=== PATIENT | male | born 1985 | race Caucasian/White ===

== ENCOUNTER → 2019-09-11 16:46 | Outpatient (CLI) | payer MEDICAID, SELFPAY ==
[2019-09-14 11:02] LABS: Neisseria gonorrhoeae, NAA Negative (Negative)
== END ==
PROVIDERS: Visit Provider Physician Assistant
DX: R30.0 Dysuria (principal)
CPT/HCPCS: 87491; 87591

== ENCOUNTER → 2019-09-23 12:45 | Outpatient (CLI) | payer MEDICAID, SELFPAY ==
--- NOTE | 2019-09-23 12:47 | XR_ITS ---
PROCEDURE: XR CHEST 2V CLINICAL HISTORY: cough Productive cough, smoker, chest pain COMPARISON: CXR2 XR chest AP from 06/01/2018 FINDINGS: The cardiomediastinal silhouette and pulmonary vascularity are within normal limits. The lungs are clear without infiltrates, suspicious nodules, or pleural effusions. No acute bony abnormalities. IMPRESSION: No acute findings. Dictated by: Kong Gonzalez MD 09/23/2019 17:23 Electronically signed by Kong Gonzalez MD in [place] 09/23/2019 17:23
== END ==
PROVIDERS: PCP Emergency Medicine; Referring Provider Nurse Practitioner Family; Visit Provider Nurse Practitioner Family
DX: R05 Cough (principal); F17.200 Nicotine dependence, unspecified, uncomplicated
CPT/HCPCS: 71046

== ENCOUNTER 2021-01-12 20:07 | Emergency (ER) | payer MEDICAID, SELFPAY ==
[2021-01-12 20:05] VITALS: BP 162/77; PULSE 87; RESP 18; TEMP 36.6; O2SAT 96; BMI 32.1
--- NOTE | 2021-01-12 20:14 | XR_ITS ---
PROCEDURE: XR CHEST AP CLINICAL HISTORY: fall Posttraumatic pain COMPARISON: CR CXR2 XR chest AP from 06/01/2018 CR XR CHEST 2V from 09/23/2019 FINDINGS: The cardiomediastinal silhouette and pulmonary vascularity are within normal limits. The lungs are clear without infiltrates, suspicious nodules, or pleural effusions. No acute bony abnormalities. IMPRESSION: No acute findings. Dictated by: Kong Gonzalez MD 01/13/2021 06:42 Kong Gonzalez MD in [place] 01/13/2021 06:42
--- NOTE | 2021-01-12 20:14 | XR_ITS ---
PROCEDURE: XR KNEE LT 3V CLINICAL INDICATION: fall Posttraumatic pain COMPARISON: No exams were available for comparison FINDINGS: No acute fracture or dislocation. Overlying artifact present from the patient's garment and multiple small opacities which could be due to soft tissue calcifications or artifact from something upon the patient or within the patient's garment. Exostosis is present at posterior distal aspect of the femur which may be due to muscular attachment and may be confirmed with follow-up. Other findings:Minimal osteoarthritic changes IMPRESSION: As above, no acute finding Dictated by: Kong Gonzalez MD 01/13/2021 06:46 Kong Gonzalez MD in [facility] 01/13/2021 06:46
--- NOTE | 2021-01-12 20:14 | CT_ITS ---
PROCEDURE: CT HEAD/BRAIN WO CON CLINICAL INDICATION: fall Head injury with headache/pain, contusion, abrasion or hematoma COMPARISON: CT HEADWO CT head/brain wo con from 06/01/[address] CERVICAL SPINE WO CON from 01/12/2021 TECHNIQUE: Axial images obtained. All CT scans at the facility use one or more dose reduction, viz: automated exposure control, ma/kV adjustment per patient size (including targeted exams where dose is matched to indication, i.e. head), or iterative reconstruction technique. FINDINGS: No midline shift, mass effect, intracranial hemorrhage, hydrocephalus, or extra-axial fluid collection is evident. The calvarium has an unremarkable appearance. No mastoid effusion. There is mild mucosal thickening of the ethmoid sinuses. Air-fluid levels present in the sphenoid sinus on the left IMPRESSION: No acute intracranial finding Dictated by: Kong Gonzalez MD 01/13/2021 09:01 Kong Gonzalez MD in [facility] 01/13/2021 09:01
--- NOTE | 2021-01-12 20:14 | XR_ITS ---
PROCEDURE: XR PELVIS 1-2V CLINICAL INDICATION: fall Posttraumatic pain COMPARISON: CR PEL1V XR pelvis 1-2V from 06/01/2018 TECHNIQUE: XR Pelvis AP View FINDINGS: No fracture or dislocation is evident. No significant degenerative change. Overlying artifact noted the mid pelvic region and right hip area with linear areas of lucency IMPRESSION: No acute findings. Dictated by: Kong Gonzalez MD 01/13/2021 06:43 Kong Gonzalez MD in [facility] 01/13/2021 06:43
--- NOTE | 2021-01-12 20:14 | CT_ITS ---
PROCEDURE: CT CERVICAL SPINE WO CON CLINICAL INDICATION: fall Neck injury with pain, contusion/abrasion or hematoma, cervical sprain/strain the COMPARISON: CT SPCERVWO CT cervical spine wo con from 06/01/[address] HEAD/BRAIN WO CON from 01/12/2021 TECHNIQUE: Axial images obtained with sagittal and coronal reformats. All CT scans at the facility use one or more dose reduction, viz: automated exposure control, ma/kV adjustment per patient size (including targeted exams where dose is matched to indication, i.e. head), or iterative reconstruction technique. Axial spiral CT scanning performed of the cervical spine beginning at the base of the skull and continuing to the upper T-spine. 3-D multiplanar reconstruction with 3-D manipulation of volumetric data set in image rendering was completed by the radiologist and/or technologist with the supervision of the radiologist on independent workstation. FINDINGS: Normal alignment. No fracture or dislocation. Mild bulging disc is present at C4-C5 eccentric toward the left. This may be better evaluated with MRI if clinically warranted. Lung apices are clear. IMPRESSION: 1. No acute fracture. 2. Mild bulging disc C4-C5 Dictated by: Kong Gonzalez MD 01/13/2021 09:05 Kong Gonzalez MD in [facility] 01/13/2021 09:05
[2021-01-12 20:22] LABS: Basophils # 0.1 K/mm3 (0-0.2); Chloride 100 mmol/L (98-107); Eosinophils # 0.8 K/mm3 (0.0-0.4); Eosinophils % 5.5 % (0.1-12.0); Hematocrit 51.2 % (42.0-52.0); Lymphocytes # 4.1 K/mm3 (0.7-4.5); Lymphocytes % 29.1 % (10-50); Mean Corpuscular HGB Conc 33.1 g/dL (31.8-35.4); Mean Corpuscular Hemoglobin 32.2 pg (27.0-31.2); Mean Corpuscular Volume 97.2 fl (80-94); Mean Platelet Volume 7.7 fl (7.4-10.4); Monocytes # 0.6 K/mm3 (0.1-1.0); Monocytes % 4.3 % (1.7-9.3); Neutrophils # 8.4 K/mm3 (1.8-7.8); Neutrophils % 60.1 % (37.0-80.0); Platelet Count 259 K/mm3 (142-424); Red Blood Count 5.27 M/mm3 (4.60-6.20); Red Cell Distribution Width 13.6 % (11.5-17.5); Sodium 140 mmol/L (136-145)
[2021-01-12 20:25] LABS: Alanine Aminotransferase 82 U/L (12-78); Alkaline Phosphatase 95 U/L (38-126); Aspartate Amino Transferase 57 U/L (17-59); Bilirubin,Total 1.1 mg/dl (0.2-1.3); Blood Urea Nitrogen 9 mg/dl (9-20); Calcium 9.6 mg/dl (8.4-10.2); Carbon Dioxide 33 mmol/L (22.0-30.0); Creatine Kinase 128 U/L (55-170); Creatinine Clearance Estimated 192 mL/min (50-200); Estimated Glomerular Filt Rate 111 ml/min (>60); GFR (African American) 134 ML/MIN (>60); Glucose 99 mg/dl (74-100)
--- NOTE | 2021-01-12 20:25 | HMH.EDLOEX ---
ED Disposition Clinical Impression: Acute internal derangement of knee Qualifiers: Laterality: left Qualified Code(s): M23.92 - Unspecified internal derangement of left knee Fall Qualifiers: Encounter type: initial encounter Qualified Code(s): W19.XXXA - Unspecified fall, initial encounter Disposition: Home, Self-Care Condition on Discharge: Good Instructions: DI for Knee Pain Additional Instructions: call pcp and ortho for follow up Referrals: Cedrick Dill MD [Primary Care Provider] - Dariusz Heath MD [Staff Physician] - - Critical Care Critical Care Time: No Attestation: On 01/12/21, the high probability of a clinically significant, sudden or life threatening deterioration of the following system(s) required my full and direct attention, intervention and personal management. The time I documented below is in addition to time spent performing reported procedures but includes the following listed in this critical care notation. Medical Decision Making - Medical Records Medical records reviewed: Yes: I reviewed the patient's medical records. - Sukhdeep Inquiry Pt receiving controlled substance: No Vital Signs: 01/12/21 20:05 Temperature 97.8 F Temperature Source Oral Pulse Rate [Right] 87 Respiratory Rate 18 Blood Pressure [Right Arm] 162/77 H Blood Pressure Mean [Right Arm] 105 Blood Pressure Source [Right Arm] Automatic Cuff Blood Pressure Position [Right Arm] Supine 02 Sat by Pulse Oximetry 96 Oxygen Delivery Method Room Air - Lab Data Lab results reviewed: Yes: I reviewed the patient's lab results. Lab Results 01/12/21 20:04: WBC 14.0 H, RBC 5.27, Hgb 17.0, Hct 51.2, MCV 97.2 H, MCH 32.2 H, MCHC 33.1, RDW 13.6, Plt Count 259, MPV 7.7, Neut % (Auto) 60.1, Lymph % (Auto) 29.1, Rhea % (Auto) 4.3, Eos % (Auto) 5.5, Baso % (Auto) 1.0, Neut # (Auto) 8.4 H, Lymph # (Auto) 4.1, Rhea # (Auto) 0.6, Eos # (Auto) 0.8 H, Baso # (Auto) 0.1 01/12/21 20:04: Sodium 140, Potassium 4.0, Chloride 100, Carbon Dioxide 33 H, Anion Gap 11.0, BUN 9, Creatinine 0.80, Estimated Creat Clear 192, Estimated GFR 111, Est GFR ( Amer) 134, Glucose 99, Calcium 9.6, Total Bilirubin 1.1, AST 57, ALT 82 H, Alkaline Phosphatase 95, Total Creatine Kinase 128, C-Reactive Protein 5.5 H, Total Protein 8.3 H, Albumin 4.7, Globulin 3.6 H, Albumin/Globulin Ratio 1.3 01/12/21 20:04: ESR 2 Result diagrams: 01/12/21 20:04 01/12/21 20:04 Orders (Tests/Meds): ED MEDICATIONS Discontinued Medications Generic Name Dose Route Start Last Admin Trade Name Freq PRN Reason Stop Dose Admin Ketorolac Tromethamine 30 mg 01/12/21 20:25 01/12/21 20:27 Ketorolac 30mg/Ml Vial IV 01/12/21 20:26 30 mg ONCE ONE Administration Ondansetron HCl 4 mg 01/12/21 20:27 01/12/21 20:27 Ondansetron 4mg/2ml Vial IV 01/12/21 20:28 4 mg ONCE ONE Administration ORDERS Category Date Time Status CT cervical spine wo con Stat Cat Scan 01/12/21 20:[address] head/brain wo con Stat Cat Scan 01/12/21 20:14 Taken XR chest AP Stat Exams 01/12/21 20:14 Taken XR knee LT 3V Stat Exams 01/12/21 20:14 Taken XR pelvis 1-2V Stat Exams 01/12/21 20:14 Taken - Radiology Data #1 Image(s): Chest, Pelvis, Knee Image Reviewed: Yes I reviewed the patient's radiology image Preliminary Findings: No Fracture Seen - CT Data CT Scan: Head, C-Spine Time Received: 21:[address] Reviewed: Yes: I have viewed the radiologist's interpretation Preliminary Findings: No Fracture Seen Medical Decision Narrative: has possible ext tendon injury will place in splint and refer to ortho Lower Extremity Injury HPI - General Chief Complaint: Extremity Injury, Lower Stated Complaint: knee pain Time Seen by Provider: 01/12/21 20:15 Mode of Arrival: EMS Source of Information: Patient, EMS, Medical Record Limitations: No Limitations Description of Symptoms (Recalled from ER Triage Doc. by RN): Pt states he fell on the ice and in
[2021-01-12 20:26] LABS: Albumin Level 4.7 g/dl (3.5-5.0); Albumin/Globulin Ratio 1.3 (1.1-1.8); Globulin 3.6 g/dL (1.3-3.2); Total Protein,Serum 8.3 g/dl (6.3-8.2)
[2021-01-12 20:30] VITALS: BP 119/66; PULSE 77; RESP 17; O2SAT 99
[2021-01-12 20:31] LABS: C-Reactive Protein 5.5 mg/L (0-4)
[2021-01-12 20:46] LABS: Erythrocyte Sedimentation Rate 2 mm/hr (0-15)
[2021-01-12 21:03] VITALS: BP 127/69; PULSE 79; RESP 17; O2SAT 98
[2021-01-12 21:44] VITALS: BP 158/76; PULSE 82; RESP 18; TEMP 36.6; O2SAT 96
== END 2021-01-12 21:48 | disposition home or self-care (01) ==
PROVIDERS: Emergency Provider Emergency Medicine; PCP Emergency Medicine
DX: M23.92 Unspecified internal derangement of left knee (principal); W00.0XXA Fall on same level due to ice and snow, initial encounter; Y92.89 Other specified places as the place of occurrence of the external cause; K21.9 Gastro-esophageal reflux disease without esophagitis; F17.210 Nicotine dependence, cigarettes, uncomplicated
CPT/HCPCS: 29505; 70450; 71045; 72125; 72170; 73562; 80053; 82550; 85025; 85651; 86140; 96374; 96375; 99283; J2405

== ENCOUNTER 2021-03-16 12:05 | Inpatient (IN) | payer MEDICAID, SELFPAY ==
[2021-03-16] VITALS (16 sets, daily range): BP systolic 114–147; BP diastolic 55–92; PULSE 66–101; RESP 16–20; TEMP -7.7–38.3; O2SAT 94–98; BMI 30.7; BMI 31.2; BMI 30.1
--- NOTE | 2021-03-16 12:23 | HMH.EDUTC ---
[facility] [place] Clinical Impression: Strep throat Disposition: Still a Patient Condition on Discharge: Undetermined Referrals: Cedrick Dill MD [Primary Care Provider] - Time of Disposition: 12:41 Medical Decision Making - Sukhdeep Inquiry Pt receiving controlled substance: No Vital Signs: 03/16/21 12:06 Temperature 98.8 F Temperature Source Oral Pulse Rate [Radial] 101 H Respiratory Rate 20 Blood Pressure [Right Arm] 137/84 Blood Pressure Mean [Right Arm] 101 Blood Pressure Position [Right Arm] Sitting 02 Sat by Pulse Oximetry 98 Oxygen Delivery Method Room Air Medical Decision Narrative: Exam suspicious for left peritonsillar abscess - sent to ER for further evaluation/imaging [facility] [place] - General Stated complaint: sore throat swollen Time Seen by Provider: 03/16/21 12:37 Mode of Arrival: Ambulatory Source of Information: Patient Limitations: No Limitations Description of Symptoms (Recalled from Triage Doc. by RN): TO ED PER [facility] CAR WITH C/O SORE THROAT STATES DX WITH STREP WEDNESDAY AT AN URGENT CARE GIVEN ANTIBIOTICS AND STEROID INJECTION WITH NO RELIEF IN SYMPTOMS. - History of Present Illness Provider Complaint: Patient states that he was diagnosed with strep throat on 03/13/21. He was seen at a different [facility] and was given shots and an antibiotic that he takes three times a day, but he can't recall what it is called. He is still running fever, feels like he cannot swallow, complains of drooling and muffled voice. Onset (ago): day(s) (3) Location: mouth Relieving factors: none Exacerbating factors: none Associated symptoms: fever/chills, malaise Treatments prior to arrival: none - Related Data Home Medications Medication Instructions Recorded Confirmed Omeprazole [Omeprazole 40mg 40 mg PO DAILY 06/01/18 02/07/21 Capsule] Previous Rx's Medication Instructions Recorded meloxicam 15 mg tablet 15 mg PO DAILY #10 tab 01/14/21 fluoxetine 40 mg capsule 40 mg PO DAILY #30 cap 02/07/21 trazodone 50 mg tablet 50 mg PO HS #30 tab 02/07/21 Allergies Allergy/AdvReac Type Severity Reaction Status Date / Time erythromycin base Allergy Verified 03/16/21 12:32 Penicillins Allergy Verified 03/16/21 12:32 [facility] History - Hepatitis A Screen Attestation statement:: This patient has been screened for Hepatitis A risk factors. I have reviewed the patient's past medical history: Yes Medical History: Reports:: Anxiety, Depression, Gastroesophageal Reflux Disease(GERD) Denies:: Cancer, Chronic Obstructive Pulmonary Disease (COPD), Diabetes Mellitus Type 1, Diabetes Mellitus Type 2, MRSA, Seizures Other Surgeries: Yes: Cholecystectomy, Colonoscopy Amputation: No Fractures: No - Social History Smoking Status: Current every day smoker Tobacco Type: cigarettes # Packs/Day (cigarettes): 1 Alcohol Intake: never Substance Use Type: denies use Occupational Status: employed Housing: house - Psychiatric History Pschychiatric History:: Reports:: Anxiety, Depression Family Hx:: Diabetes, Hypertension, Coronary Artery Disease, Hyperlipidemia ROS Obtained: Yes All systems reviewed & no additional complaints - Constitutional Constitutional: Reports fever(s), Reports headache(s), Reports malaise - ENT Ears, Nose, Mouth, and Throat: Reports change in voice, Reports difficulty swallowing, Reports pain with swallowing, Reports sore throat, Reports throat swelling Physical Exam - General General appearance: alert, in no apparent distress - Head Head exam: normocephalic - Eye Eye exam: Present: PERRL - ENT ENT exam: Present: TM's normal bilaterally - Expanded ENT Exam Throat exam: Present: tonsillar erythema, tonsillar exudate, muffled voice, other (swelling of left peritonsillar area) - Respiratory Respiratory exam: Present: normal lung sounds bilaterally - Cardiovascular Cardiovascular exam: Present: regular rate, normal rhythm - Neurological Exam Neurological
--- NOTE | 2021-03-16 13:33 | PC.NURSE ---
Dr Stepan guerrier
--- NOTE | 2021-03-16 13:35 | PC.NURSE ---
Dr Castellanos speaking to dr senior he request pt to be admitted
--- NOTE | 2021-03-16 13:37 | HMH.EDGENADL ---
ED Disposition Clinical Impression: Peritonsillar abscess Disposition: Admitted as Observation Condition on Discharge: Fair Referrals: Cedrick Dill MD [Primary Care Provider] - - Critical Care Critical Care Time: No Attestation: On 03/16/21, the high probability of a clinically significant, sudden or life threatening deterioration of the following system(s) required my full and direct attention, intervention and personal management. The time I documented below is in addition to time spent performing reported procedures but includes the following listed in this critical care notation. Medical Decision Making - Sukhdeep Inquiry Pt receiving controlled substance: Yes Sukhdeep was queried for this patient: Yes Risks and benefits of using a controlled substance: were not discussed with pt by me Vital Signs: 03/16/21 12:06 03/16/21 12:29 03/16/21 12:48 Temperature 101.0 F H 101 F H 98.8 F Temperature Source Oral Oral Pulse Rate 101 H Pulse Rate [Radial] 101 H 101 H Respiratory Rate 20 20 20 Blood Pressure 137/84 Blood Pressure [Right Arm] 137/84 137/84 Blood Pressure Mean [Right Arm] 101 101 Blood Pressure Source [Right Arm] Automatic Cuff Blood Pressure Position [Right Arm] Sitting Sitting 02 Sat by Pulse Oximetry 98 98 Oxygen Delivery Method Room Air Room Air Orders (Tests/Meds): ED MEDICATIONS Generic Name Dose Route Start Last Admin Trade Name Freq PRN Reason Stop Dose Admin Clindamycin Phosphate 900 mg/ 106 mls @ 100 mls/hr 03/16/21 13:45 Sodium Chloride IV 03/30/21 13:44 Q8H TI Protocol Sodium Chloride 1,000 mls @ 150 mls/hr 03/16/21 13:45 Sod Chlor 0.9% 1000ml Bag IV 04/15/21 13:44 .[id number] TI Discontinued Medications Generic Name Dose Route Start Last Admin Trade Name Freq PRN Reason Stop Dose Admin Dexamethasone Sodium Phosphate 10 mg 03/16/21 13:37 Dexamethasone 4mg/Ml 1ml Vial IV 03/16/21 13:38 ONCE ONE Morphine Sulfate 4 mg 03/16/21 13:39 Morphine 4mg/Ml Syringe IV 03/16/21 13:40 ONCE ONE Ondansetron HCl 4 mg 03/16/21 13:39 Ondansetron 4mg/2ml Vial IV 03/16/21 13:40 ONCE ONE ORDERS Category Date Time Status Basic Metabolic Panel Stat Lab 03/16/21 13:36 Ordered Complete Blood Count Auto Diff Stat Lab 03/16/21 13:36 Ordered Lactic Acid Stat Lab 03/16/21 13:36 Ordered Blood Culture Stat Micro 03/16/21 13:36 Ordered - Physician Consults Physician Consulted: Stepan Time: 13:35 Reason -: ENT Eval/Care Comment/Response: Clindamycin, dose of steroids, IV fluids, he will see the patient tomorrow in consult Additional Consult: Daria Dill Time: 13:40 Reason -: Admission Comment/Response: Agrees to admit the patient to the hospital. We discussed the patient's clinical information, including history, exam, laboratory and radiology results and ED course. Per hospital procedure, I will write temporary bridge inpatient orders on the patient. Specific orders requested by the admitting physician: per ENT General Adult HPI - General Chief complaint: PAIN Stated complaint: sore throat swollen Time Seen by Provider: 03/16/21 12:37 Mode of Arrival: Ambulatory Limitations: No Limitations Description of Symptoms (Recalled from ER Triage Doc. by RN): TO ED PER PVT WITH C/O SORETHROAT PT DX WITH STREP WEDNESDAY GIVEN ANTIBIOTICS AND STEROID INJECTION WITH NO RELIEF OF SYMPTOMS. STATES GETTING WORSE. PT CONTROLLING SECREATIONS DENIES FEVER, CHILLS - History of Present Illness HPI narrative: Sore throat for several days, his throat hurts on the left side. He is unable to sleep at night. Trouble swallowing, intermittent trouble breathing when he lays down at night. Seen in an urgent treatment center couple of days ago diagnosed with strep and started on antibiotics and given a dose of steroids. He has not improved. Seen at the urgent treatment center and sent to the emergency room for peritonsillar
[2021-03-16 14:14] LABS: Anion Gap 11.5 mEq/L (5-15); Basophils # 0.1 K/mm3 (0-0.2); Basophils % 0.4 % (0.1-2.0); Blood Urea Nitrogen 9 mg/dl (9-20); Calcium 9.8 mg/dl (8.4-10.2); Carbon Dioxide 25 mmol/L (22.0-30.0); Chloride 102 mmol/L (98-107); Creatinine Clearance Estimated 214 mL/min (50-200); Eosinophils # 0.1 K/mm3 (0.0-0.4); Eosinophils % 0.4 % (0.1-12.0); Estimated Glomerular Filt Rate 129 ml/min (>60); GFR (African American) 156 ML/MIN (>60); Glucose 154 mg/dl (74-100); Hematocrit 46.9 % (42.0-52.0); Hemoglobin 16.1 g/dL (14.1-18.0); Lymphocytes # 1.8 K/mm3 (0.7-4.5); Lymphocytes % 7.2 % (10-50); Mean Corpuscular HGB Conc 34.3 g/dL (31.8-35.4); Mean Corpuscular Hemoglobin 31.8 pg (27.0-31.2); Mean Corpuscular Volume 92.7 fl (80-94); Mean Platelet Volume 8.4 fl (7.4-10.4); Monocytes # 1.2 K/mm3 (0.1-1.0); Neutrophils # 21.5 K/mm3 (1.8-7.8); Platelet Count 359 K/mm3 (142-424); Potassium 3.5 mmoL/L (3.5-5.1); Red Blood Count 5.06 M/mm3 (4.60-6.20); Red Cell Distribution Width 12.9 % (11.5-17.5); Sodium 135 mmol/L (136-145); White Blood Count 24.7 K/mm3 (4.8-10.8)
[2021-03-16 14:17] LABS: MANUAL DIFFERENTIAL MANUAL DIFFERENTIAL (MANUAL DIFF)
[2021-03-16 14:19] LABS: Adenovirus,PCR Not Detected (NotDetected); Bordetella Pertussis Not Detected (NotDetected); Chlamydophila Pneumoniae, PCR Not Detected (NotDetected); Coronavirus 19, PCR Not Detected (NotDetected); Coronavirus 229E Not Detected (NotDetected); Coronavirus NL63 Not Detected (NotDetected); Coronavirus OC43 Not Detected (NotDetected); Coronovirus HKU1,PCR Not Detected (NotDetected); Human Metapneumovirus Not Detected (NotDetected); Influenza A, PCR Not Detected (NotDetected); Influenza AH1, 2009 Not Detected (NotDetected); Influenza AH1, PCR Not Detected (NotDetected); Influenza AH3,PCR Not Detected (NotDetected); Influenza B, PCR Not Detected (NotDetected); Parainfluenza 1, PCR Not Detected (NotDetected); Parainfluenza 2, PCR Not Detected (NotDetected); Parainfluenza 3, PCR Not Detected (NotDetected); Parainfluenza 4, PCR Not Detected (NotDetected); Respiratory Syncytial Virus Not Detected (NotDetected); Rhinovirus/Enterovirus Not Detected (NotDetected)
[2021-03-16 14:20] LABS: Lactic Acid 0.7 mmol/L (0.7-2.1); Mycoplasma Pneumoniae, PCR Not Detected (NotDetected)
[2021-03-16 14:35] LABS: Eosinophils % 1 % (0-3); Lymphocytes % 8 % (10-50); Monocytes % 5 % (2-9); Neutrophils % 83 % (42-76); Platelet Estimate Normal; RBC Morphology Normal; Total Cells Counted 100
--- NOTE | 2021-03-16 17:24 | PC.NURSE ---
REPORT CALLED TO DESIRE LEDESMA
--- NOTE | 2021-03-16 17:29 | PC.NURSE ---
PER DR. MARTÍNEZ, DR. NUNEZ IS TO SEE PATIENT IN THE AM OF 03/17/2021, NO CONSULT PHONED FROM THIS RN.
--- NOTE | 2021-03-16 17:40 | PC.NURSE ---
PT AND FAMILY UPDATED ON PLAN OF CARE
[2021-03-17 04:00] VITALS: BP 151/86; PULSE 83; RESP 17; TEMP 36.5; O2SAT 100
[2021-03-17 05:00] VITALS: BMI 30.3
[2021-03-17 07:37] VITALS: PULSE 86; RESP 16; O2SAT 98
[2021-03-17 08:00] VITALS: BP 134/92; PULSE 86; RESP 16; TEMP 36.9; O2SAT 98
--- NOTE | 2021-03-17 09:07 | HMH.PHAVTE ---
[facility] Pharmacy VTE Monitoring - Patient Demographics Admission date: 03/16/21 Report Date: 03/17/21 Time: 09:07 Allergies/Adverse Reactions: Patient Allergies erythromycin base Allergy (Verified 03/16/21 12:32) Penicillins Allergy (Verified 03/16/21 12:32) Height: 1.8 m Weight: 98.203 kg Patient Problems: Current Active Problems Peritonsillar abscess (Acute) - VTE Risk Labs: VTE Related Lab Results Hgb 16.1 g/dL (14.1-18.0) 03/16/21 13:45 Hct 46.9 % (42.0-52.0) 03/16/21 13:45 Plt Count 359 K/mm3 (142-424) 03/16/21 13:45 BUN 9 mg/dl (9-20) 03/16/21 13:45 Creatinine 0.70 mg/dl (0.66-1.25) 03/16/21 13:45 Estimated Creat Clear 214 mL/min (50-200) 03/16/21 13:45 Was VTE Risk Assessment Performed: Yes VTE Score: 0 VTE Risk Level: Very Low Risk - Prophylaxis VTE Prophylaxis Ordered?: Yes Types of VTE Prophylaxis: TEDS Knee High Location of Applied Device: Bilateral Lower Extremeties
--- NOTE | 2021-03-17 09:13 | HMH.HP ---
*Admission Date: 03/16/21 *Chief complaint: sore throat *History of present illness: 35 yr old male presents to the ED with c/o Sore throat for several days, his throat hurts on the left side. Patient states that he was diagnosed with strep throat on 03/13/21. He was seen at a different [facility] and was given shots and an antibiotic that he takes three times a day, but does not know the name of med. Pt states he is still running fever, feels like he cannot swallow, complains of drooling and muffled voice.Patient states he is unable to sleep at night, having trouble swallowing, intermittent trouble breathing when he lays down at night. Seen at the urgent treatment center and sent to the emergency room for peritonsillar abscess. Patient admitted for ENT consult and IV antibiotics. [facility] History I have reviewed the patient's past medical history: Yes Medical History: Reports:: Anxiety, Depression, Gastroesophageal Reflux Disease(GERD) Denies:: Cancer, Chronic Obstructive Pulmonary Disease (COPD), Diabetes Mellitus Type 1, Diabetes Mellitus Type 2, MRSA, Seizures *Have you ever received a pneumonia vaccine?: No *Have you received a flu vaccine this season?: No Other Surgeries: Yes: Cholecystectomy, Colonoscopy, Other (jaw surgery) Amputation: No Fractures: No - *Social History Last grade of school completed: High school graduate Smoking Status: Current every day smoker Tobacco Type: cigarettes # Packs/Day (cigarettes): 1 Alcohol Intake: never Substance Use Type: denies use *Occupational Status:: unemployed Housing: house Household Members: family *Travel in the last 8 weeks: None - Psychiatric History Pschychiatric History:: Reports:: Anxiety, Depression Family Hx:: Asthma, Cancer, Diabetes, Heart Attack, Hyperlipidemia, Hypertension, Stroke, Thyroid Disorder Review of Systems - Review of Systems Review of systems:: pertinent systems reviewed and negative unless documented below - Constitutional Reports fever(s), Denies body ache(s), Denies lack of energy - Eyes Denies blurry vision - ENT Reports pain with swallowing, Reports sore throat, Reports throat swelling, Denies bleeding gums - *Cardiovascular Denies chest pain at rest - *Respiratory Denies chest congestion - *Gastrointestinal Denies nausea, Denies vomiting - *Genitourinary Denies urinary frequency - *Musculoskeletal Denies abnormal walking - Integumentary/Breasts Denies bleeding lesions, Denies rash - *Neurologic Reports headache(s), Denies dizziness - Psychiatric Denies lack of enjoyment - Endocrine Denies excessive sweating - Hematologic/Lymphatic Denies easy bruising - Allergic/Immunologic Reports throat swelling, Denies seasonal runny nose, Denies tongue swelling, Denies wheezing Meds Home Medications Medication Instructions Recorded Confirmed Type Fluoxetine HCl 40 mg PO DAILY 03/16/21 03/16/21 History Allergies Allergy/AdvReac Type Severity Reaction Status Date / Time erythromycin base Allergy Verified 03/16/21 12:32 Penicillins Allergy Verified 03/16/21 12:32 Exam Vital signs and Labs for Last 24 Hours: Temp Pulse Resp BP Pulse Ox 98.4 F 86 16 134/92 H 98 03/17/21 08:00 03/17/21 08:00 03/17/21 08:00 03/17/21 08:00 03/17/21 08:00 Laboratory Results - last 24 hr 03/16/21 13:45: WBC 24.7 H*, RBC 5.06, Hgb 16.1, Hct 46.9, MCV 92.7, MCH 31.8 H, MCHC 34.3, RDW 12.9, Plt Count 359, MPV 8.4, Neut % (Auto) 87.0 H, Lymph % (Auto) 7.2 L, [place] % (Auto) 5.0, Eos % (Auto) 0.4, Baso % (Auto) 0.4, Neut # (Auto) 21.5 H, Lymph # (Auto) 1.8, [place] # (Auto) 1.2 H, Eos # (Auto) 0.1, Baso # (Auto) 0.1, Total Counted 100, Neutrophils % (Manual) 83 H, Band Neutrophils % 2.0, Lymphocytes % (Manual) 8 L, Monocytes % (Manual) 5, Eosinophils % (Manual) 1, Metamyelocytes % 1.0, Platelet Estimate Normal, RBC Morphology Normal 03/16/21 13:45: Sodium 135 L, Potassium 3.5, Chloride 102, Carbon Dioxide 25, Anion Gap 11.5, BUN 9, Cr
--- NOTE | 2021-03-17 12:17 | CT_ITS ---
PROCEDURE: CT SOFT TISSUE NECK WO CON CLINICAL HISTORY: Possible arabella-tonsillar abscess COMPARISON: No exams were available for comparison TECHNIQUE: Oral Contrast: None IV Contrast: None Axial images obtained with sagittal and coronal reformats. All CT scans at the facility use one or more dose reduction, viz: automated exposure control, ma/kV adjustment per patient size (including targeted exams where dose is matched to indication, i.e. head), or iterative reconstruction technique. FINDINGS: Abscess evaluation in the neck is very limited without IV contrast. There is mild prominence of the adenoids. [place] tonsils are prominent left greater than right. There is minimal vague low-density change in the left palatine tonsil. However, a definite abscess is not identified. There is a mildly enlarged cervical lymph node in the left jugular chain at 2.6 by 1.8 cm. Other smaller nodes are present bilaterally. The epiglottis and glottic region have an unremarkable appearance. IMPRESSION: 1. Enlarged palatine tonsils left greater than right consistent with tonsillitis. No definite peritonsillar abscess. There is vague decreased attenuation in the left palatine tonsil. This could be due to mild phlegmonous change. Abscess evaluation is very limited without IV contrast. If symptoms persist, consider follow-up study with contrast enhancement. 2. Mild cervical adenopathy with the largest node in the left jugular chain at 2.6 cm. Dictated by: Kong Gonzalez MD 03/17/2021 15:57 Kong Gonzalez MD in [place] 03/17/2021 15:57
[2021-03-17 12:57] LABS: Basophils # 0.1 K/mm3 (0-0.2); Basophils % 0.6 % (0.1-2.0); Eosinophils # 0.1 K/mm3 (0.0-0.4); Eosinophils % 0.5 % (0.1-12.0); Hematocrit 45.6 % (42.0-52.0); Hemoglobin 15.8 g/dL (14.1-18.0); Lymphocytes % 17.1 % (10-50); Mean Corpuscular HGB Conc 34.7 g/dL (31.8-35.4); Mean Corpuscular Hemoglobin 31.8 pg (27.0-31.2); Mean Corpuscular Volume 91.8 fl (80-94); Mean Platelet Volume 8.2 fl (7.4-10.4); Monocytes # 0.7 K/mm3 (0.1-1.0); Neutrophils # 13.7 K/mm3 (1.8-7.8); Neutrophils % 77.8 % (37.0-80.0); Platelet Count 383 K/mm3 (142-424); Red Blood Count 4.97 M/mm3 (4.60-6.20); Red Cell Distribution Width 13.2 % (11.5-17.5); White Blood Count 17.6 K/mm3 (4.8-10.8)
[2021-03-17 12:58] LABS: Chloride 110 mmol/L (98-107); Potassium 3.5 mmoL/L (3.5-5.1); Sodium 140 mmol/L (136-145)
[2021-03-17 13:00] LABS: MANUAL DIFFERENTIAL MANUAL DIFFERENTIAL (MANUAL DIFF)
--- NOTE | 2021-03-17 13:00 | HMH.CONS ---
*Admission Date: 03/16/21 *Reason for consult:: possible left peritonsillar abscess *History of present illness: x1 week [facility] History I have reviewed the patient's past medical history: Yes Medical History: Reports:: Anxiety, Depression, Gastroesophageal Reflux Disease(GERD) Denies:: Cancer, Chronic Obstructive Pulmonary Disease (COPD), Diabetes Mellitus Type 1, Diabetes Mellitus Type 2, MRSA, Seizures *Have you ever received a pneumonia vaccine?: No *Have you received a flu vaccine this season?: No Other Surgeries: Yes: Cholecystectomy, Colonoscopy, Other (jaw surgery) Amputation: No Fractures: No - *Social History Last grade of school completed: High school graduate Smoking Status: Current every day smoker Tobacco Type: cigarettes # Packs/Day (cigarettes): 1 Alcohol Intake: never Substance Use Type: denies use *Occupational Status:: unemployed Housing: house Household Members: family *Travel in the last 8 weeks: None - Psychiatric History Pschychiatric History:: Reports:: Anxiety, Depression Family Hx:: Asthma, Cancer, Diabetes, Heart Attack, Hyperlipidemia, Hypertension, Stroke, Thyroid Disorder Review of Systems - ENT Comments: severe pain left side of throat - *Neurologic Reports headache(s), Denies abnormal walking, Denies dizziness Meds Home Medications Medication Instructions Recorded Confirmed Type Fluoxetine HCl 40 mg PO DAILY 03/16/21 03/16/21 History Allergies Allergy/AdvReac Type Severity Reaction Status Date / Time erythromycin base Allergy Verified 03/16/21 12:32 Penicillins Allergy Verified 03/16/21 12:32 Exam Vital signs and Labs for Last 24 Hours: Temp Pulse Resp BP Pulse Ox 98.4 F 86 16 134/92 H 98 03/17/21 08:00 03/17/21 08:00 03/17/21 08:00 03/17/21 08:00 03/17/21 08:00 Laboratory Results - last 24 hr 03/16/21 13:45: WBC 24.7 H*, RBC 5.06, Hgb 16.1, Hct 46.9, MCV 92.7, MCH 31.8 H, MCHC 34.3, RDW 12.9, Plt Count 359, MPV 8.4, Neut % (Auto) 87.0 H, Lymph % (Auto) 7.2 L, [place] % (Auto) 5.0, Eos % (Auto) 0.4, Baso % (Auto) 0.4, Neut # (Auto) 21.5 H, Lymph # (Auto) 1.8, [place] # (Auto) 1.2 H, Eos # (Auto) 0.1, Baso # (Auto) 0.1, Total Counted 100, Neutrophils % (Manual) 83 H, Band Neutrophils % 2.0, Lymphocytes % (Manual) 8 L, Monocytes % (Manual) 5, Eosinophils % (Manual) 1, Metamyelocytes % 1.0, Platelet Estimate Normal, RBC Morphology Normal 03/16/21 13:45: Sodium 135 L, Potassium 3.5, Chloride 102, Carbon Dioxide 25, Anion Gap 11.5, BUN 9, Creatinine 0.70, Estimated Creat Clear 214, Estimated GFR 129, Est GFR ( Amer) 156, Glucose 154 H, Calcium 9.8 03/16/21 13:45: Lactate 0.7 03/16/21 13:45: Chlamy pneumoniae PCR Not detected, Adenovirus (PCR) Not detected, B. pertussis DNA (PCR) Not detected, Coronavirus OC43 (PCR) Not detected, Coronavirus HKU1 (PCR) Not detected, Coronavirus 229E (PCR) Not detected, SARS-CoV-2 (PCR) Not detected, Coronavirus NL63 (PCR) Not detected, Human Metapneumovir PCR Not detected, Influenza A (H1) PCR Not detected, Influ A (H1N1/09) PCR Not detected, Influenza A (H3) PCR Not detected, Influenza Type A (PCR) Not detected, Influenza Type B (PCR) Not detected, M. pneumoniae (PCR) Not detected, Parainfluenza 1 (PCR) Not detected, Parainfluenza 2 (PCR) Not detected, Parainfluenza 3 (PCR) Not detected, Parainfluenza 4 (PCR) Not detected, RSV (PCR) Not detected, Entero/Rhino (PCR) Not detected 03/17/21 12:38: WBC 17.6 H D, RBC 4.97, Hgb 15.8, Hct 45.6, MCV 91.8, MCH 31.8 H, MCHC 34.7, RDW 13.2, Plt Count 383, MPV 8.2, Neut % (Auto) 77.8, Lymph % (Auto) 17.1, [place] % (Auto) 4.0, Eos % (Auto) 0.5, Baso % (Auto) 0.6, Neut # (Auto) 13.7 H, Lymph # (Auto) 3.0, [place] # (Auto) 0.7, Eos # (Auto) 0.1, Baso # (Auto) 0.1 03/17/21 12:38: Sodium 140, Potassium 3.5, Chloride 110 H I & O for Last 24 hours: Intake & Output 03/14/21 03/15/21 03/16/21 03/17/21 23:59 23:59 23:59 23:59 Intake Total 240 / 240 Output Total 0 / 0 400 / 400 Balance / 24
[2021-03-17 13:01] LABS: Alanine Aminotransferase 41 U/L (12-78); Albumin Level 3.9 g/dl (3.5-5.0); Alkaline Phosphatase 106 U/L (38-126); Anion Gap 11.5 mEq/L (5-15); Aspartate Amino Transferase 31 U/L (17-59); Bilirubin,Total 0.9 mg/dl (0.2-1.3); Blood Urea Nitrogen 13 mg/dl (9-20); Calcium 9.4 mg/dl (8.4-10.2); Carbon Dioxide 22 mmol/L (22.0-30.0); Creatinine Clearance Estimated 207 mL/min (50-200); Estimated Glomerular Filt Rate 129 ml/min (>60); GFR (African American) 156 ML/MIN (>60); Globulin 3.9 g/dL (1.3-3.2); Glucose 127 mg/dl (74-100); Total Protein,Serum 7.8 g/dl (6.3-8.2)
[2021-03-17 13:10] LABS: Monoscreen (Rapid) Negative (Negative)
[2021-03-17 13:23] LABS: Lymphocytes % 19 % (10-50); Monocytes % 5 % (2-9); Neutrophils % 76 % (42-76); Total Cells Counted 100
[2021-03-17 13:24] LABS: Platelet Estimate Normal; RBC Morphology Normal
[2021-03-17 13:40] LABS: Erythrocyte Sedimentation Rate 41 mm/hr (0-15)
--- NOTE | 2021-03-17 15:27 | PC.NURSE ---
Pt has been pleasant and cooperative this shift. A&O X4. Pt has complained of pain X 2 thus far and receives Morphine per MAR with favorable results. Lungs CTA. No edema noted. Skin is C/D/I. Pt ambulates independently to/from the bathroom and throughout the room. Pt uses the urinal to void clear, yellow urine without issue. No BM this shift. Appetite is good and pt eats the majority of all meals. 18 G peripheral IV in the RT AC is patent and infusing NS @ 150 ML/HR. VSS. Call light within reach. Will continue to monitor.
[2021-03-17 20:00] VITALS: BP 143/81; PULSE 78; RESP 28; TEMP 37.1; O2SAT 97
--- NOTE | 2021-03-18 02:38 | PC.NURSE ---
Pt A&O x4 and has slept on and off through the night. Pt has c/o 08/31 pain x2, morphine given per mar with desired effects. Lungs CTA, on room air. Bowel sounds x4, abd soft and nontender. IV patent, NS @150. Pt able to ambulate independently to BR. VSS, call light in reach, no concerns at this time.
[2021-03-18 04:00] VITALS: BP 173/82; PULSE 74; RESP 24; TEMP 36.7; O2SAT 98
[2021-03-18 05:00] VITALS: BMI 30.2
[2021-03-18 07:26] VITALS: BP 172/95; PULSE 81; RESP 19; TEMP 36.6; O2SAT 95
[2021-03-18 07:40] VITALS: PULSE 81; RESP 19; O2SAT 95
[2021-03-18 07:41] LABS: Basophils # 0.1 K/mm3 (0-0.2); Basophils % 0.7 % (0.1-2.0); Eosinophils # 0.2 K/mm3 (0.0-0.4); Eosinophils % 1.7 % (0.1-12.0); Hematocrit 44.2 % (42.0-52.0); Lymphocytes # 3.3 K/mm3 (0.7-4.5); Lymphocytes % 27.5 % (10-50); Mean Corpuscular Hemoglobin 32.1 pg (27.0-31.2); Mean Corpuscular Volume 94.5 fl (80-94); Mean Platelet Volume 8.3 fl (7.4-10.4); Monocytes # 0.5 K/mm3 (0.1-1.0); Monocytes % 4.5 % (1.7-9.3); Neutrophils % 65.6 % (37.0-80.0); Platelet Count 348 K/mm3 (142-424); Red Blood Count 4.68 M/mm3 (4.60-6.20); White Blood Count 12.1 K/mm3 (4.8-10.8)
[2021-03-18 07:49] LABS: Chloride 109 mmol/L (98-107); Sodium 139 mmol/L (136-145)
[2021-03-18 07:50] LABS: Potassium 3.8 mmoL/L (3.5-5.1)
[2021-03-18 07:52] LABS: Blood Urea Nitrogen 13 mg/dl (9-20); Creatinine Clearance Estimated 206 mL/min (50-200); Estimated Glomerular Filt Rate 129 ml/min (>60); GFR (African American) 156 ML/MIN (>60)
[2021-03-18 07:53] LABS: Anion Gap 11.8 mEq/L (5-15); Calcium 8.9 mg/dl (8.4-10.2); Carbon Dioxide 22 mmol/L (22.0-30.0); Glucose 97 mg/dl (74-100)
--- NOTE | 2021-03-18 08:28 | HMH.CONS ---
*Admission Date: 03/16/21 *Reason for consult:: possible left resolving peritonsillar abscess *History of present illness: x1 week [facility] History I have reviewed the patient's past medical history: Yes Medical History: Reports:: Anxiety, Depression, Gastroesophageal Reflux Disease(GERD) Denies:: Cancer, Chronic Obstructive Pulmonary Disease (COPD), Diabetes Mellitus Type 1, Diabetes Mellitus Type 2, MRSA, Seizures *Have you ever received a pneumonia vaccine?: No *Have you received a flu vaccine this season?: No Other Surgeries: Yes: Cholecystectomy, Colonoscopy, Other (jaw surgery) Amputation: No Fractures: No - *Social History Last grade of school completed: High school graduate Smoking Status: Current every day smoker Tobacco Type: cigarettes # Packs/Day (cigarettes): 1 Alcohol Intake: never Substance Use Type: denies use *Occupational Status:: unemployed Housing: house Household Members: family *Travel in the last 8 weeks: None - Psychiatric History Pschychiatric History:: Reports:: Anxiety, Depression Family Hx:: Asthma, Cancer, Diabetes, Heart Attack, Hyperlipidemia, Hypertension, Stroke, Thyroid Disorder Review of Systems - ENT Comments: enlarged left tonsil; reports pain - *Neurologic Reports headache(s), Denies abnormal walking, Denies dizziness Meds Home Medications Medication Instructions Recorded Confirmed Type Fluoxetine HCl 40 mg PO DAILY 03/16/21 03/16/21 History Trazodone HCl [Desyrel 50mg tablet] 50 mg PO HS 03/17/21 03/17/21 History Allergies Allergy/AdvReac Type Severity Reaction Status Date / Time erythromycin base Allergy Verified 03/16/21 12:32 Penicillins Allergy Verified 03/16/21 12:32 Exam Vital signs and Labs for Last 24 Hours: Temp Pulse Resp BP Pulse Ox 98 F 81 19 172/95 H 95 03/18/21 07:26 03/18/21 07:40 03/18/21 07:40 03/18/21 07:26 03/18/21 07:40 Laboratory Results - last 24 hr 03/17/21 12:38: Monoscreen Negative 03/17/21 12:38: WBC 17.6 H D, RBC 4.97, Hgb 15.8, Hct 45.6, MCV 91.8, MCH 31.8 H, MCHC 34.7, RDW 13.2, Plt Count 383, MPV 8.2, Neut % (Auto) 77.8, Lymph % (Auto) 17.1, [place] % (Auto) 4.0, Eos % (Auto) 0.5, Baso % (Auto) 0.6, Neut # (Auto) 13.7 H, Lymph # (Auto) 3.0, [place] # (Auto) 0.7, Eos # (Auto) 0.1, Baso # (Auto) 0.1, Total Counted 100, Neutrophils % (Manual) 76, Lymphocytes % (Manual) 19, Monocytes % (Manual) 5, Platelet Estimate Normal, RBC Morphology Normal, ESR 41 H 03/17/21 12:38: Sodium 140, Potassium 3.5, Chloride 110 H, Carbon Dioxide 22, Anion Gap 11.5, BUN 13 D, Creatinine 0.70, Estimated Creat Clear 207, Estimated GFR 129, Est GFR ( Amer) 156, Glucose 127 H, Calcium 9.4, Total Bilirubin 0.9, AST 31, ALT 41, Alkaline Phosphatase 106, Total Protein 7.8, Albumin 3.9, Globulin 3.9 H, Albumin/Globulin Ratio 1.0 L 03/18/21 07:27: WBC 12.1 H D, RBC 4.68, Hgb 15.0, Hct 44.2, MCV 94.5 H, MCH 32.1 H, MCHC 34.0, RDW 13.0, Plt Count 348, MPV 8.3, Neut % (Auto) 65.6, Lymph % (Auto) 27.5, [place] % (Auto) 4.5, Eos % (Auto) 1.7, Baso % (Auto) 0.7, Neut # (Auto) 8.0 H, Lymph # (Auto) 3.3, [place] # (Auto) 0.5, Eos # (Auto) 0.2, Baso # (Auto) 0.1 03/18/21 07:27: Sodium 139, Potassium 3.8, Chloride 109 H, Carbon Dioxide 22, Anion Gap 11.8, BUN 13, Creatinine 0.70, Estimated Creat Clear 206, Estimated GFR 129, Est GFR ( Amer) 156, Glucose 97 D, Calcium 8.9 I & O for Last 24 hours: Intake & Output 04/24/21 04/25/21 04/26/21 04/27/21 23:59 23:59 23:59 23:59 Intake Total 240 / 240 1611 / 1611 Output Total 0 / 0 400 / 400 375 / 375 Balance 240 / 240 1211 / 1211 -375 / -375 Weight 216 lb 2 oz 216 lb 8 oz 216 lb 5 oz - *Routine HEENT Exam Comments: This patient was feeling better when examined at 8 AM on March 18, 2021. He continues to have enlarged inflamed tonsils particularly on the left side but the peritonsillar swelling has regressed there was left cervical lymphadenitis, and we did review his CT scan which confirmed the pres
--- NOTE | 2021-03-18 08:59 | HMH.DCSUM ---
General - General Admission date:: 03/16/21 Discharge date: 03/18/21 HPI HPI: 35 yr old male presents to the ED with c/o Sore throat for several days, his throat hurts on the left side. Patient states that he was diagnosed with strep throat on 03/13/21. He was seen at a different [facility] and was given shots and an antibiotic that he takes three times a day, but does not know the name of med. Pt states he is still running fever, feels like he cannot swallow, complains of drooling and muffled voice.Patient states he is unable to sleep at night, having trouble swallowing, intermittent trouble breathing when he lays down at night. Seen at the urgent treatment center and sent to the emergency room for peritonsillar abscess. Patient admitted for ENT consult and IV antibiotics. Hospital Course Hospital Course: 35 yr old male presents to the ED with c/o Sore throat for several days, his throat hurts on the left side. Patient states that he was diagnosed with strep throat on 03/13/21. He was seen at a different [facility] and was given shots and an antibiotic that he takes three times a day, but does not know the name of med. Pt states he is still running fever, feels like he cannot swallow, complains of drooling and muffled voice.Patient states he is unable to sleep at night, having trouble swallowing, intermittent trouble breathing when he lays down at night. Seen at the urgent treatment center and sent to the emergency room for peritonsillar abscess. Patient admitted for ENT consult and IV antibiotics (Per Aniket Reeves APRN). On admission white blood cell count 24.7 decreased to 12.1, Chemistries unremarkable SARS-COV-2 negative ENT is seen and recommends: This patient was feeling better when examined at 8 AM on March 18, 2021. He continues to have enlarged inflamed tonsils particularly on the left side but the peritonsillar swelling has regressed there was left cervical lymphadenitis, and we did review his CT scan which confirmed the presence of a left jugular chain node measuring 2.6 cm. And also the enlarged palatine tonsils with the left tonsil showing some decreased attenuation suggesting that there may be a cavity within the left tonsil however the good news is that the peritonsillar swelling has regressed. The patient was feeling better and is able to go home he needs to continue on clindamycin orally for at least 1 week and we will follow up with him in 1 week's time. Given the problems that he has had it would be best to proceed with a tonsillectomy once he is stable. I should note that his white blood count has also come down significantly it was 24,000 and on March 18 it was 12,000. As well the Monospot test was negative. And the ESR was 41. In summary his condition is stabilized and I will follow up with him in 1 week's time. This was also discussed with Dr Dill. Dr. Naseem Ying Patient sitting up in bed respirations easy even he reports left neck pain has decreased and he is feeling better. Reports tolerating breakfast without any difficulties, denies nausea/vomiting. Discussed discharged home with him, he is agreeable to this PLAN: 1. We will discharge home today 2. Clindamycin 300 mg 3 times daily x7 days 3. Ketorolac 10 mg p.o. every 6 as needed #10 4. Follow-up with Dr. Ying in 1 week, appointment made 5. Follow-up with PCP in 1 week Objective Vital signs: Temp Pulse Resp BP Pulse Ox 98 F 81 19 172/95 H 95 03/18/21 07:26 03/18/21 07:40 03/18/21 07:40 03/18/21 07:26 03/18/21 07:40 no acute distress - *Routine HEENT Exam Head: Present: normocephalic Eye: Present: EOMI ENT: Present: mucous membranes moist - *Routine Neck Exam Present: tenderness, swelling, trachea midline. Absent: tracheal deviation - *Routine Respiratory Exam Present: CTA bilaterally. Absent: accessory muscle use - *Routine Cardiovascular Exam Present: RRR - *Routine Abdominal Exam Present:
== END 2021-03-18 09:48 | disposition home or self-care (01) | DRG 153 ==
LOC: UTC 12:41 → ER 12:42 → 2ND 03-17 07:17
PROVIDERS: Nurse Practitioner Family; Otolaryngology; Admitting Provider Internal Medicine Adolescent Medicine; Emergency Provider Emergency Medicine; PCP Emergency Medicine; Visit Provider Emergency Medicine
DX: J36 Peritonsillar abscess (principal); Z88.1 Allergy status to other antibiotic agents; Z88.0 Allergy status to penicillin; F17.210 Nicotine dependence, cigarettes, uncomplicated
CPT/HCPCS: 36415; 70490; 80048; 80053; 83605; 85007; 85025; 85651; 86318; 87040; 87581; 87633; 87798; 96365; 96375; 99281; J2405

== ENCOUNTER 2021-05-18 16:48 | Emergency (ER) | payer MEDICAID, SELFPAY ==
[2021-05-18 17:01] VITALS: BP 135/78; PULSE 131; RESP 18; TEMP 37.7; O2SAT 97; BMI 29.7
--- NOTE | 2021-05-18 17:16 | HMH.EDGENADL ---
ED Disposition Clinical Impression: Tonsillitis Disposition: Home, Self-Care Condition on Discharge: Fair Instructions: DI for Pharyngitis/Tonsillopharyngitis -- Adult Additional Instructions: Tylenol or ibuprofen for pain and fever. Rest and drink plenty of fluids. Take clindamycin as prescribed. See Dr. Guillen in his office for follow-up, call tomorrow. Additional instructions for UPPER RESPIRATORY INFECTION: Return immediately if you have an uncontrollable fever greater than 104 degrees, difficulty breathing or shortness of breath, persistent vomiting, or inability to swallow. Prescriptions: clindamycin HCL [Clindamycin HCl] 300 mg PO QID #40 cap Transmission Status: Pending to [facility] Referrals: Julian Guillen MD [Primary Care Provider] - - Critical Care Critical Care Time: No Attestation: On 05/18/21, the high probability of a clinically significant, sudden or life threatening deterioration of the following system(s) required my full and direct attention, intervention and personal management. The time I documented below is in addition to time spent performing reported procedures but includes the following listed in this critical care notation. Medical Decision Making - Sukhdeep Inquiry Pt receiving controlled substance: Yes Sukhdeep was queried for this patient: Yes Risks and benefits of using a controlled substance: were discussed with pt by me Vital Signs: 05/18/21 17:01 05/18/21 17:06 05/18/21 17:49 Temperature 100 F H Temperature Source Oral Oral Pulse Rate 124 H Pulse Rate [Right] 131 H Respiratory Rate 18 20 Blood Pressure 126/75 Blood Pressure [Right Arm] 135/78 Blood Pressure Mean Blood Pressure Mean [Right Arm] 97 Blood Pressure Source Automatic Cuff Blood Pressure Source [Right Arm] Automatic Cuff Blood Pressure Position Sitting Blood Pressure Position [Right Arm] Sitting 02 Sat by Pulse Oximetry 97 94 L Oxygen Delivery Method Room Air Room Air 05/18/21 17:50 05/18/21 18:00 Temperature Temperature Source Pulse Rate 117 H 111 H Pulse Rate [Right] Respiratory Rate 20 27 H Blood Pressure 139/81 Blood Pressure [Right Arm] Blood Pressure Mean 89 Blood Pressure Mean [Right Arm] Blood Pressure Source Blood Pressure Source [Right Arm] Blood Pressure Position Blood Pressure Position [Right Arm] 02 Sat by Pulse Oximetry 93 L 93 L Oxygen Delivery Method - Lab Data Lab Results 05/18/21 17:30: WBC 22.0 H*, RBC 5.23, Hgb 17.0, Hct 47.9, MCV 91.6, MCH 32.4 H, MCHC 35.4, RDW 13.6, Plt Count 244, MPV 7.8, Neut % (Auto) 88.6 H, Lymph % (Auto) 5.7 L, [place] % (Auto) 4.0, Eos % (Auto) 1.3, Baso % (Auto) 0.3, Neut # (Auto) 19.5 H, Lymph # (Auto) 1.3, [place] # (Auto) 0.9, Eos # (Auto) 0.3, Baso # (Auto) 0.1, Total Counted 100, Neutrophils % (Manual) 80 H, Lymphocytes % (Manual) 13, Monocytes % (Manual) 7, Platelet Estimate Normal, RBC Morphology Normal, ESR 7 05/18/21 17:30: Group A Strep Rapid Negative 05/18/21 17:30: SARS-CoV-2 (PCR) Not detected, Influenza A Untype (PCR) Not detected, Influenza Type B (PCR) Not detected 05/18/21 17:30: Sodium 140, Potassium 3.7, Chloride 106, Carbon Dioxide 25, BUN 7 L, Creatinine 0.80, Estimated Creat Clear 178, Estimated GFR 111, Est GFR ( Amer) 134, Glucose 147 H, Calcium 9.3 05/18/21 17:45: Lactate 1.9 Result diagrams: 05/18/21 17:30 05/18/21 17:30 Orders (Tests/Meds): ED MEDICATIONS Discontinued Medications Generic Name Dose Route Start Last Admin Trade Name Ravi PRN Reason Stop Dose Admin Acetaminophen 1,000 mg 05/18/21 17:25 05/18/21 17:58 Acetaminophen 500mg Tab PO 05/18/21 17:26 1,000 mg ONCE ONE Administration Hydromorphone HCl 0.5 mg 05/18/21 17:25 05/18/21 17:58 Hydromorphone 2mg/Ml Syringe IV 05/18/21 17:26 0.5 mg ONCE ONE Administration Clindamycin Phosphate 600 mg/ 104 mls @ 100 mls/hr 05/18/21 17:24 05/18/21 17:45 Sodium Chloride IV 05/18/21
--- NOTE | 2021-05-18 17:39 | XR_ITS ---
PROCEDURE INFORMATION: Exam: XR Chest Exam date and time: 05/18/2021 5:39 PM Age: 35 years old Clinical indication: Patient HX: Cough and fever for 3 days. Smoker, no chest surgeries per patient. ; Additional info: Cough, fever TECHNIQUE: Imaging protocol: XR of the chest. Views: 2 views. COMPARISON: CR XR CHEST AP 01/12/2021 8:48 PM FINDINGS: Lungs: Unremarkable. No consolidation. Pleural spaces: Unremarkable. No pleural effusion. No pneumothorax. Heart/Mediastinum: Unremarkable. No cardiomegaly. Bones/joints: Unremarkable. IMPRESSION: No acute cardiopulmonary disease.
[2021-05-18 17:46] LABS: Coronavirus 19, PCR Not Detected (NotDetected); Influenza A, PCR Not Detected (NotDetected)
[2021-05-18 17:47] LABS: Influenza B, PCR Not Detected (NotDetected)
[2021-05-18 17:48] LABS: Basophils # 0.1 K/mm3 (0-0.2); Basophils % 0.3 % (0.1-2.0); Eosinophils # 0.3 K/mm3 (0.0-0.4); Eosinophils % 1.3 % (0.1-12.0); Hematocrit 47.9 % (42.0-52.0); Lymphocytes # 1.3 K/mm3 (0.7-4.5); Lymphocytes % 5.7 % (10-50); Mean Corpuscular HGB Conc 35.4 g/dL (31.8-35.4); Mean Corpuscular Hemoglobin 32.4 pg (27.0-31.2); Mean Corpuscular Volume 91.6 fl (80-94); Mean Platelet Volume 7.8 fl (7.4-10.4); Monocytes # 0.9 K/mm3 (0.1-1.0); Neutrophils # 19.5 K/mm3 (1.8-7.8); Neutrophils % 88.6 % (37.0-80.0); Platelet Count 244 K/mm3 (142-424); Red Blood Count 5.23 M/mm3 (4.60-6.20); Red Cell Distribution Width 13.6 % (11.5-17.5)
[2021-05-18 17:49] VITALS: BP 126/75; PULSE 124; RESP 20; O2SAT 94
[2021-05-18 17:50] VITALS: PULSE 117; RESP 20; O2SAT 93
[2021-05-18 17:51] LABS: MANUAL DIFFERENTIAL MANUAL DIFFERENTIAL (MANUAL DIFF)
[2021-05-18 17:53] LABS: Potassium 3.7 mmoL/L (3.5-5.1); Sodium 140 mmol/L (136-145)
[2021-05-18 17:56] LABS: Blood Urea Nitrogen 7 mg/dl (9-20); Calcium 9.3 mg/dl (8.4-10.2); Carbon Dioxide 25 mmol/L (22.0-30.0); Creatinine Clearance Estimated 178 mL/min (50-200); Estimated Glomerular Filt Rate 111 ml/min (>60); GFR (African American) 134 ML/MIN (>60); Glucose 147 mg/dl (74-100); Strep Scrn Group A (Rapid) Negative (Negative)
--- NOTE | 2021-05-18 17:56 | PC.NURSE ---
pt to rad
[2021-05-18 17:58] LABS: Lymphocytes % 13 % (10-50); Monocytes % 7 % (2-9); Neutrophils % 80 % (42-76); Platelet Estimate Normal; RBC Morphology Normal; Total Cells Counted 100
[2021-05-18 18:00] VITALS: BP 139/81; PULSE 111; RESP 27; O2SAT 93
[2021-05-18 18:09] LABS: Lactic Acid 1.9 mmol/L (0.7-2.1)
[2021-05-18 18:11] LABS: Erythrocyte Sedimentation Rate 7 mm/hr (0-15)
[2021-05-18 19:05] VITALS: BP 127/67; PULSE 100; RESP 20; TEMP 38.3; O2SAT 97
[2021-05-18 19:19] LABS: Anion Gap 12.7 mEq/L (5-15); Chloride 106 mmol/L (98-107)
== END 2021-05-18 19:07 | disposition home or self-care (01) ==
PROVIDERS: Emergency Provider Emergency Medicine; PCP Family Medicine
DX: J03.90 Acute tonsillitis, unspecified (principal); F41.8 Other specified anxiety disorders; K21.9 Gastro-esophageal reflux disease without esophagitis
CPT/HCPCS: 71046; 80048; 83605; 85007; 85025; 85651; 87040; 87430; 99282; J2405; U0003

== ENCOUNTER → 2021-05-19 17:15 | Outpatient (CLI) | payer MEDICAID, SELFPAY ==
[2021-05-19 19:12] LABS: Amphetamine/Metha Screen,Urine Negative ng/ml (<1000); Barbiturates Screen,Urine Negative ng/ml (<200)
[2021-05-19 19:13] LABS: Benzodiazepines Screen,Urine Negative ng/ml (<200)
[2021-05-19 19:14] LABS: Cannabinoid Screen,Urine Negative ng/ml (<50); Cocaine Screen,Urine Negative ng/ml (<300)
[2021-05-19 19:15] LABS: Methadone Screen,Urine Negative ng/ml (<300); Opiate Screen,Urine Negative ng/ml (<300)
[2021-05-19 19:16] LABS: Phencyclidine Screen,Urine Negative ng/ml (<25)
== END ==
PROVIDERS: Visit Provider Family Medicine
DX: Z79.899 Other long term (current) drug therapy (principal)
CPT/HCPCS: 80305

== ENCOUNTER 2021-06-04 12:19 | Emergency (ER) | payer MEDICAID, SELFPAY ==
[2021-06-04 12:25] VITALS: BP 156/95; PULSE 104; RESP 18; TEMP 37.2; O2SAT 96; BMI 28.8
[2021-06-04 12:30] VITALS: BP 149/87; PULSE 99; O2SAT 96
[2021-06-04 14:02] LABS: Strep Scrn Group A (Rapid) Positive (Negative)
[2021-06-04 15:13] VITALS: BP 123/74; PULSE 78; RESP 16; TEMP 36.6; O2SAT 98
--- NOTE | 2021-06-04 19:15 | HMH.EDGENADL ---
ED Disposition Clinical Impression: Strep pharyngitis Disposition: Home, Self-Care Condition on Discharge: Good Instructions: Strep Throat Additional Instructions: Your strep swab was positive. Take the cephalexin for this. Take the flonase and claritin to help your ears. Follow up with Ear, Nose [facility] Throat (ENT) as needed. Prescriptions: cephALEXin [Cephalexin 500mg Tab] 500 mg PO BID #20 tab Transmission Status: Received by [facility] Loratadine [Claritin] 10 mg PO DAILY 30 Days #30 tab Transmission Status: Received by [facility] Fluticasone Propionate [Flonase 50mcg nasal spray 16gm] 2 spr NS DAILY 14 Days #1 bottle Transmission Status: Received by [facility] Referrals: Milagro Cohen MD [Consulting Physician] - Julian Guillen MD [Primary Care Provider] - Naseem Ying MD [Staff Physician] - - Critical Care Critical Care Time: No Attestation: On 06/04/21, the high probability of a clinically significant, sudden or life threatening deterioration of the following system(s) required my full and direct attention, intervention and personal management. The time I documented below is in addition to time spent performing reported procedures but includes the following listed in this critical care notation. Medical Decision Making - Medical Records Medical records reviewed: Yes: I reviewed the patient's medical records. - Sukhdeep Inquiry Pt receiving controlled substance: No Vital Signs: 06/04/21 12:25 06/04/21 12:30 06/04/21 15:13 Temperature 98.9 F 98 F Temperature Source Oral Oral Pulse Rate 99 H 78 Pulse Rate [Left Radial] 104 H Respiratory Rate 18 16 Blood Pressure 149/87 H 123/74 Blood Pressure [Right Arm] 156/95 H Blood Pressure Mean 114 Blood Pressure Mean [Right Arm] 115 Blood Pressure Source [Right Arm] Automatic Cuff Blood Pressure Position Sitting Blood Pressure Position [Right Arm] Sitting 02 Sat by Pulse Oximetry 96 96 Oxygen Delivery Method Room Air Room Air - Lab Data Lab Results 06/04/21 13:30: Group A Strep Rapid Positive A Orders (Tests/Meds): ED MEDICATIONS Discontinued Medications Generic Name Dose Route Start Last Admin Trade Name Freq PRN Reason Stop Dose Admin Ibuprofen 600 mg 06/04/21 12:42 06/04/21 12:47 Ibuprofen 600 Mg Tablet PO 06/04/21 12:43 600 mg ONCE ONE Administration ORDERS Category Date Time Status Covid-19 Nasal PCR ([facility]) Routine Lab 06/04/21 13:40 Received Medical Decision Narrative: The patient is a 35 year old male who presents to the ED with throat pain, body aches, and decreased hearing. The patient is awake, alert, hemodynamically stable. His oropharynx is erythematous. He has decreased but intact hearing bilaterally, TMs with serous effusions bilaterally. Decreased hearing is likely due to this. He is strep +. Will treat strep throat (with keflex - penicillin allergic). Will prescribe flonase and claritin for his hearing loss and give ENT follow up. Patient in agreement with plan. General Adult HPI - General Chief complaint: Ear Stated complaint: Cant hear, both ears Time Seen by Provider: 06/04/21 12:40 Mode of Arrival: Ambulatory Limitations: No Limitations Description of Symptoms (Recalled from ER Triage Doc. by RN): c/o loss of hearing after awaking this am. Denies any drainage or being exposed to loud excessive loud noises. - History of Present Illness HPI narrative: The patient is a 35 year old male who presents to the ED with decreased hearing, sore throat, and myalgias. The patient states for the past few days he has had body aches and sore throat. Denies fevers. Today he woke up and he had bilateral decreased hearing. No ear pain. No headache, vision changes. No chest pain, shortness of breath. No sick contacts. - Related Data Previous Rx's Medication Instructions Recorded cariprazine 3 mg capsule 3 mg PO DAILY #30 cap 05/05/21 benzonatate 100 mg
== END 2021-06-04 15:14 | disposition home or self-care (01) ==
PROVIDERS: Emergency Provider Emergency Medicine; PCP Family Medicine
DX: J02.0 Streptococcal pharyngitis (principal); F41.8 Other specified anxiety disorders; K21.9 Gastro-esophageal reflux disease without esophagitis; F17.210 Nicotine dependence, cigarettes, uncomplicated
CPT/HCPCS: 87430; 99282; U0003

== ENCOUNTER 2021-06-26 00:55 | Emergency (ER) | payer MEDICAID, SELFPAY ==
[2021-06-26 00:43] VITALS: BP 138/91; PULSE 74; RESP 15; TEMP 36.8; O2SAT 96; BMI 30.7
--- NOTE | 2021-06-26 00:47 | ECG_ITS ---
APPROVED REPORT Exam: Resting ECG HR:102 bpm ECG Measurements Heart Rate 102 AXES WA 146 P 65 QRSd 92 QRS 68 QT 350 T 76 QTc 456 Conclusion Sinus tachycardia Otherwise normal ECG Electronically signed by : Shukri Huff MD 06/27/2021 11:39:05
--- NOTE | 2021-06-26 01:03 | PC.NURSE ---
During assessment, pt was difficult to keep awake. Gave 2mg IVP
--- NOTE | 2021-06-26 01:18 | HMH.EDOD ---
ED Disposition Clinical Impression: Poisoning by opiate or related narcotic Overdose Qualifiers: Encounter type: initial encounter Injury intent: accidental or unintentional Qualified Code(s): T50.901A - Poisoning by unspecified drugs, medicaments and biological substances, accidental (unintentional), initial encounter Disposition: Left Against Medical Advice Condition on Discharge: Fair Instructions: DI for Drug Overdose in Adults Additional Instructions: see pcp for fabian patino Referrals: Julian Guillen MD [Primary Care Provider] - - Critical Care Critical Care Time: No Attestation: On 06/26/21, the high probability of a clinically significant, sudden or life threatening deterioration of the following system(s) required my full and direct attention, intervention and personal management. The time I documented below is in addition to time spent performing reported procedures but includes the following listed in this critical care notation. Medical Decision Making - Medical Records Medical records reviewed: Yes: I reviewed the patient's medical records. - Sukhdeep Inquiry Pt receiving controlled substance: No Vital Signs: 06/26/21 00:43 06/26/21 01:21 Temperature 98.2 F 98.2 F Temperature Source Oral Oral Pulse Rate 80 Pulse Rate [Right] 74 Respiratory Rate 15 18 Blood Pressure 145/79 H Blood Pressure [Right Arm] 138/91 H Blood Pressure Mean [Right Arm] 106 Blood Pressure Source Automatic Cuff Blood Pressure Source [Right Arm] Automatic Cuff Blood Pressure Position Sitting 02 Sat by Pulse Oximetry 96 Oxygen Delivery Method Room Air Room Air - Lab Data Lab results reviewed: Yes: I reviewed the patient's lab results. Orders (Tests/Meds): ED MEDICATIONS Discontinued Medications Generic Name Dose Route Start Last Admin Trade Name Ravi PRN Reason Stop Dose Admin Naloxone HCl 2 mg 06/26/21 01:02 06/26/21 00:55 Naloxone 2mg/2ml Syringe IV 06/26/21 01:03 2 mg ONCE ONE Administration - ECG Data Tracing #1 Normal Sinus Rhythm: Yes Ischemic changes: non-specific ST-T wave changes Overdose HPI - General Chief Complaint: Overdose Stated Complaint: od on heroin Time Seen by Provider: 06/26/21 01:00 Mode of Arrival: EMS Source of Information: Patient, EMS, Medical Record Limitations: No Limitations Description of Symptoms (Recalled from ER Triage Doc. by RN): Pt reports to snorting fentanyl this evening and then blacked out I guess . Per EMS, pt's mother found him unresponsive and gave 4mg intranasal, PD arrived and gave an addional 4 mg intrasnasal. EMS arrived and gave 1mg IVP, pt began to wake up. On arrival, pt ia oriented x3 and drowsy. He denies any pain or difficulty breathing. He denies SI. - History of Present Illness HPI Narrative: pt with opiate use and had narcan per police and ems MD complaint: accidental overdose Onset (ago): hour(s) Timing confirmed by: family member Context: Accidental Overdose: wanted to get high Treatments Prior to Arrival: narcan - Related Data Previous Rx's Medication Instructions Recorded cariprazine 3 mg capsule 3 mg PO DAILY #30 cap 05/05/21 benzonatate 100 mg capsule 100 mg PO BID PRN #60 cap 05/30/21 gabapentin 300 mg capsule 300 mg PO BID PRN #60 cap 05/30/21 quetiapine 100 mg tablet 100 mg PO DAILY #30 tab 05/30/21 Fluticasone Propionate [Flonase 2 spr NS DAILY 14 Days #1 bottle 06/04/21 50mcg nasal spray 16gm] Loratadine [Claritin] 10 mg PO DAILY 30 Days #30 tab 06/04/21 cephALEXin [Cephalexin 500mg Tab] 500 mg PO BID #20 tab 06/04/21 Allergies Allergy/AdvReac Type Severity Reaction Status Date / Time erythromycin base Allergy Verified 05/30/21 09:50 Penicillins Allergy Verified 05/30/21 09:50 [facility] History - Hepatitis A Screen Drug use history?: Yes High risk sexual behaviors?: No History of sexually transmitted infection?: No Currently employed?: No Childcare worker?: No Do you have indoo
[2021-06-26 01:21] VITALS: BP 145/79; PULSE 80; RESP 18; TEMP 36.8; O2SAT 98
== END 2021-06-26 01:27 | disposition left against medical advice (07) ==
LOC: ER 00:59
PROVIDERS: Emergency Provider Emergency Medicine; PCP Family Medicine
DX: T40.1X1A Poisoning by heroin, accidental (unintentional), initial encounter (principal); R55 Syncope and collapse; Y92.019 Unspecified place in single-family (private) house as the place of occurrence of the external cause; F41.8 Other specified anxiety disorders; K21.9 Gastro-esophageal reflux disease without esophagitis; F17.210 Nicotine dependence, cigarettes, uncomplicated; Z88.0 Allergy status to penicillin
CPT/HCPCS: 93005; 96374; 99281; J2310

== ENCOUNTER → 2021-08-07 17:10 | Outpatient (CLI) | payer MEDICAID, SELFPAY | PROVIDERS: Visit Provider Physician Assistant | DX: Z20.822 Contact with and (suspected) exposure to COVID-19 (principal); R05 Cough | CPT/HCPCS: C9803; U0003; U0005 ==

== ENCOUNTER → 2021-08-20 19:41 | Outpatient (CLI) | payer MEDICAID, SELFPAY | PROVIDERS: Visit Provider Nurse Practitioner Family | DX: Z20.822 Contact with and (suspected) exposure to COVID-19 (principal) | CPT/HCPCS: C9803; U0003; U0005 ==

== ENCOUNTER 2021-10-31 11:21 | Emergency (ER) | payer MEDICAID, SELFPAY ==
[2021-10-31 11:30] VITALS: BP 149/85; PULSE 96; RESP 18; TEMP 37.1; O2SAT 97; BMI 34.2
--- NOTE | 2021-10-31 12:50 | HMH.EDUTC ---
[facility] [place] Clinical Impression: Colitis Disposition: Home, Self-Care Condition on Discharge: Good Instructions: DI for Colitis Additional Instructions: Drink plenty of fluids. Take tylenol or ibuprofen for pain or fever. Take the medications as directed. Follow up with your regular doctor. GO TO THE ER FOR ANY WORSENING SYMPTOMS Prescriptions: Ondansetron [Zofran 4mg ODT] 4 mg PO Q8HP PRN #20 tab PRN Reason: Nausea Transmission Status: Received by [facility] Ciprofloxacin HCl [Cipro 500mg Tab] 500 mg PO BID 10 Days #20 tab Transmission Status: Received by [facility] methylPREDNISolone [Medrol] 4 mg PO DIRECTED 6 Days #21 packet Transmission Status: Received by [facility] Pramoxine HCl [Proctofoam] 1 applicatio TP TID 10 Days #15 gm Transmission Status: Received by [facility] Referrals: Julian Guillen MD [Primary Care Provider] - Forms: Work/School Release Time of Disposition: 14:16 Medical Decision Making - Medical Records Medical records reviewed: No: I reviewed the patient's medical records. - Sukhdeep Inquiry Pt receiving controlled substance: No Vital Signs: 10/31/21 11:30 10/31/21 14:23 Temperature 98.8 F 98.8 F Temperature Source Oral Pulse Rate 96 H Pulse Rate [Right Brachial] 96 H Respiratory Rate 18 18 Blood Pressure 149/85 H Blood Pressure [Right Arm] 149/85 H Blood Pressure Mean [Right Arm] 106 Blood Pressure Source [Right Arm] Automatic Cuff Blood Pressure Position [Right Arm] Sitting 02 Sat by Pulse Oximetry 97 Oxygen Delivery Method Room Air - Lab Data Lab Results 10/31/21 13:00: Stool Occult Blood Positive A 10/31/21 13:05: WBC 15.0 H, RBC 5.14, Hgb 17.0, Hct 48.4, MCV 94.0, MCH 33.0 H, MCHC 35.2, RDW 12.8, Plt Count 242, MPV 7.8, Neut % (Auto) 60.8, Lymph % (Auto) 24.6, [place] % (Auto) 5.2, Eos % (Auto) 8.5, Baso % (Auto) 0.9, Neut # (Auto) 9.1 H, Lymph # (Auto) 3.7, [place] # (Auto) 0.8, Eos # (Auto) 1.3 H, Baso # (Auto) 0.1, Total Counted 100, Neutrophils % (Manual) 59, Lymphocytes % (Manual) 24, Monocytes % (Manual) 5, Eosinophils % (Manual) 12 H, Platelet Estimate Normal, RBC Morphology Normal 10/31/21 13:05: PT 10.0 L, INR 0.88 L, APTT 26.8 10/31/21 13:05: Sodium 138, Potassium 4.1, Chloride 100, Carbon Dioxide 31 H, Anion Gap 11.1, BUN 5 L, Creatinine 0.80, Estimated Creat Clear 203, Estimated GFR 110, Est GFR ( Amer) 133, Glucose 105 H, Calcium 9.0, Total Bilirubin 0.8, AST 52, ALT 65, Alkaline Phosphatase 77, Total Protein 7.5, Albumin 4.3, Globulin 3.2, Albumin/Globulin Ratio 1.3 Result diagrams: 10/31/21 13:05 10/31/21 13:05 [facility] [place] - General Stated complaint: bleeding in back of groin area since 1205 Time Seen by Provider: 10/31/21 12:00 Mode of Arrival: Ambulatory Source of Information: Patient Limitations: No Limitations Description of Symptoms (Recalled from Triage Doc. by RN): PATIENT C/O BLEEDING FROM RECTUM X 5 DAYS. REPORTS BLEEDING IS MAINLY WITH BOWEL MOVEMENT AND BLOOD IS BOTH BRIGHT AND DARK RED. REPORTS HE DID PASS A CLOT A FEW DAYS AGO. HEENT Symptoms (Recalled from RN notes): No Resp Symptoms (Recalled from RN notes): No Skin Symptoms (Recalled from RN notes): No MS Symptoms (Recalled from RN notes): No Functional Status (Recalled from RN notes): WNL - History of Present Illness Provider Complaint: He state that he has been having bright red bleeding from his rectum off and on for the past 1 week approx. He has a history of hemorrhoids and he thinks that is what is causing it. He denies abdominal pain. He denies any history of ulcerative colitis or Crohn's disease. - Related Data Previous Rx's Medication Instructions Recorded cariprazine 3 mg capsule 3 mg PO DAILY #30 cap 05/05/21 Fluticasone Propionate [Flonase 2 spr NS DAILY 14 Days #1 bottle 06/04/21 50mcg nasal spray 16gm] promethazine 12.5 mg tablet 12.5 mg PO Q6H PRN 3 Days #12 tab 08/20/21 buspirone 15 mg
[2021-10-31 13:30] LABS: Activated Partial Thrombo Time 26.8 seconds (22.8-30.6); INR 0.88 (0.9-1.1)
[2021-10-31 13:31] LABS: Chloride 100 mmol/L (98-107); Sodium 138 mmol/L (136-145)
[2021-10-31 13:32] LABS: Potassium 4.1 mmoL/L (3.5-5.1)
[2021-10-31 13:34] LABS: Alanine Aminotransferase 65 U/L (12-78); Albumin Level 4.3 g/dl (3.5-5.0); Albumin/Globulin Ratio 1.3 (1.1-1.8); Alkaline Phosphatase 77 U/L (38-126); Anion Gap 11.1 mEq/L (5-15); Aspartate Amino Transferase 52 U/L (17-59); Bilirubin,Total 0.8 mg/dl (0.2-1.3); Blood Urea Nitrogen 5 mg/dl (9-20); Carbon Dioxide 31 mmol/L (22.0-30.0); Creatinine Clearance Estimated 203 mL/min (50-200); Estimated Glomerular Filt Rate 110 ml/min (>60); GFR (African American) 133 ML/MIN (>60); Globulin 3.2 g/dL (1.3-3.2); Glucose 105 mg/dl (74-100); Total Protein,Serum 7.5 g/dl (6.3-8.2)
[2021-10-31 13:38] LABS: Basophils # 0.1 K/mm3 (0-0.2); Basophils % 0.9 % (0.1-2.0); Eosinophils # 1.3 K/mm3 (0.0-0.4); Eosinophils % 8.5 % (0.1-12.0); Hematocrit 48.4 % (42.0-52.0); Lymphocytes # 3.7 K/mm3 (0.7-4.5); Lymphocytes % 24.6 % (10-50); Mean Corpuscular HGB Conc 35.2 g/dL (31.8-35.4); Mean Platelet Volume 7.8 fl (7.4-10.4); Monocytes # 0.8 K/mm3 (0.1-1.0); Monocytes % 5.2 % (1.7-9.3); Neutrophils # 9.1 K/mm3 (1.8-7.8); Neutrophils % 60.8 % (37.0-80.0); Platelet Count 242 K/mm3 (142-424); Red Blood Count 5.14 M/mm3 (4.60-6.20); Red Cell Distribution Width 12.8 % (11.5-17.5)
[2021-10-31 13:39] LABS: MANUAL DIFFERENTIAL MANUAL DIFFERENTIAL (MANUAL DIFF)
[2021-10-31 14:03] LABS: Eosinophils % 12 % (0-3); Lymphocytes % 24 % (10-50); Monocytes % 5 % (2-9); Neutrophils % 59 % (42-76); Total Cells Counted 100
[2021-10-31 14:04] LABS: Platelet Estimate Normal; RBC Morphology Normal
[2021-10-31 14:23] VITALS: BP 149/85; PULSE 96; RESP 18; TEMP 37.1; O2SAT 97
[2021-10-31 14:43] LABS: Occult Blood,Stool Positive (Negative)
== END 2021-10-31 14:26 | disposition home or self-care (01) ==
PROVIDERS: Emergency Provider Nurse Practitioner Family; PCP Family Medicine
DX: K52.9 Noninfective gastroenteritis and colitis, unspecified (principal); F41.8 Other specified anxiety disorders; K21.9 Gastro-esophageal reflux disease without esophagitis; Z79.899 Other long term (current) drug therapy
CPT/HCPCS: 36415; 80053; 82272; 85007; 85025; 85610; 85730; 99203; G0328; G0463

== ENCOUNTER → 2021-11-04 14:35 | Outpatient (CLI) | payer MEDICAID, SELFPAY ==
--- NOTE | 2021-11-04 14:35 | MR_ITS ---
PROCEDURE: MR LUMBAR SPINE WO CON CLINICAL INDICATION: cauda equina syndrome COMPARISON: No exams were available for comparison TECHNIQUE: Standard multiplanar multiecho sequences are performed without contrast. 3-D MIP and myelographic images are also rendered and reviewed FINDINGS: There is normal alignment. The spinal cord ends at the L1 level. The spinal cord and cauda equina have an unremarkable appearance. No obvious intra or extradural mass. L1-L2: Mild facet and ligamentum hypertrophy. L2-L3: Mild facet and ligamentum hypertrophic change L3-L4: Mild facet and ligamentum hypertrophy with mild bilateral foraminal narrowing. L4-5: Mild facet and ligamentum hypertrophy with mild bilateral foraminal narrowing. L5-S1: Unremarkable. No extruded herniated disc or bony canal stenosis. No fracture or dislocation. IMPRESSION: Mild multilevel facet ligamentum hypertrophy. Please see above for detailed description. The lower spinal cord and cauda equina have an unremarkable appearance. Dictated by: Kong Gonzalez MD 11/05/2021 11:48 Kong Gonzalez MD in [place] 11/05/2021 11:48
== END ==
PROVIDERS: PCP Family Medicine; Visit Provider Family Medicine
DX: G83.4 Cauda equina syndrome (principal)
CPT/HCPCS: 72148; 76376

== ENCOUNTER → 2021-11-12 11:00 | Outpatient (CLI) | payer MEDICAID, SELFPAY ==
--- NOTE | 2021-11-12 11:02 | CT_ITS ---
PROCEDURE: CT ABDOMEN PELVIS WO CON CLINICAL INDICATION: RLQ pain COMPARISON: CR XR PELVIS 1-2V from 01/12/2021 TECHNIQUE: Axial images obtained with sagittal and coronal reformats. All CT scans at the facility use one or more dose reduction, viz: automated exposure control, ma/kV adjustment per patient size (including targeted exams where dose is matched to indication, i.e. head), or iterative reconstruction technique. FINDINGS: LOWER THORAX: Minimal atelectatic change or scarring within the lingula anteriorly. ABDOMEN & PELVIS: Fatty liver. Hepatosplenomegaly. The spleen measures 15 cm in AP dimension and the liver measures 30 cm in maximum transverse dimension. There has been a prior cholecystectomy. A well-circumscribed rounded calcific density is present in the subhepatic region medially measuring 11 mm. This is adjacent to the hepatic flexure of the colon and could represent either and escaped gallstone from the cholecystectomy or contrast within a diverticulum. The pancreas, adrenal glands, and kidneys have an unremarkable appearance. No renal or ureteral calculi. No intestinal obstruction or free air. No evidence of appendicitis. No evidence of diverticulitis. No pelvic mass or abnormal fluid collection. No acute bony findings. IMPRESSION: Hepatosplenomegaly with hepatic steatosis. No no evidence of appendicitis or obstructing ureteral calculus.. A well-circumscribed rounded calcific density is present in the subhepatic region medially measuring 11 mm. This is adjacent to the hepatic flexure of the colon and could represent either and escaped gallstone from the cholecystectomy or contrast within a diverticulum. No surrounding inflammatory change. Dictated by: Kong Gonzalez MD 11/13/2021 09:33 Kong Gonzalez MD in [facility] 11/13/2021 09:33
== END ==
PROVIDERS: PCP Family Medicine; Visit Provider Family Medicine
DX: R10.31 Right lower quadrant pain (principal)
CPT/HCPCS: 74176

== ENCOUNTER → 2022-01-02 13:48 | Outpatient (CLI) | payer MEDICAID, SELFPAY | PROVIDERS: PCP Family Medicine; Visit Provider Nurse Practitioner | DX: Z20.822 Contact with and (suspected) exposure to COVID-19 (principal) | CPT/HCPCS: C9803; U0003; U0005 ==

== ENCOUNTER → 2022-07-25 13:58 | Outpatient (CLI) | payer MEDICAID, SELFPAY | PROVIDERS: PCP Family Medicine; Visit Provider Emergency Medicine | DX: U07.1 COVID-19 (principal) | CPT/HCPCS: C9803; U0003; U0005 ==

== ENCOUNTER → 2022-09-03 09:48 | Outpatient (CLI) | payer MEDICAID, SELFPAY | PROVIDERS: PCP Emergency Medicine; Visit Provider Emergency Medicine | DX: Z20.822 Contact with and (suspected) exposure to COVID-19 (principal) | CPT/HCPCS: C9803; U0003; U0005 ==

== ENCOUNTER → 2022-10-20 12:37 | Outpatient (CLI) | payer BC, SELFPAY ==
--- NOTE | 2022-10-20 12:46 | XR_ITS ---
FINAL REPORT CLINICAL HISTORY: bilateral foot pain FINDINGS: 3 weight-bearing views of the right foot were obtained. There is no acute fracture or dislocation. The joint spaces are intact. The soft tissues are unremarkable. IMPRESSION: No acute process. Reviewed, Interpreted and Dictated by Elvis Ladd MD Transcribed by Michele Hayden Authenticated and [facility]
--- NOTE | 2022-10-20 12:46 | XR_ITS ---
FINAL REPORT CLINICAL HISTORY: bilateral foot pain FINDINGS: 3 weight-bearing views of the left foot were obtained. There is no acute fracture or dislocation. The joint spaces are intact. The soft tissues are unremarkable. IMPRESSION: No acute process. Reviewed, Interpreted and Dictated by Elvis Ladd MD Transcribed by Michele Hayden Authenticated and [facility]
== END ==
PROVIDERS: PCP Family Medicine; Visit Provider Podiatrist
DX: M79.671 Pain in right foot (principal); M79.672 Pain in left foot
CPT/HCPCS: 73630

== ENCOUNTER 2022-10-20 14:08 | Outpatient (RCR) | payer BC, SELFPAY | END 2022-10-20 15:00 | disposition home or self-care (01) | LOC: PT 14:08 | PROVIDERS: Visit Provider Podiatrist | DX: M77.51 Other enthesopathy of right foot and ankle (principal); M77.41 Metatarsalgia, right foot; M79.671 Pain in right foot | CPT/HCPCS: 97760 ==

== ENCOUNTER 2023-04-22 19:46 | Emergency (ER) | payer BC, SELFPAY ==
[2023-04-22 19:47] VITALS: BP 133/92; PULSE 102; RESP 19; TEMP 37.6; O2SAT 96; BMI 39.0
--- NOTE | 2023-04-22 19:55 | XR_ITS ---
PROCEDURE INFORMATION: Exam: XR Chest Exam date and time: 04/22/2023 8:10 PM Age: 37 years old Clinical indication: Cough and fever; Smoker's cough; Additional info: Fever, cough TECHNIQUE: Imaging protocol: Radiologic exam of the chest. Views: 2 views. COMPARISON: CR XR CHEST 2V 05/18/2021 5:47 PM FINDINGS: Lungs: Unremarkable. No consolidation. Pleural spaces: Unremarkable. No pleural effusion. No pneumothorax. Heart/Mediastinum: Unremarkable. No cardiomegaly. Bones/joints: Unremarkable. IMPRESSION: No acute findings.
[2023-04-22 20:15] LABS: Strep Scrn Group A (Rapid) Negative (Negative)
[2023-04-22 20:30] VITALS: BP 143/87; PULSE 107; O2SAT 92
[2023-04-22 21:00] VITALS: BP 142/87; PULSE 95; O2SAT 95
--- NOTE | 2023-04-22 21:07 | PC.NURSE ---
Attending notified of all results back on patient.
--- NOTE | 2023-04-22 21:07 | PC.NURSE ---
Rounded on patient. He is sitting with family member at bedside. No concerns or requests currently
[2023-04-22 21:09] VITALS: BP 142/87; PULSE 90; RESP 18; TEMP 37.5; O2SAT 96
--- NOTE | 2023-04-22 21:10 | HMH.EDURI ---
Discharge Plan Disposition Patient Disposition: Home, Self-Care Prescriptions Prescriptions: New cefdinir [cefdinir] 300 mg capsule 300 mg PO BID Qty: 14 0RF No Action pantoprazole [Protonix] 40 mg tablet,delayed release (DR/EC) 40 mg PO DAILY Qty: 90 3RF sildenafil 100 mg tablet 100 mg PO DAILY PRN (Reason: sexual activity) Qty: 7 12RF Rx Instructions: administer 30 minutes to 4 hours before activity quetiapine [Seroquel] 200 mg tablet 200 mg PO DAILY Qty: 30 10RF Vraylar 3 mg capsule 3 mg PO DAILY Qty: 30 5RF buprenorphine-naloxone 8-2 mg tablet, sublingual 1 tab SUBLINGUAL DAILY buspirone 15 mg tablet See Rx Instructions .ROUTE .COMPLEX Qty: 60 10RF Dose Instruction: TAKE ONE TABLET BY MOUTH TWICE A DAY NEEDED FOR ANXIETY *MAY CAUSE DROWSINESS* Rx Instructions: TAKE ONE TABLET BY MOUTH TWICE A DAY NEEDED FOR ANXIETY *MAY CAUSE DROWSINESS* escitalopram oxalate [Lexapro] 10 mg tablet 10 mg PO DAILY Qty: 90 3RF etodolac 500 mg tablet 500 mg PO BID 30 Days Qty: 60 2RF gabapentin 400 mg capsule 400 mg PO TID Qty: 90 0RF pramoxine 15 GM foam 1 applicatio TP TID 10 Days Qty: 15 0RF Referrals Follow up/Referrals: Julian Guillen MD [Primary Care Provider] - See instructions Clinical Impressions Clinical Impression: Pharyngitis Stand Alone Forms Stand Alone Forms: Work/School Release Discharge ED Provider: Aniyah (ED)Cedrick URI/Sore Throat HPI General Chief Complaint: Upper Respiratory Infection Stated Complaint: coughing up blood Time Seen by Provider: 04/22/23 21:10 Mode of Arrival: Ambulatory Source of Information: Patient and Medical Record Limitations: No Limitations Description of Symptoms (Recalled from ER Triage Doc. by RN): 37 M presents from work after being unable to tolerate his sore throat. 2 days ago it began and has become worse. He reports it feels raw and when he spit earlier, there was blood in his sputum. NAD History of Present Illness HPI Narrative: pt with sore throat over the last 2 days with painful swallowing - no fever or rash and no diabetes Complaint: sore throat Onset (ago): day(s) Duration: constant Severity: moderate Able to tolerate fluids by mouth: Yes Associated symptoms: cough Treatments prior to arrival: acetaminophen Related Data Home Medications Medication Instructions Recorded Confirmed buprenorphine 8 mg-naloxone 2 mg 1 tab sublingual DAILY 02/17/22 02/12/23 sublingual tablet Previous Rx's Medication Instructions Recorded cariprazine 3 mg capsule (Vraylar) 3 mg PO DAILY #30 caps 05/05/21 pantoprazole 40 mg tablet,delayed 40 mg PO DAILY #90 tabs 09/02/21 release (Protonix) sildenafil 100 mg tablet 100 mg PO DAILY PRN sexual 09/02/21 activity #7 tabs pramoxine 1 % topical foam 1 applicatio topical TID 10 days 10/31/21 #15 grams buspirone 15 mg tablet See Rx Instructions .Route 09/11/22 .COMPLEX #60 tabs escitalopram oxalate 10 mg tablet 10 mg PO DAILY #90 tabs 09/11/22 (Lexapro) etodolac 500 mg tablet 500 mg PO BID 30 days #60 tabs 11/10/22 quetiapine 200 mg tablet (Seroquel) 200 mg PO DAILY #30 tabs 12/08/22 gabapentin 400 mg capsule 400 mg PO TID #90 caps 03/11/23 cefdinir 300 mg capsule 300 mg PO BID #14 caps 04/22/23 Allergies Allergy/AdvReac Type Severity Reaction Status Date / Time erythromycin base Allergy Verified 02/12/23 14:50 Penicillins Allergy Verified 02/12/23 14:50 PFS PFS Disclaimer: The information contained in this section may have been updated after the patient was seen, as this information can be updated by other users. Social History Smoking Status: Current every day smoker tobacco type: cigarettes packs per day: 1 second hand exposure: No alcohol intake: never substance use type: former substance user current occupational status: other Travel in the
[2023-04-22 21:29] LABS: Basophils # 0.1 K/mm3 (0-0.2); Basophils % 0.5 % (0.1-2.0); Eosinophils # 0.3 K/mm3 (0.0-0.4); Hemoglobin 16.6 g/dL (14.1-18.0); Lymphocytes % 17.1 % (10-50); Mean Corpuscular HGB Conc 33.1 g/dL (31.8-35.4); Mean Corpuscular Hemoglobin 31.9 pg (27.0-31.2); Mean Corpuscular Volume 96.2 fl (80-94); Mean Platelet Volume 8.5 fl (7.4-10.4); Monocytes % 5.5 % (1.7-9.3); Neutrophils # 13.1 K/mm3 (1.8-7.8); Neutrophils % 74.9 % (37.0-80.0); Platelet Count 235 K/mm3 (142-424); Red Cell Distribution Width 13.1 % (11.5-17.5); White Blood Count 17.5 K/mm3 (4.8-10.8)
[2023-04-22 21:30] VITALS: BP 130/86; PULSE 106; O2SAT 93
[2023-04-22 21:32] LABS: MANUAL DIFFERENTIAL MANUAL DIFFERENTIAL (MANUAL DIFF); Potassium 3.9 mmoL/L (3.5-5.1); Sodium 138 mmol/L (136-145)
[2023-04-22 21:33] LABS: Chloride 98 mmol/L (98-107)
[2023-04-22 21:34] LABS: Alanine Aminotransferase 99 U/L (12-78); Aspartate Amino Transferase 58 U/L (17-59); Blood Urea Nitrogen 9 mg/dl (9-20); Creatinine Clearance Estimated 229 mL/min (50-200); Estimated Glomerular Filt Rate 109 ml/min (>60); GFR (African American) 132 ML/MIN (>60)
[2023-04-22 21:35] LABS: Albumin Level 4.4 g/dl (3.5-5.0); Albumin/Globulin Ratio 1.2 (1.1-1.8); Alkaline Phosphatase 85 U/L (38-126); Anion Gap 11.9 mEq/L (5-15); Bilirubin,Total 1.4 mg/dl (0.2-1.3); Calcium 9.2 mg/dl (8.4-10.2); Carbon Dioxide 32 mmol/L (22.0-30.0); Globulin 3.7 g/dL (1.3-3.2); Glucose 103 mg/dl (74-100); Total Protein,Serum 8.1 g/dl (6.3-8.2)
--- NOTE | 2023-04-22 22:04 | PC.NURSE ---
Pt provided with eneida
--- NOTE | 2023-04-22 22:09 | PC.NURSE ---
Dr. Dill at BS to update pt
[2023-04-22 23:15] LABS: Eosinophils % 1 % (0-3); Lymphocytes % 26 % (10-50); Monocytes % 3 % (2-9); Neutrophils % 70 % (42-76); Platelet Estimate Normal; RBC Morphology Normal; Total Cells Counted 100
== END 2023-04-22 22:37 | disposition home or self-care (01) ==
PROVIDERS: Emergency Provider Emergency Medicine; PCP Family Medicine
DX: J02.9 Acute pharyngitis, unspecified (principal); R05.9 Cough, unspecified; F17.210 Nicotine dependence, cigarettes, uncomplicated; R65.10 Systemic inflammatory response syndrome (SIRS) of non-infectious origin without acute organ dysfunction
CPT/HCPCS: 71046; 80053; 85007; 85025; 87430; 96361; 96365; 96375; 99284; 99285; J0696

== ENCOUNTER 2023-06-15 10:08 | Emergency (ER) | payer SELFPAY ==
[2023-06-15 10:09] VITALS: BP 137/86; PULSE 94; RESP 18; TEMP 36.7; O2SAT 96; BMI 39.4
--- NOTE | 2023-06-15 10:21 | EXP.UTC ---
Discharge Plan Disposition Patient Disposition: Home, Self-Care Condition: Good Prescriptions Prescriptions: New benzonatate [benzonatate] 100 mg capsule 100 mg PO TIDP PRN (Reason: Cough) Qty: 30 0RF methylprednisolone 4 mg Tablets,Dose Pack 4 mg PO DIRECTED Qty: 21 0RF cefdinir 300 mg capsule 300 mg PO BID Qty: 20 0RF No Action pantoprazole [Protonix] 40 mg tablet,delayed release (DR/EC) 40 mg PO DAILY Qty: 90 3RF sildenafil 100 mg tablet 100 mg PO DAILY PRN (Reason: sexual activity) Qty: 7 12RF Rx Instructions: administer 30 minutes to 4 hours before activity quetiapine [Seroquel] 200 mg tablet 200 mg PO DAILY Qty: 30 10RF Vraylar 3 mg capsule 3 mg PO DAILY Qty: 30 5RF buprenorphine-naloxone 8-2 mg tablet, sublingual 1 tab SUBLINGUAL DAILY buspirone 15 mg tablet See Rx Instructions .ROUTE .COMPLEX Qty: 60 10RF Dose Instruction: TAKE ONE TABLET BY MOUTH TWICE A DAY NEEDED FOR ANXIETY *MAY CAUSE DROWSINESS* Rx Instructions: TAKE ONE TABLET BY MOUTH TWICE A DAY NEEDED FOR ANXIETY *MAY CAUSE DROWSINESS* escitalopram oxalate [Lexapro] 10 mg tablet 10 mg PO DAILY Qty: 90 3RF etodolac 500 mg tablet 500 mg PO BID 30 Days Qty: 60 2RF gabapentin 400 mg capsule 400 mg PO TID Qty: 90 0RF pramoxine 15 GM foam 1 applicatio TP TID 10 Days Qty: 15 0RF cefdinir [cefdinir] 300 mg capsule 300 mg PO BID Qty: 14 0RF Referrals Follow up/Referrals: Provider,Referral, MD [Primary Care Provider] - See instructions Activity Restrictions/Add. Instructions Additional Instructions/Restrictions: Drink plenty of fluids. Take tylenol or ibuprofen for pain or fever. Take the medications as directed. Follow up with your regular doctor. GO TO THE ER FOR ANY WORSENING SYMPTOMS Clinical Impressions Clinical Impression: Bronchitis, Sinusitis Stand Alone Forms Stand Alone Forms: Work/School Release Instructions Patient Instructions: Sinusitis, DI for Sinusitis Discharge ED Provider: Scott Singh [facility] General Stated complaint: chest congestion, cough Time Seen by Provider: 06/15/23 10:21 History of Present Illness Provider Complaint: He states that for the past 2 days he has had worsening cough and sinus congestion. Related Data Home Medications Medication Instructions Recorded Confirmed buprenorphine 8 mg-naloxone 2 mg 1 tab sublingual DAILY 02/17/22 02/12/23 sublingual tablet Previous Rx's Medication Instructions Recorded cariprazine 3 mg capsule (Vraylar) 3 mg PO DAILY #30 caps 05/05/21 pantoprazole 40 mg tablet,delayed 40 mg PO DAILY #90 tabs 09/02/21 release (Protonix) sildenafil 100 mg tablet 100 mg PO DAILY PRN sexual 09/02/21 activity #7 tabs pramoxine 1 % topical foam 1 applicatio topical TID 10 days 10/31/21 #15 grams buspirone 15 mg tablet See Rx Instructions .Route 09/11/22 .COMPLEX #60 tabs escitalopram oxalate 10 mg tablet 10 mg PO DAILY #90 tabs 09/11/22 (Lexapro) etodolac 500 mg tablet 500 mg PO BID 30 days #60 tabs 11/10/22 quetiapine 200 mg tablet (Seroquel) 200 mg PO DAILY #30 tabs 12/08/22 gabapentin 400 mg capsule 400 mg PO TID #90 caps 03/11/23 cefdinir 300 mg capsule 300 mg PO BID #14 caps 04/22/23 benzonatate 100 mg capsule 100 mg PO TIDP PRN Cough #30 caps 06/15/23 cefdinir 300 mg capsule 300 mg PO BID #20 caps 06/15/23 methylprednisolone 4 mg tablets in 4 mg PO DIRECTED #21 tabs 06/15/23 a dose pack Allergies Allergy/AdvReac Type Severity Reaction Status Date / Time erythromycin base Allergy Verified 02/12/23 14:50 Penicillins Allergy Verified 02/12/23 14:50 [facility] Disclaimer: The information contained in this section may have been updated after the patient was seen, as this information can be updated by other users. Social History Smoking Status: Current every day smoker tobacco
[2023-06-15 10:48] VITALS: BP 137/86; PULSE 94; RESP 18; TEMP 36.7; O2SAT 96
== END 2023-06-15 10:48 | disposition home or self-care (01) ==
PROVIDERS: Emergency Provider Nurse Practitioner Family
DX: J20.9 Acute bronchitis, unspecified (principal); J01.90 Acute sinusitis, unspecified; F17.210 Nicotine dependence, cigarettes, uncomplicated
CPT/HCPCS: 99212; 99214; G0463

== ENCOUNTER 2023-08-01 14:59 | Emergency (ER) | payer BC, SELFPAY ==
[2023-08-01 15:00] VITALS: BP 134/97; PULSE 107; RESP 19; TEMP 37.6; O2SAT 97; BMI 39.0
[2023-08-01 15:45] VITALS: BP 148/98; PULSE 102; O2SAT 92
[2023-08-01 16:00] VITALS: BP 143/95; PULSE 98; O2SAT 93
--- NOTE | 2023-08-01 16:15 | PC.NURSE ---
Dr. Luz at [facility]
--- NOTE | 2023-08-01 16:16 | PC.NURSE ---
DR DENTON AT BEDSIDE
--- NOTE | 2023-08-01 16:30 | HMH.EDGENADL ---
Discharge Plan Disposition Patient Disposition: Home, Self-Care Prescriptions Prescriptions: New amoxicillin-pot clavulanate 875-125 mg tablet 1 tab PO BID 10 Days Qty: 20 0RF No Action pantoprazole [Protonix] 40 mg tablet,delayed release (DR/EC) 40 mg PO DAILY Qty: 90 3RF sildenafil 100 mg tablet 100 mg PO DAILY PRN (Reason: sexual activity) Qty: 7 12RF Rx Instructions: administer 30 minutes to 4 hours before activity quetiapine [Seroquel] 200 mg tablet 200 mg PO DAILY Qty: 30 10RF Vraylar 3 mg capsule 3 mg PO DAILY Qty: 30 5RF buprenorphine-naloxone 8-2 mg tablet, sublingual 1 tab SUBLINGUAL DAILY buspirone 15 mg tablet See Rx Instructions .ROUTE .COMPLEX Qty: 60 10RF Dose Instruction: TAKE ONE TABLET BY MOUTH TWICE A DAY NEEDED FOR ANXIETY *MAY CAUSE DROWSINESS* Rx Instructions: TAKE ONE TABLET BY MOUTH TWICE A DAY NEEDED FOR ANXIETY *MAY CAUSE DROWSINESS* escitalopram oxalate [Lexapro] 10 mg tablet 10 mg PO DAILY Qty: 90 3RF etodolac 500 mg tablet 500 mg PO BID 30 Days Qty: 60 2RF gabapentin 400 mg capsule 400 mg PO TID Qty: 90 0RF pramoxine 15 GM foam 1 applicatio TP TID 10 Days Qty: 15 0RF cefdinir [cefdinir] 300 mg capsule 300 mg PO BID Qty: 14 0RF benzonatate [benzonatate] 100 mg capsule 100 mg PO TIDP PRN (Reason: Cough) Qty: 30 0RF methylprednisolone 4 mg Tablets,Dose Pack 4 mg PO DIRECTED Qty: 21 0RF cefdinir 300 mg capsule 300 mg PO BID Qty: 20 0RF Referrals Follow up/Referrals: Provider,Referral, MD [Primary Care Provider] - See instructions Activity Restrictions/Add. Instructions Additional Instructions/Restrictions: Call your family doctor to establish care for this visit to the emergency department and schedule follow-up within 48 hours to ensure improvement. If you have any worsening of your condition or any other concerning signs or symptoms, return to the emergency department or your primary care doctor for further evaluation. Take entire course of Augmentin for 10 days. Clinical Impressions Clinical Impression: Pharyngitis Qualifiers: Pharyngitis/tonsillitis etiology: unspecified etiology Qualified Code(s): J02.9 - Acute pharyngitis, unspecified Discharge ED Provider: Ladarius Luz General Adult HPI General Chief complaint: Upper Respiratory Infection Stated complaint: sore throat Time Seen by Provider: 08/01/23 16:00 Mode of Arrival: Ambulatory Source of Information: Patient Limitations: No Limitations Description of Symptoms (Recalled from ER Triage Doc. by RN): PT C/O SORE THROAT, LEFT SIDED NECK/THROAT PAIN THAT STARTED LAST NIGHT. HX OF PERITONSILLAR ABSCESS History of Present Illness HPI narrative: 37-year-old male with history of numerous peritonsillar abscesses presenting with throat pain. Patient states he started having throat pain about 10 days ago. Got acutely worse 1 day prior to arrival. Denies fevers or chills, nausea or vomiting, voice changes, difficulty swallowing, difficulty or pain with range of motion of neck, neurologic changes. Pain is mild in intensity, worse with swallowing, but patient has been able to tolerate p.o. intake. Related Data Home Medications Medication Instructions Recorded Confirmed buprenorphine 8 mg-naloxone 2 mg 1 tab sublingual DAILY 02/17/22 02/12/23 sublingual tablet Previous Rx's Medication Instructions Recorded cariprazine 3 mg capsule (Vraylar) 3 mg PO DAILY #30 caps 05/05/21 pantoprazole 40 mg tablet,delayed 40 mg PO DAILY #90 tabs 09/02/21 release (Protonix) sildenafil 100 mg tablet 100 mg PO DAILY PRN sexual 09/02/21 activity #7 tabs pramoxine 1 % topical foam 1 applicatio topical TID 10 days 10/31/21 #15 grams buspirone 15 mg tablet See Rx Instructions .Route 09/11/22 .COMPLEX #60 tabs escitalopram oxalate 10 mg tablet 10 mg PO DAILY #90 tabs 09/11/22 (Lexapro) etodolac 500 mg tablet 500 mg PO BID 3
[2023-08-01 16:31] VITALS: BP 136/94; PULSE 107; O2SAT 95
--- NOTE | 2023-08-01 16:44 | PC.NURSE ---
rounded on patient, family at bedside. no complaints noted.
[2023-08-01 17:00] VITALS: BP 143/88; PULSE 97; O2SAT 91
--- NOTE | 2023-08-01 17:07 | PC.NURSE ---
ROUNDED ON PT, TOLERATED MEDS, NO ISSUES OR CONCERNS AT THIS TIME
--- NOTE | 2023-08-01 17:22 | PC.NURSE ---
rounded on pt, visitor at BS, pt states no needs at this time
[2023-08-01 17:41] VITALS: BP 147/92; PULSE 95; RESP 17; TEMP 37.2; O2SAT 95
== END 2023-08-01 17:41 | disposition home or self-care (01) ==
PROVIDERS: Emergency Provider Emergency Medicine
DX: J02.9 Acute pharyngitis, unspecified (principal); F17.210 Nicotine dependence, cigarettes, uncomplicated
CPT/HCPCS: 99283

== ENCOUNTER → 2023-08-18 23:20 | Outpatient (CLI) | payer BC, SELFPAY ==
[2023-08-18 18:33] LABS: Chloride 108 mmol/L (98-107); Potassium 4.4 mmoL/L (3.5-5.1); Sodium 141 mmol/L (136-145)
[2023-08-18 18:35] LABS: Alanine Aminotransferase 142 U/L (12-78); Aspartate Amino Transferase 89 U/L (17-59); Blood Urea Nitrogen 11 mg/dl (9-20); Estimated Glomerular Filt Rate 109 ml/min (>60); GFR (African American) 132 ML/MIN (>60)
[2023-08-18 18:36] LABS: Albumin Level 4.5 g/dl (3.5-5.0); Albumin/Globulin Ratio 1.3 (1.1-1.8); Alkaline Phosphatase 81 U/L (38-126); Anion Gap 15.4 mEq/L (5-15); Bilirubin,Total 1.1 mg/dl (0.2-1.3); Calcium 9.4 mg/dl (8.4-10.2); Carbon Dioxide 22 mmol/L (22.0-30.0); Globulin 3.4 g/dL (1.3-3.2); Glucose 93 mg/dl (74-100); Total Protein,Serum 7.9 g/dl (6.3-8.2)
[2023-08-18 18:40] LABS: Basophils # 0.1 K/mm3 (0-0.2); Basophils % 0.7 % (0.1-2.0); Eosinophils # 0.3 K/mm3 (0.0-0.4); Eosinophils % 1.8 % (0.1-12.0); Hematocrit 54.1 % (42.0-52.0); Hemoglobin 17.4 g/dL (14.1-18.0); Lymphocytes # 3.1 K/mm3 (0.7-4.5); Lymphocytes % 22.7 % (10-50); Mean Corpuscular HGB Conc 32.2 g/dL (31.8-35.4); Mean Corpuscular Hemoglobin 31.7 pg (27.0-31.2); Mean Corpuscular Volume 98.6 fl (80-94); Mean Platelet Volume 9.8 fl (7.4-10.4); Monocytes # 0.7 K/mm3 (0.1-1.0); Monocytes % 5.2 % (1.7-9.3); Neutrophils # 9.6 K/mm3 (1.8-7.8); Neutrophils % 69.6 % (37.0-80.0); Platelet Count 297 K/mm3 (142-424); Red Blood Count 5.49 M/mm3 (4.60-6.20); Red Cell Distribution Width 13.4 % (11.5-17.5); White Blood Count 13.8 K/mm3 (4.8-10.8)
[2023-08-29 09:56] LABS: HIV Screen 4th Generation wRfx Non Reactive; Hep A Ab, Total Negative; Hepatitis B Surface Antigen Negative
[2023-08-29 09:57] LABS: Hep B Core Ab, Total Negative; Hep B Surface Ab, Qual Reactive; Hepatitis C Antibody Non Reactive
[2023-08-29 09:58] LABS: Fibrosis Score 0.18; Fibrosis Stage F0-NO FIBROSIS; Necroinflammat Activity Score 0.64
[2023-08-29 09:59] LABS: Alpha 2-Macroglobulins, Qn 138; Apolipoprotein A-1 102; Haptoglobin 143
[2023-08-29 10:00] LABS: ALT (SGPT) P5P 134; Bilirubin, Total 0.5; GGT 67
== END ==
PROVIDERS: PCP Internal Medicine; Visit Provider Internal Medicine
DX: M79.671 Pain in right foot (principal); G56.03 Carpal tunnel syndrome, bilateral upper limbs; F11.91 Opioid use, unspecified, in remission; F31.9 Bipolar disorder, unspecified; B34.9 Viral infection, unspecified; I10 Essential (primary) hypertension; E66.9 Obesity, unspecified; Z68.39 Body mass index [BMI] 39.0-39.9, adult; Z72.0 Tobacco use; Z11.4 Encounter for screening for human immunodeficiency virus [HIV]
CPT/HCPCS: 80053; 81596; 85025; 86703; 86704; 86706; 86708; 87340; 87380; 87522; 87902; G0432

== ENCOUNTER 2023-08-19 06:10 | Emergency (ER) | payer BC, SELFPAY ==
[2023-08-19] VITALS (8 sets, daily range): BP systolic 147–179; BP diastolic 96–110; PULSE 86–111; RESP 14–23; TEMP 36.6; O2SAT 95–99; BMI 39.2
--- NOTE | 2023-08-19 06:17 | ECG_ITS ---
APPROVED REPORT Exam: Resting ECG HR:103 bpm ECG Measurements Heart Rate 103 AXES WV 152 P 65 QRSd 100 QRS 55 QT 320 T 58 QTc 380 Conclusion SINUS TACHYCARDIA ABNORMAL RHYTHM ECG UNCONFIRMED REPORT Electronically signed by : Shukri Huff MD 08/19/2023 17:17:14
--- NOTE | 2023-08-19 06:18 | XR_ITS ---
PROCEDURE INFORMATION: Exam: XR Chest Exam date and time: 08/19/2023 6:53 AM Age: 37 years old Clinical indication: Pain; Other: Epigastric; Other: Nausea; Additional info: Epigastric pain, dizzy, vomiting TECHNIQUE: Imaging protocol: Radiologic exam of the chest. Views: 1 view. COMPARISON: CR XR CHEST 2V 04/22/2023 8:10 PM FINDINGS: Lungs: There is a calcified right upper lung granuloma again seen. No consolidation. Pleural spaces: Unremarkable. No pleural effusion. No pneumothorax. Heart/Mediastinum: Unremarkable. No cardiomegaly. Bones/joints: Unremarkable. IMPRESSION: No acute findings.
--- NOTE | 2023-08-19 06:21 | HMH.EDGENADL ---
Discharge Plan Disposition Patient Disposition: Home, Self-Care Condition: Good Prescriptions Prescriptions: New ondansetron 4 mg tablet,disintegrating 4 mg PO Q6H PRN (Reason: nausea and vomiting) Qty: 20 0RF No Action sildenafil 100 mg tablet 100 mg PO DAILY PRN (Reason: sexual activity) Qty: 7 12RF Rx Instructions: administer 30 minutes to 4 hours before activity gabapentin 400 mg capsule 600 mg PO TID 30 Days Qty: 135 1RF quetiapine [Seroquel] 200 mg tablet 400 mg PO DAILY 30 Days Qty: 60 10RF duloxetine 30 mg capsule,delayed release(DR/EC) 30 mg PO DAILY 30 Days Qty: 30 2RF semaglutide 3 mg tablet 3 mg PO DAILY 30 Days Qty: 30 1RF cefdinir [cefdinir] 300 mg capsule 300 mg PO BID Qty: 14 0RF Referrals Follow up/Referrals: Clifford Hein DO [Primary Care Provider] - See instructions Activity Restrictions/Add. Instructions Additional Instructions/Restrictions: You were evaluated in the emergency department today. Please follow-up closely with your primary care provider. Return to the emergency department for any new or worsening symptoms. Clinical Impressions Clinical Impression: Abdominal pain, acute, epigastric Vomiting Qualifiers: Vomiting type: unspecified Nausea presence: with nausea Qualified Code(s): R11.2 - Nausea with vomiting, unspecified Stand Alone Forms Stand Alone Forms: Work/School Release Instructions Patient Instructions: DI for Abdominal Pain-Adult Discharge ED Provider: Ayaka Wilkins General Adult HPI <Makenna Gomez MD - Last Filed: 08/19/23 07:01> General Chief complaint: Chest Pain Stated complaint: vomiting, dizziness Time Seen by Provider: 08/19/23 06:18 History of Present Illness HPI narrative: This 37-year-old male presents to the emergency department with vomiting, dizziness, chills that started 1.5 hours prior to arrival. Patient states he was at work when he suddenly felt nauseous, chilled, and had emesis. Since that time he has had epigastric abdominal pain. He continues to feel dizzy and have chills. He denies any bloody or bilious emesis. He denies any recent fever or other illness. Patient states he has been taken off his Suboxone recently by his primary care physician but has already been through the detox period. Patient states he never eats breakfast but has already drank this morning. He states he is a smoker, occasionally drinks alcohol, former illicit drug user. Patient does have history of cholecystectomy. No family history of heart attack at a young age though his dad had congenital heart problems and stroke. Related Data Previous Rx's Medication Instructions Recorded sildenafil 100 mg tablet 100 mg PO DAILY PRN sexual 09/02/21 activity #7 tabs cefdinir 300 mg capsule 300 mg PO BID #14 caps 04/22/23 duloxetine 30 mg capsule,delayed 30 mg PO DAILY 30 days #30 caps 08/18/23 release gabapentin 400 mg capsule 600 mg PO TID 30 days #135 caps 08/18/23 quetiapine 200 mg tablet (Seroquel) 400 mg PO DAILY 30 days #60 tabs 08/18/23 semaglutide 3 mg tablet 3 mg PO DAILY 30 days #30 tabs 08/18/23 ondansetron 4 mg disintegrating 4 mg PO Q6H PRN nausea and 08/19/23 tablet vomiting #20 tabs Allergies Allergy/AdvReac Type Severity Reaction Status Date / Time erythromycin base Allergy Verified 08/18/23 10:20 Penicillins AdvReac Verified 08/18/23 10:20 PFSH <Makenna Gomez MD - Last Filed: 08/19/23 07:01> [facility] Disclaimer: The information contained in this section may have been updated after the patient was seen, as this information can be updated by other users. Medical History (Updated 08/19/23 @ 07:00 by Makenna Gomez MD) Alcohol use disorder Social History Smoking Status: Current every day smoker tobacco type: cigarettes packs per day: 1 second hand exposure: No alcohol intake: never substance use type: former substance user sandeep
[2023-08-19 06:39] LABS: Basophils # 0.1 K/mm3 (0-0.2); Basophils % 0.7 % (0.1-2.0); Eosinophils # 0.5 K/mm3 (0.0-0.4); Eosinophils % 4.2 % (0.1-12.0); Hemoglobin 16.5 g/dL (14.1-18.0); Lymphocytes # 2.6 K/mm3 (0.7-4.5); Lymphocytes % 23.5 % (10-50); Mean Corpuscular HGB Conc 32.4 g/dL (31.8-35.4); Mean Corpuscular Hemoglobin 31.2 pg (27.0-31.2); Mean Corpuscular Volume 96.3 fl (80-94); Mean Platelet Volume 8.5 fl (7.4-10.4); Monocytes # 0.7 K/mm3 (0.1-1.0); Monocytes % 6.3 % (1.7-9.3); Neutrophils # 7.4 K/mm3 (1.8-7.8); Neutrophils % 65.4 % (37.0-80.0); Platelet Count 246 K/mm3 (142-424); Red Blood Count 5.29 M/mm3 (4.60-6.20); Red Cell Distribution Width 13.3 % (11.5-17.5); White Blood Count 11.2 K/mm3 (4.8-10.8)
[2023-08-19 06:44] LABS: Lactic Acid 1.5 mmol/L (0.7-2.1)
[2023-08-19 06:45] LABS: Alanine Aminotransferase 132 U/L (12-78); Albumin Level 4.3 g/dl (3.5-5.0); Albumin/Globulin Ratio 1.2 (1.1-1.8); Alkaline Phosphatase 76 U/L (38-126); Anion Gap 11.7 mEq/L (5-15); Aspartate Amino Transferase 78 U/L (17-59); Bilirubin,Total 1.1 mg/dl (0.2-1.3); Blood Urea Nitrogen 8 mg/dl (9-20); Calcium 8.9 mg/dl (8.4-10.2); Carbon Dioxide 25 mmol/L (22.0-30.0); Chloride 108 mmol/L (98-107); Creatinine Clearance Estimated 230 mL/min (50-200); Estimated Glomerular Filt Rate 109 ml/min (>60); GFR (African American) 132 ML/MIN (>60); Globulin 3.7 g/dL (1.3-3.2); Glucose 140 mg/dl (74-100); Potassium 3.7 mmoL/L (3.5-5.1); Sodium 141 mmol/L (136-145)
[2023-08-19 06:50] LABS: Lipase 201 U/L (23-300)
[2023-08-19 06:59] LABS: Troponin I < 0.01 ng/ml (0.00-0.034)
--- NOTE | 2023-08-19 07:20 | PC.NURSE ---
Pt ambulatory to bathroom and back to bed. Pt provided with pillow. No other needs voiced.
[2023-08-19 09:53] LABS: Troponin I < 0.01 ng/ml (0.00-0.034)
--- NOTE | 2023-08-19 09:57 | PC.NURSE ---
Notified Dr. Wilkins second trop was resulted
== END 2023-08-19 10:18 | disposition home or self-care (01) ==
PROVIDERS: Emergency Medicine; Emergency Provider Emergency Medicine; PCP Internal Medicine
DX: R10.13 Epigastric pain (principal); R11.2 Nausea with vomiting, unspecified; R42 Dizziness and giddiness; F17.210 Nicotine dependence, cigarettes, uncomplicated; R00.0 Tachycardia, unspecified
CPT/HCPCS: 71045; 80053; 83605; 83690; 84484; 85025; 93005; 96361; 96374; 99285; J2405

== ENCOUNTER → 2023-08-30 16:07 | Outpatient (CLI) | payer BC, SELFPAY ==
[2023-08-30 22:08] LABS: Ferritin 74.1 ng/ml (17.9-464)
== END ==
PROVIDERS: PCP Internal Medicine; Visit Provider Internal Medicine
DX: E61.1 Iron deficiency (principal)
CPT/HCPCS: 82728

== ENCOUNTER → 2023-09-06 16:15 | Outpatient (CLI) | payer SELFPAY ==
[2023-09-06 16:21] LABS: COC Drug Screen Collection Only
== END ==
PROVIDERS: PCP Internal Medicine
DX: Z79.899 Other long term (current) drug therapy (principal)

== ENCOUNTER 2023-10-10 18:56 | Emergency (ER) | payer BC, SELFPAY ==
[2023-10-10 18:57] VITALS: BP 170/112; PULSE 115; RESP 20; TEMP 37.2; O2SAT 95; BMI 39.7
--- NOTE | 2023-10-10 19:09 | PC.NURSE ---
Dr. Dillard at BS for pt eval
--- NOTE | 2023-10-10 19:11 | CT_ITS ---
PROCEDURE INFORMATION: Exam: CT Abdomen And Pelvis With Contrast Exam date and time: 10/10/2023 7:55 PM Age: 38 years old Clinical indication: Abdominal pain; Localized; Right; Additional info: R CVA pain TECHNIQUE: Imaging protocol: Computed tomography of the abdomen and pelvis with contrast. Radiation optimization: All CT scans at this facility use at least one of these dose optimization techniques: automated exposure control; mA and/or kV adjustment per patient size (includes targeted exams where dose is matched to clinical indication); or iterative reconstruction. Contrast material: ISOVUE; Contrast volume: 75 ml; Contrast route: IV; REPORTING DATA: Count of CT and Cardiac NM exams in prior 12 months: This patient has received 0 known CTs and 0 known cardiac nuclear medicine studies in the 12 months prior to the current study. COMPARISON: CT ABDOMEN PELVIS WO CON 11/12/2021 11:10 AM FINDINGS: Lungs: Small linear density in the lingula suggest parenchymal scarring or atelectasis, as before. The visualized lung bases are clear. No pleural effusions. Heart: The visualized portions of the heart are unremarkable. There is a small pericardial fluid collection present. Liver: There is diffuse decrease in hepatic/liver parenchymal density consistent with fatty infiltration. There is mild enlargement of the liver. Liver measures 19.4 cm in CC dimension. Gallbladder and bile ducts: The gallbladder is not seen suggesting cholecystectomy. Pancreas: The pancreas is normal. Spleen: There is mild nonspecific splenomegaly. The spleen measures 15 cm in AP dimension. An accessory splenule is present. Adrenal glands: The adrenal glands are normal. Kidneys and ureters: The kidneys are normal. No ureter stone disease. Stomach and bowel: The stomach is normal. The duodenum is unremarkable. Lack of gastrointestinal contrast limits evaluation of bowel. Unopacified loops of small bowel are within range of normal. The colon is normal. Appendix: A normal appendix is identified. Intraperitoneal space: No free air. No significant fluid collection. Vasculature: No abdominal aortic aneurysm. There is a left pelvic phlebolith. The Lymph nodes: There is no evidence of pathologic adenopathy. There is a rim calcified ovoid structure measuring 14 mm in the infrahepatic space which may reflect calcified lymph node. Urinary bladder: The bladder is incompletely distended. As seen, it appears within range of normal. Reproductive: The prostate and seminal vesicles are normal. 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 There is no evidence of acute fracture. Soft tissues: No significant soft tissue edema. IMPRESSION: 1. Fatty hepatic infiltration. 3. Mild hepatomegaly. 4. Mild splenomegaly.
--- NOTE | 2023-10-10 19:12 | HMH.EDGENADL ---
Discharge Plan Disposition Patient Disposition: Home, Self-Care Chief Complaint: Back Pain/Injury Prescriptions Prescriptions: No Action sildenafil 100 mg tablet 100 mg PO DAILY PRN (Reason: sexual activity) Qty: 7 12RF Rx Instructions: administer 30 minutes to 4 hours before activity gabapentin 400 mg capsule 600 mg PO TID 30 Days Qty: 135 1RF quetiapine [Seroquel] 200 mg tablet 400 mg PO DAILY 30 Days Qty: 60 10RF duloxetine 30 mg capsule,delayed release(DR/EC) 30 mg PO DAILY 30 Days Qty: 30 2RF semaglutide 3 mg tablet 3 mg PO DAILY 30 Days Qty: 30 1RF pramipexole 0.25 mg tablet 0.25 mg PO HS 30 Days Qty: 60 1RF Rx Instructions: 1-2 tablets at bedtime for restless legs. ondansetron 4 mg tablet,disintegrating 4 mg PO Q6H PRN (Reason: nausea and vomiting) Qty: 20 0RF Referrals Follow up/Referrals: Clifford Hein DO [Primary Care Provider] - See instructions Activity Restrictions/Add. Instructions Additional Instructions/Restrictions: At this time it was felt you are safe to be discharged home. If new or worsening symptoms please do not hesitate to return the emergency department. Please follow-up with your family doctor for continued evaluation of your elevated liver markers. Clinical Impressions Clinical Impression: Transaminitis, Hepatosplenomegaly, Back pain Instructions Patient Instructions: DI for Low Back Pain Discharge ED Provider: Melvin Dillard General Adult HPI General Chief complaint: Back Pain/Injury Stated complaint: back pain Time Seen by Provider: 10/10/23 19:04 History of Present Illness HPI narrative: Patient is a 38-year-old male with past medical history of restless leg syndrome, previous opioid use disorder who presents emergency department for evaluation of right-sided back pain. Onset was acute, approximately 6 to 7 days ago. Right CVA area radiating into his posterior flank. Denies trauma, dysuria, vomiting. Pain is severe in intensity. Patient has chronic diarrhea at baseline. No other acute complaints at this time. Regards to surgical history patient has previous cholecystectomy. Related Data Previous Rx's Medication Instructions Recorded sildenafil 100 mg tablet 100 mg PO DAILY PRN sexual 09/02/21 activity #7 tabs duloxetine 30 mg capsule,delayed 30 mg PO DAILY 30 days #30 caps 08/18/23 release gabapentin 400 mg capsule 600 mg PO TID 30 days #135 caps 08/18/23 quetiapine 200 mg tablet (Seroquel) 400 mg PO DAILY 30 days #60 tabs 08/18/23 semaglutide 3 mg tablet 3 mg PO DAILY 30 days #30 tabs 08/18/23 ondansetron 4 mg disintegrating 4 mg PO Q6H PRN nausea and 08/19/23 tablet vomiting #20 tabs pramipexole 0.25 mg tablet 0.25 mg PO HS restless leg(s) 30 08/30/23 days #60 tabs Allergies Allergy/AdvReac Type Severity Reaction Status Date / Time erythromycin base Allergy Verified 08/30/23 15:46 Penicillins AdvReac Verified 08/30/23 15:46 PFSH PFSH Disclaimer: The information contained in this section may have been updated after the patient was seen, as this information can be updated by other users. Medical History Alcohol use disorder He has been clean for 2 years, I congratulated him on this. 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
--- NOTE | 2023-10-10 19:24 | ECG_ITS ---
APPROVED REPORT Exam: Resting ECG HR:101 bpm ECG Measurements Heart Rate 101 AXES CO 172 P 59 QRSd 104 QRS 65 QT 312 T 63 QTc 370 Conclusion SINUS TACHYCARDIA ABNORMAL RHYTHM ECG UNCONFIRMED REPORT Electronically signed by : Shukri Huff MD 10/11/2023 17:28:07
[2023-10-10 19:39] LABS: Basophils # 0.2 K/mm3 (0-0.2); Basophils % 1.2 % (0.1-2.0); Eosinophils # 0.8 K/mm3 (0.0-0.4); Eosinophils % 5.8 % (0.1-12.0); Hematocrit 53.3 % (42.0-52.0); Lymphocytes # 3.4 K/mm3 (0.7-4.5); Lymphocytes % 24.6 % (10-50); Mean Corpuscular HGB Conc 33.8 g/dL (31.8-35.4); Mean Corpuscular Hemoglobin 32.9 pg (27.0-31.2); Mean Corpuscular Volume 97.2 fl (80-94); Mean Platelet Volume 8.4 fl (7.4-10.4); Monocytes # 0.6 K/mm3 (0.1-1.0); Monocytes % 4.2 % (1.7-9.3); Neutrophils # 8.8 K/mm3 (1.8-7.8); Neutrophils % 64.3 % (37.0-80.0); Platelet Count 244 K/mm3 (142-424); Red Blood Count 5.48 M/mm3 (4.60-6.20); Red Cell Distribution Width 13.4 % (11.5-17.5); White Blood Count 13.7 K/mm3 (4.8-10.8)
[2023-10-10 19:45] LABS: Chloride 104 mmol/L (98-107)
[2023-10-10 19:46] LABS: Potassium 3.8 mmoL/L (3.5-5.1); Sodium 137 mmol/L (136-145)
[2023-10-10 19:48] LABS: Alanine Aminotransferase 117 U/L (12-78); Albumin Level 4.5 g/dl (3.5-5.0); Alkaline Phosphatase 81 U/L (38-126); Anion Gap 9.8 mEq/L (5-15); Aspartate Amino Transferase 67 U/L (17-59); Bilirubin,Total 0.8 mg/dl (0.2-1.3); Blood Urea Nitrogen 11 mg/dl (9-20); Carbon Dioxide 27 mmol/L (22.0-30.0); Creatinine Clearance Estimated 205 mL/min (50-200); Estimated Glomerular Filt Rate 95 ml/min (>60); GFR (African American) 115 ML/MIN (>60)
[2023-10-10 19:49] LABS: Albumin/Globulin Ratio 1.3 (1.1-1.8); Calcium 8.8 mg/dl (8.4-10.2); Globulin 3.6 g/dL (1.3-3.2); Glucose 137 mg/dl (74-100); Lipase 311 U/L (23-300); Total Protein,Serum 8.1 g/dl (6.3-8.2)
[2023-10-10 20:30] VITALS: BP 144/92; PULSE 89; RESP 18; O2SAT 96
[2023-10-10 21:00] VITALS: BP 139/86; PULSE 90; RESP 16; O2SAT 95
[2023-10-10 21:14] LABS: Microscopic, Urine URINE MICROSCOPIC (MICROSCOPIC)
[2023-10-10 21:21] LABS: Appearance,Urine CLEAR (Clear); Bilirubin,Urine Negative (Negative); Blood, Urine Negative (Negative); Color,Urine YELLOW (Yellow); Glucose,Urine (UA) Negative (Negative); Ketones,Urine Negative (Negative); Leukocyte Esterase,Urine Negative (Negative); Nitrate,Urine Negative (Negative); Protein,Urine TRACE (Negative)
[2023-10-10 21:35] VITALS: BP 150/78; PULSE 78; RESP 18; TEMP 36.8
== END 2023-10-10 21:39 | disposition home or self-care (01) ==
PROVIDERS: Emergency Provider Emergency Medicine; PCP Internal Medicine
DX: R10.31 Right lower quadrant pain (principal); R16.2 Hepatomegaly with splenomegaly, not elsewhere classified; M54.59 Other low back pain; R74.01 Elevation of levels of liver transaminase levels; F17.210 Nicotine dependence, cigarettes, uncomplicated
CPT/HCPCS: 74177; 80053; 81001; 83690; 85025; 93005; 96361; 96374; 96375; 99284; J0131; Q9967

== ENCOUNTER 2024-01-19 18:16 | Outpatient (CLI) | payer BC, SELFPAY ==
[2024-01-19 17:46] LABS: Influenza A, PCR Not Detected (NotDetected); Influenza B, PCR Not Detected (NotDetected)
[2024-01-19 18:21] LABS: Basophils # 0.1 K/mm3 (0-0.2); Basophils % 0.7 % (0.1-2.0); Eosinophils # 0.6 K/mm3 (0.0-0.4); Eosinophils % 9.3 % (0.1-12.0); Hematocrit 48.2 % (42.0-52.0); Hemoglobin 16.1 g/dL (14.1-18.0); Lymphocytes # 2.4 K/mm3 (0.7-4.5); Lymphocytes % 37.4 % (10-50); Mean Corpuscular HGB Conc 33.3 g/dL (31.8-35.4); Mean Corpuscular Hemoglobin 33.2 pg (27.0-31.2); Mean Corpuscular Volume 99.8 fl (80-94); Mean Platelet Volume 9.3 fl (7.4-10.4); Monocytes # 0.4 K/mm3 (0.1-1.0); Neutrophils % 46.5 % (37.0-80.0); Platelet Count 222 K/mm3 (142-424); Red Blood Count 4.83 M/mm3 (4.60-6.20); Red Cell Distribution Width 13.4 % (11.5-17.5); White Blood Count 6.4 K/mm3 (4.8-10.8)
[2024-01-19 19:14] LABS: Alanine Aminotransferase 72 U/L (12-78); Albumin Level 3.7 g/dl (3.5-5.0); Albumin/Globulin Ratio 1.3 (1.1-1.8); Alkaline Phosphatase 88 U/L (38-126); Amylase 65 U/L (30-110); Anion Gap 11.9 mEq/L (5-15); Aspartate Amino Transferase 51 U/L (17-59); Bilirubin,Direct 0.2 mg/dl (0.0-0.4); Bilirubin,Indirect 0.4 mg/dL (0.0-0.9); Bilirubin,Total 0.6 mg/dl (0.2-1.3); Bilirubin,Unconjugated 0.4 mg/dL (0.0-1.1); Blood Urea Nitrogen 10 mg/dl (9-20); Calcium 8.6 mg/dl (8.4-10.2); Carbon Dioxide 25 mmol/L (22.0-30.0); Chloride 107 mmol/L (98-107); Estimated Glomerular Filt Rate 95 ml/min (>60); GFR (African American) 115 ML/MIN (>60); Globulin 2.9 g/dL (1.3-3.2); Glucose 128 mg/dl (74-100); Lipase 192 U/L (23-300); Potassium 3.9 mmoL/L (3.5-5.1); Sodium 140 mmol/L (136-145); Total Protein,Serum 6.6 g/dl (6.3-8.2)
[2024-01-19 19:49] LABS: Coronavirus 19, PCR Detected (NotDetected)
[2024-01-19 20:02] LABS: Vitamin B12 880 pg/mL (239-931)
[2024-01-19 20:20] LABS: Hemoglobin A1C 5.3 % (4.0-6.0)
== END 2024-01-19 23:59 ==
LOC: LAB.DROPOF 18:17
PROVIDERS: PCP Family Medicine; Visit Provider Family Medicine
DX: U07.1 COVID-19 (principal); R16.2 Hepatomegaly with splenomegaly, not elsewhere classified; R74.01 Elevation of levels of liver transaminase levels; D75.89 Other specified diseases of blood and blood-forming organs; Z79.899 Other long term (current) drug therapy
CPT/HCPCS: 80053; 80076; 82150; 82607; 83036; 83690; 85025; 87636

== ENCOUNTER 2024-02-14 15:47 | Outpatient (CLI) | payer BC, SELFPAY ==
--- NOTE | 2024-02-14 15:51 | XR_ITS ---
FINAL REPORT CLINICAL HISTORY: right shoulder pain FINDINGS: Right shoulder Three views were obtained. There is no acute fracture or dislocation. There are minimal hypertrophic changes of the AC joint. No soft tissue abnormality is identified. IMPRESSION: No acute process. Reviewed, Interpreted and Dictated by Paulie Holden MD Transcribed by Brooklyn Kemp Authenticated and [facility]
== END 2024-02-14 23:59 ==
LOC: RAD 15:49
PROVIDERS: PCP Internal Medicine; Visit Provider Internal Medicine
DX: M25.511 Pain in right shoulder (principal)
CPT/HCPCS: 73030

== ENCOUNTER 2024-03-06 12:54 | Outpatient (POV) | payer BC, SELFPAY ==
[2024-03-06 13:09] VITALS: BP 149/98; PULSE 104; RESP 18; TEMP 36.6; O2SAT 98; BMI 38.9
--- NOTE | 2024-03-06 13:19 | EXP.PAIN.OV ---
HPI Data of Consult Patient: new to practice Consult date: 03/06/24 Requesting Physician: Ayaka Young APRN Primary Care Provider: Clifford Hein DO Consult Narrative Reason for consult: Right shoulder pain History of present illness: Mr. Cheema is a 38 year old male who presents today as a new patient. He is a referral from Dr. Serna's office. Today he rates his pain a 9 out of 10. Patient states his pain is all in his right shoulder related to an injury he suffered about 10 years ago. Patient states he was initially operating a munoz when he twisted and popped it out of place. Patient states that it was 6 to 7 months later where he had a 4 matt accident and again popped it out of place causing worsening pain. Patient states from then on he has had pain in this joint. He states he has very limited range of motion of the right shoulder joint. He states up until the last couple of months it was maintaining however the pain has gotten worse unrelated to any new injury. He states it is a constant sharp sensation that interferes with his ability to perform activities of daily living such as cooking and cleaning. Patient has tried [id number] Tylenol and ibuprofen along with heat and ice and topicals with no relief. Patient has had physical therapy in the past however this worsened his symptoms. Patient has tried to continue to do at home exercising and stretching for longer than 6 weeks with minimal relief. Patient denies any prior surgery or injection history. Patient has had x-ray imaging however denies any advanced imaging. He is prescribed gabapentin 300 mg 3 times a day from an outside provider. His Sukhdeep has been reviewed and is appropriate. CC: Ayaka Young APRN [facility] Disclaimer: The information contained in this section may have been updated after the patient was seen, as this information can be updated by other users. 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 Review of Systems Review of Systems Review of systems:: pertinent systems reviewed and negative unless documented below Review of systems (narrative): Review of Systems: General: No recent weight changes, no fever, no sleep disturbances Respiratory: No cough, no shortness of air, no recurring pulmonary infections Cardiovascular/peripheral vascular: No chest pain, no palpitations, no edema, no shortness of breath Gastrointestinal: No new onset incontinence, normal bowel movements reported Genitourinary: No new onset incontinence Musculoskeletal: Right shoulder pain psychiatric: [Normal mood/affect] Neurological: [Denies weakness in extremities], [denies balance issues] Meds Home Medications and Allergies Home Medications Medication Instructions Recorded Confirmed Type gabapentin 400 mg capsule 600 mg (1.5 x 400 mg) PO TID 30 02/14/24 02/14/24 Rx days #135 caps omeprazole 40 mg capsule,delayed 40 mg PO DAILY 60 days #60 caps 02/14/24 02/14/24 Rx release pramipexole 0.25 mg tablet 0.25 mg PO HS restless leg(s) 90 02/14/24 02/14/24 Rx days #90 tabs quetiapine 200 mg tablet (Seroquel) 400 mg (2 x 200 mg) PO DAILY 30 02/14/24 02/14/24 Rx days #60 tabs sildenafil 100 mg tablet 100 mg PO DAILY PRN sexual 02/14/24 02/14/24 Rx activity #7 tabs tirzepatide (weight loss) 2.5 2.5 mg (0.5 mL) SQ WEEKLY 4 weeks 02/15/24 02/15/24 Rx mg/0.5 mL subcutaneous pen injector #2 mL New Prescriptions to Start Prescriptions: Allergies Allergy/AdvReac Type Severity Reaction Status Date / Time erythromycin base Allergy Verified 02/14/24 14:51 Penicillins AdvReac Verified 02/14/24 14:51 Objective Narrative: Physical Exam: General: Alert and oriented x3, no acute distress, pleasant and cooperative Lungs: Respirations even and unlabored, symmetrical chest expansion Eyes: PERRL Musculoskeletal: Flexion and extension of right shoulder somewhat guarded secondary to pain, [antalgic gait noted] Neurological: Speech clear, no gross sensory deficit Additional findings Additional findings: FINDINGS: Right shoulder Three views were obtained. There is no acute fracture or dislocation. There are minimal hypertrophic changes of the AC joint. No soft tissue abnormality is identified. IMPRESSION: No acute process. Reviewed, Interpreted and Dictated by Paulie Holden MD Transcribed by Brooklyn Kemp Authenticated and [facility] Assessment and Plan *Assessment and plan (1) Right shoulder pain: Status: Acute Qualifiers: Chronicity: chronic Qualified Code(s): M25.511 - Pain in right shoulder; G89.29 - Other chronic pain Category: Medical Code(s): M25.511 - Pain in right shoulder Plan Patient is experiencing significant pain in his right shoulder with limited range of motion. I have discussed with the patient in future he may benefit from a intra-articular shoulder injection or a suprascapular nerve block. We will follow-up with this at future visits. I will order advanced imaging of an MRI without contrast to rule out possible tear. I will order the patient a compounded cream. Patient will return to clinic in 1 month for reevaluation of symptoms and plan of care. Patient has been instructed to contact the clinic with any concerns before the next appointment. Dr. Quinteros has reviewed this note and agrees with this plan of care. This note was dictated using voice recognition software and make contain errors or omissions.
== END 2024-03-06 23:59 ==
LOC: SC.PAIN 12:55
PROVIDERS: PCP Internal Medicine; Visit Provider Nurse Practitioner Family
DX: M25.511 Pain in right shoulder (principal); G89.29 Other chronic pain
CPT/HCPCS: 99202; G0463

== ENCOUNTER 2024-03-20 10:43 | Outpatient (CLI) | payer BC, SELFPAY ==
--- NOTE | 2024-03-20 10:47 | XR_ITS ---
FINAL REPORT CLINICAL HISTORY: Shortness of breath COMPARISON: 08/19/2023 FINDINGS: No acute pulmonary density is evident. There is no evidence of effusion or other pleural disease. The mediastinum has a normal appearance. The cardiac silhouette is unremarkable. IMPRESSION: Unremarkable chest exam. Reviewed, Interpreted and Dictated by Elvis Ladd MD Transcribed by Gabrielle Dominguez Authenticated and [facility]
--- NOTE | 2024-03-20 10:47 | XR_ITS ---
FINAL REPORT CLINICAL HISTORY: right foot pain FINDINGS: RIGHT FOOT 3 views of the right foot were obtained. There is no acute fracture or dislocation. Visualized joint spaces are normally aligned. Soft tissues are unremarkable. IMPRESSION: No acute bony abnormality. Reviewed, Interpreted and Dictated by Elvis Ladd MD Transcribed by Yaquelin Jeffery Authenticated and [facility]
== END 2024-03-20 23:59 | disposition home or self-care (01) ==
LOC: RAD 10:44
PROVIDERS: PCP Internal Medicine; Visit Provider Family Medicine
DX: R06.2 Wheezing (principal); M79.671 Pain in right foot
CPT/HCPCS: 71046; 73620; 73630

== ENCOUNTER 2024-03-28 08:06 | Outpatient (CLI) | payer BC, SELFPAY ==
--- NOTE | 2024-03-28 08:12 | MR_ITS ---
FINAL REPORT CLINICAL HISTORY: RIGHT SHOULDER PAIN, LIMITED ROM FINDINGS: Multiplanar MR imaging of the right shoulder was performed without contrast. There is an intrasubstance tear of the distal infraspinatus tendon involving greater than 50% of the thickness of the tendon. Small intrasubstance tears are also seen of the distal supraspinatus tendon. No full-thickness rotator cuff tear is identified. There is mild AC joint arthrosis. No abnormal fluid is seen in the subacromial/subdeltoid bursa. A posterior labral tear is seen with a 12 mm posterior paralabral cyst. The long head of the biceps tendon is intact. A small glenohumeral joint effusion is seen. There is no evidence of fracture or dislocation. The musculature is intact. There is no evidence of soft tissue mass. IMPRESSION: Posterior labral tear with a posterior paralabral cyst. Intrasubstance tears of the distal supraspinatus and infraspinatus tendons as described. Authenticated and ERN
== END 2024-03-28 23:59 | disposition home or self-care (01) ==
LOC: RAD 08:07
PROVIDERS: PCP Internal Medicine; Visit Provider Nurse Practitioner Family
DX: M25.511 Pain in right shoulder (principal)
CPT/HCPCS: 73221

== ENCOUNTER 2024-04-03 14:33 | Outpatient (CLI) | payer BC, SELFPAY ==
[2024-04-03 15:20] VITALS: PULSE 85; PULSE 89
[2024-04-03] MEDS: ALBUTEROL 0.083% 2.5 MG/3 ML NEB IH (15:20)
--- NOTE | 2024-04-03 15:52 | MR_ITS ---
FINAL REPORT CLINICAL HISTORY: right foot pain. PAIN WHEN WALKING. PLANTAR FOOT PAIN BY TOES. NO INJURY OR TRAUMA. COMPARISON: None FINDINGS: Multiplanar MR imaging of the right foot was performed with and without contrast. There is no evidence of fracture or marrow edema. No bony mass is identified. There is thickening of the posterior plantar aponeurosis consistent with plantar fasciitis without evidence of tear. No fluid collections are identified. The intrinsic muscles are unremarkable. Contrast-enhancement is seen within the soft tissues plantar to the first MTP, likely representing inflammation. IMPRESSION: Presumed inflammation in the plantar soft tissues beneath the first MTP. Posterior plantar fasciitis without tear. Reviewed, Interpreted and Dictated by Roberto Jensen III, MD Transcribed by Gabrielle Dominguez Authenticated and [facility]
[2024-04-03] MEDS: GADOTERIDOL INJ 17ML SYRINGE 26 ML IV (17:39)
[2024-04-03] MEDS: SODIUM CHLORIDE 0.9% 10ML SYR (RAD ONLY) 10 ML IV (17:39)
== END 2024-04-03 23:59 | disposition home or self-care (01) ==
LOC: RT 14:34
PROVIDERS: PCP Internal Medicine; Visit Provider Family Medicine
DX: M77.41 Metatarsalgia, right foot (principal); M79.671 Pain in right foot; M77.51 Other enthesopathy of right foot and ankle; Z87.828 Personal history of other (healed) physical injury and trauma; R06.2 Wheezing; R05.9 Cough, unspecified; R06.00 Dyspnea, unspecified
CPT/HCPCS: 73720; 94060; 94640; 94726; 94729; A9576

== ENCOUNTER 2024-04-05 13:54 | Outpatient (POV) | payer BC, SELFPAY ==
[2024-04-05 13:58] VITALS: BP 140/77; PULSE 85; RESP 18; O2SAT 98; BMI 40.1
--- NOTE | 2024-04-05 14:21 | A.OFFVIS_ITS ---
[facility] Pain Management SOAP Note Subjective:: Patient is a pleasant 38-year-old male who presents today for follow-up of his right shoulder MRI. Today he rates his pain a 0 out of 10. Patient denies any new trauma or injury. He does state that his shoulder is still very bothersome and does interfere with his ability perform activities of daily living. Patient is here today to follow-up on imaging findings. Patient is prescribed gabapentin from an outside provider. His Sukhdeep has been reviewed and is appropriate. Review of Systems: General: No recent weight changes, no fever, no sleep disturbances Respiratory: No cough, no shortness of air, no recurring pulmonary infections Cardiovascular/peripheral vascular: No chest pain, no palpitations, no edema, no shortness of breath Gastrointestinal: No new onset incontinence, normal bowel movements reported Genitourinary: No new onset incontinence Musculoskeletal: Right shoulder pain Psychiatric: [Normal mood/affect] Neurological: [Denies weakness in extremities], [denies balance issues] Objective:: Physical Exam: General: Alert and oriented x3, no acute distress, pleasant and cooperative Lungs: Respirations even and unlabored, symmetrical chest expansion Eyes: PERRL Musculoskeletal: Flexion and extension of right shoulder somewhat guarded secondary to pain, [antalgic gait noted] Neurological: Speech clear, no gross sensory deficit Assessment:: Right shoulder pain Plan:: I did review over the findings regarding the patient's MRI with significant tears at 3 different locations. I have discussed with patient that he would benefit from referral to orthopedics for possible surgical intervention. Patient is requesting to be sent here locally. Patient does also state he has other orthopedic issues that he would like to speak to them about. I will send a referral for Dr. Alozno Young here at [facility]. Patient was also discussed that he still may benefit from injection therapy however I would like to confirm that they have no contraindications for the intra-articular shoulder injections. Patient acknowledges understanding and agrees with plan of care. Patient will return to clinic in 1 month for reevaluation and plan of care. Patient has been instructed to contact the clinic with any concerns before the next appointment. Dr. Quinteros has reviewed this note and agrees with this plan of care. This note was dictated using voice recognition software and make contain errors or omissions. [facility] Disclaimer: The information contained in this section may have been updated after the patient was seen, as this information can be updated by other users. Medical History Pharyngitis Pharyngitis Overdose History of peritonsillar abscess Cervical strain, acute Dog bite Sinusitis Nausea vomiting and diarrhea Acute internal derangement of knee Dizziness Alcohol use disorder Strep pharyngitis Tonsillitis Peritonsillar abscess Fall Bronchitis Laceration Head contusion Family History Other No significant family history Social History Smoking Status: Current every day smoker tobacco type: cigarettes packs per day: 1 second hand exposure: No alcohol intake: never substance use type: former substance user current occupational status: employed Travel in the last 8 weeks: None household members: family housing: house 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
--- NOTE | 2024-04-06 15:16 | PC.NURSE ---
referral to Dr. Alonzo Young requested per FRANCISCA Livingston. Appointment obtained from Dr. Young's office for April 25 at 9:30am. Spoke with pt on the phone to notify him of appointment
== END 2024-04-05 23:59 | disposition home or self-care (01) ==
LOC: SC.PAIN 13:54
PROVIDERS: PCP Internal Medicine; Visit Provider Nurse Practitioner Family
DX: M25.511 Pain in right shoulder (principal)
CPT/HCPCS: 99212; G0463

== ENCOUNTER → 2024-04-10 08:20 | Outpatient (CLI) | payer BC, SELFPAY | LOC: SL 08:21 | PROVIDERS: PCP Family Medicine; Visit Provider Family Medicine | DX: G47.33 Obstructive sleep apnea (adult) (pediatric) (principal); G47.36 Sleep related hypoventilation in conditions classified elsewhere; R06.83 Snoring | CPT/HCPCS: G0399 ==

== ENCOUNTER 2024-06-15 23:37 | Emergency (ER) | payer BC, SELFPAY ==
[2024-06-15 23:39] VITALS: BP 150/104; PULSE 104; RESP 20; TEMP 36.9; O2SAT 96; BMI 40.6
--- NOTE | 2024-06-15 23:46 | HMH.EDGENADL ---
Discharge Plan Disposition Patient Disposition: Home, Self-Care Condition: Good Prescriptions Prescriptions: New methocarbamol 500 mg tablet 500 mg PO Q6H PRN (Reason: muscle spasm) Qty: 20 0RF lidocaine 5 % adhesive patch,medicated 1 patch topical DAILY Qty: 15 0RF Rx Instructions: Leave patch on for 12 hours, then remove, leave off for 12 hours before using new patch No Action Trelegy Ellipta 100-62.5-25 mcg blister with device 1 inh inhalation DAILY Qty: 28 2RF gabapentin 600 mg tablet 600 mg PO TID 30 Days Qty: 90 1RF Ubrelvy 100 mg tablet 100 mg PO ONCE PRN (Reason: migraine) Qty: 10 0RF quetiapine [Seroquel] 200 mg tablet 400 mg PO DAILY 30 Days Qty: 60 10RF sildenafil 100 mg tablet 100 mg PO DAILY PRN (Reason: sexual activity) Qty: 7 12RF Rx Instructions: administer 30 minutes to 4 hours before activity colestipol 1 gram tablet PO omeprazole 40 mg capsule,delayed release(DR/EC) 40 mg PO DAILY 60 Days Qty: 90 2RF pramipexole 0.25 mg tablet 0.25 mg PO HS 90 Days Qty: 90 1RF Rx Instructions: 1-2 tablets at bedtime for restless legs. Referrals Follow up/Referrals: Julianne Stephens APRN [Primary Care Provider] - See instructions Activity Restrictions/Add. Instructions Additional Instructions/Restrictions: You were evaluated in the ER. You are appropriate for discharge at this time. Follow-up with your primary care physician. Take the prescribed medications as directed. Return to the ER with new, worsening, or otherwise concerning symptoms. Clinical Impressions Clinical Impression: Neck muscle spasm Instructions Patient Instructions: DI for Neck Pain Print Language Print Language: Samoan Discharge ED Provider: Makenna Gomez General Adult HPI General Chief complaint: Neck Pain/Injury Stated complaint: knot back of neck, movement causes pain Time Seen by Provider: 06/15/24 23:42 Mode of Arrival: Ambulatory Source of Information: Patient Limitations: No Limitations Description of Symptoms (Recalled from ER Triage Doc. by RN): 38 M presents from home with c/o right sided neck pain that started yesterday while sitting on the couch. Patient reports this was a sudden pain with a knot right behind his ear. Patient reports pain with ROM. History of Present Illness HPI narrative: 38-year-old male presents to the ER for concerns of pain in the right side of his neck that started yesterday while sitting on the couch. He states he did not have any known injuries, he suddenly was grabbed by pain in the right side of the neck behind the ear and has had pain with movement of the neck since that time. No chiropractic work recently. He states he took his gabapentin which was previously prescribed to him without improvement of symptoms, he has not taken other medications. No new numbness, tingling, weakness, paresthesias, vision changes, or other neurologic deficits. No fevers, no cervical spine pain, no headache, no other associated symptoms. Related Data Home Medications ?Medication ?Instructions ?Recorded ?Confirmed colestipol 1 gram tablet g PO 03/20/24 05/15/24 Previous Rx's ?Medication ?Instructions ?Recorded quetiapine 200 mg tablet (Seroquel) 400 mg (2 x 200 mg) PO DAILY 30 02/14/24 days #60 tabs sildenafil 100 mg tablet 100 mg PO DAILY PRN sexual 02/14/24 activity #7 tabs fluticasone fur. 100 mcg-umeclid 1 inh inhalation DAILY #28 ea 04/24/24 62.5 mcg-vilant 25 mcg inhalat.powder (Trelegy Ellipta) gabapentin 600 mg tablet 600 mg PO TID 30 days #90 tabs 04/24/24 ubrogepant 100 mg tablet (Ubrelvy) 100 mg PO ONCE PRN migraine #10 04/24/24 tabs omeprazole 40 mg capsule,delayed 40 mg PO DAILY 60 days #90 caps 05/15/24 release pramipexole 0.25 mg tablet 0.25 mg PO HS restless leg(s) 90 05/15/24 days #90 tabs lidocaine 5 % topical patch 1 patch topical DAILY #15 ea 06/16/24 methocarbamol 500 mg tablet 500 mg PO Q6H PRN muscle spasm #20 06/16/24 tabs Allergies Allergy/AdvReac Type Severity Reaction Status Date / Time erythromycin base Allergy Intermediate Rash Verified 06/15/24 23:47 Penicillins Allergy Intermediate Rash Verified 06/15/24 23:47 [facility] Disclaimer: The information contained in this section may have been updated after the patient was seen, as this information can be updated by other users. Medical History (Updated 06/16/24 @ 00:18 by Makenna Gomez MD) Chronic bronchitis with wheezing Wheezing Cough Dyspnea Pharyngitis Pharyngitis Overdose History of peritonsillar abscess Cervical strain, acute Dog bite Sinusitis Nausea vomiting and diarrhea Acute internal derangement of knee Dizziness Alcohol use disorder Strep pharyngitis Tonsillitis Peritonsillar abscess Fall Bronchitis Laceration Head contusion Family History Other No significant family history Social History (Updated 06/15/24 @ 23:46 by Drake Mcgraw RN) Smoking Status: Current every day smoker tobacco type: cigarettes packs per day: 1 second hand exposure: No alcohol intake: current alcohol intake frequency: holidays/special occasions only substance use type: marijuana current occupational status: employed Travel in the last 8 weeks: None household members: family housing: house 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 Obtained: Yes All systems reviewed & no additional complaints except as documented Constitutional Constitutional: Denies chills, Denies fever(s), Denies headache(s) and Denies weakness Eyes Eyes: Denies change in vision ENT Ears, Nose, Mouth, and Throat: Denies dizziness, Denies headache(s), Denies nasal congestion, Reports neck pain and Denies sore throat Cardiovascular Cardiovascular: Denies chest pain and Denies dyspnea Respiratory Respiratory: Denies cough and Denies dyspnea Gastrointestinal Gastrointestingal: Denies abdominal pain, diarrhea, nausea or vomiting Genitourinary Male Genitourinary: Denies difficulty urinating Musculoskeletal Musculoskeletal: Denies arthralgias, Denies muscle weakness, Reports myalgias, Reports neck pain, Denies numbness, Denies radiating pain into limb and Denies tingling Integumentary/Breasts Skin/Breast: Denies change in pigmentation Neurologic Neurologic: Denies dizziness, Denies headache(s), Denies numbness, Denies tingling and Denies weakness Physical Exam General General appearance: alert and in no apparent distress Head Head exam: atraumatic and normocephalic Eye Eye exam: Present PERRL and EOMI ENT ENT exam: Present mucous membranes moist and other (No mastoid tenderness, fluctuance, or swelling, no ear pain) Neck Neck exam: Present normal inspection, full ROM (Patient is able to fully move the neck, he just has significant pain over the proximal right SCM area when doing so), trachea midline and tenderness (Right proximal sternocleidomastoid muscle near the insertion at the mastoid, no cervical spine tenderness); Absent meningismus or lymphadenopathy Chest Chest inspection: Present symmetric chest wall rise Respiratory Respiratory exam: Absent respiratory distress or stridor Cardiovascular Cardiovascular exam: Present regular rate and normal rhythm Extremities Exam Extremities exam: Present full ROM Neurological Exam Neurological exam: Present alert, oriented X3 and other (No paresthesias or deficits with neck movement); Absent motor sensory deficit Psychiatric Psychiatric exam: Present normal affect and normal mood Skin Skin exam: Present warm and dry Medical Decision Making Medical Records Medical records reviewed: Yes I reviewed the patient's medical records. MR Comment: Patient follows with pain management, Dr. Quinteros, for previous right shoulder injury. He has also been seen by orthopedics for this pain and received shoulder injection. Sukhdeep Inquiry Pt receiving controlled substance: No Vital Signs: 06/15/24 23:39 06/16/24 00:14 Temperature 98.5 F 98 F Temperature Source Oral Oral Pulse Rate 94 H Pulse Rate [Left] 104 H Respiratory Rate 20 20 Blood Pressure 141/95 H Blood Pressure [Right Arm] 150/104 H Blood Pressure Mean [Right Arm] 119 Blood Pressure Source Automatic Cuff Blood Pressure Source [Right Arm] Automatic Cuff Blood Pressure Position Sitting Blood Pressure Position [Right Arm] Sitting 02 Sat by Pulse Oximetry 96 Oxygen Delivery Method Room Air Room Air Orders (Tests/Meds): ED MEDICATIONS Discontinued Medications Generic Name Dose Route Start Last Admin Trade Name Ravi PRN Reason Stop Dose Admin Acetaminophen 1,000 mg 06/15/24 23:45 06/15/24 23:53 Acetaminophen 500mg Tab PO 06/15/24 23:46 1,000 mg ONCE ONE Administration Ketorolac Tromethamine 15 mg 06/15/24 23:45 06/15/24 23:54 Ketorolac 30mg/Ml Vial IM 06/15/24 23:46 15 mg ONCE ONE Administration Lidocaine 1 each 06/15/24 23:45 06/15/24 23:53 Lidocaine 5% Transdermal Patch TP 06/15/24 23:46 1 each ONCE ONE Administration Methocarbamol 1,500 mg 06/15/24 23:46 06/15/24 23:53 Methocarbamol 500mg Tablet PO 06/15/24 23:47 1,500 mg ONCE ONE Administration ORDERS Category Date Time Status POCUS Point of Care (ER Only) Stat Exams 06/15/24 23:42 Stop Req Medical Decision Narrative: In summary, this 38-year-old male presents to the emergency department today with right-sided neck pain. On initial evaluation patient is hemodynamically stable, afebrile, GCS 15, no neurologic deficits, tenderness to palpation of the sternocleidomastoid muscle near its insertion at the mastoid, muscle is tense, no midline cervical spine tenderness, no findings of injury, no neurologic deficits with movement. Differential diagnosis includes but is not limited to muscle spasm which I believe is most likely etiology of patient's pain, I did consider cervical radiculopathy, other traumatic injury, however patient does not have any history of traumatic injury to the neck and does not have any radiculopathy symptoms. I also considered lymphadenopathy. Patient does not have specific risk factors for dissection though I additionally considered this, he has no neurologic deficits and no injuries or movements that would have caused this, so I do not believe workup for that is necessary at this time. Additionally I did consider mastoiditis since his tenderness originates posterior to the ear, however he does not have any history of ear infection does not have findings of mastoiditis. At this time I do not believe patient requires any labs or imaging. Multimodal pain control including Toradol, acetaminophen, lidocaine patch, methocarbamol were administered to the patient. He does have an adult daughter with him who is able to drive him home if he becomes sleepy from the methocarbamol. On reassessment patient had improvement of symptoms shortly after receiving medication. He had improvement of range of motion of his neck, continued to be free of any neurologic deficits. He is appropriate for discharge at this time. I prescribed methocarbamol, lidocaine patches. Patient was given instructions on symptomatic management, follow up instructions, and return precautions for the emergency department. Patient indicated understanding and was discharged in stable condition. Critical Care Critical Care Time Critical Care Time: No
[2024-06-15] MEDS: METHOCARBAMOL 500MG TABLET 1500 MG PO (23:53)
[2024-06-15] MEDS: ACETAMINOPHEN 500MG TAB 1000 MG PO (23:53)
[2024-06-15] MEDS: LIDOCAINE 5% TRANSDERMAL PATCH 1 EACH TP (23:53)
[2024-06-15] MEDS: KETOROLAC 30MG/ML VIAL 15 MG IM (23:54)
[2024-06-16 00:14] VITALS: BP 141/95; PULSE 94; RESP 20; TEMP 36.6; O2SAT 95
== END 2024-06-16 00:10 | disposition home or self-care (01) ==
PROVIDERS: Emergency Provider Emergency Medicine; PCP Family Medicine
DX: M54.2 Cervicalgia (principal); M62.838 Other muscle spasm
CPT/HCPCS: 96372; 99283; J1885

== ENCOUNTER 2024-08-07 06:16 | Emergency (ER) | payer SELFPAY ==
[2024-08-07 06:17] VITALS: BP 170/106; PULSE 92; RESP 18; TEMP 36.6; O2SAT 97; BMI 37.6
--- NOTE | 2024-08-07 06:24 | ED_ITS ---
Discharge Plan Disposition Patient Disposition: Home, Self-Care Prescriptions Prescriptions: New clindamycin HCl 150 mg capsule 300 mg PO QID 7 Days Qty: 56 0RF No Action gabapentin 600 mg tablet 600 mg PO TID 30 Days Qty: 90 1RF quetiapine [Seroquel] 200 mg tablet 400 mg PO DAILY 30 Days Qty: 60 10RF Referrals Follow up/Referrals: Clifford Hein DO [Primary Care Provider] - See instructions Activity Restrictions/Add. Instructions Additional Instructions/Restrictions: Please see dentist as soon as possible for definitive care. Please take antibiotics as prescribed for treatment of dental infection. Clinical Impressions Clinical Impression: Dental infection Print Language Print Language: Citizen Of [place] Discharge ED Provider: Marbin Clinton General Adult HPI General Chief complaint: Dental/Oral Stated complaint: mouth abcess Time Seen by Provider: 08/07/24 06:20 History of Present Illness HPI narrative: 38-year-old male with history of hypertension and obesity presents for dental pain. He reports that his right upper teeth have been hurting for a while but h e complains of worsening pain and swelling in his face this morning. Reports he has not seen a dentist. Denies fever. Related Data Previous Rx's ?Medication ?Instructions ?Recorded quetiapine 200 mg tablet (Seroquel) 400 mg (2 x 200 mg) PO DAILY 30 02/14/24 days #60 tabs gabapentin 600 mg tablet 600 mg PO TID 30 days #90 tabs 04/24/24 clindamycin HCl 150 mg capsule 300 mg (2 x 150 mg) PO QID 7 days 08/07/24 #56 caps Allergies Allergy/AdvReac Type Severity Reaction Status Date / Time erythromycin base Allergy Intermediate Rash Verified 07/07/24 07:20 Penicillins Allergy Intermediate Rash Verified 07/07/24 07:20 [facility] Disclaimer: The information contained in this section may have been updated after the patient was seen, as this information can be updated by other users. Medical History (Updated 08/07/24 @ 06:27 by Marbin Clinton MD) Chronic bronchitis with wheezing Wheezing Cough Dyspnea Pharyngitis Pharyngitis Overdose History of peritonsillar abscess Cervical strain, acute Dog bite Sinusitis Nausea vomiting and diarrhea Acute internal derangement of knee Dizziness Alcohol use disorder Strep pharyngitis Tonsillitis Peritonsillar abscess Fall Bronchitis Laceration Head contusion Family History Other No significant family history Social History (Updated 06/15/24 @ 23:46 by Drake Mcgraw RN) Smoking Status: Current every day smoker tobacco type: cigarettes packs per day: 1 second hand exposure: No alcohol intake: current alcohol intake frequency: holidays/special occasions only substance use type: marijuana current occupational status: employed Travel in the last 8 weeks: None household members: family housing: house 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 Poor dentition throughout) Eye Eye exam: Present normal appearance, PERRL and EOMI ENT ENT exam: Present normal external ear exam Neck Neck exam: Present normal inspection and full ROM Chest Chest inspection: Present normal inspection and symmetric chest wall rise; Absent tenderness Respiratory Respiratory exam: Present normal lung sounds bilaterally; Absent respiratory distress Cardiovascular Cardiovascular exam: Present regular rate and normal rhythm Abdominal Exam Abdominal exam: Present soft; Absent distention, tenderness or guarding Extremities Exam Extremities exam: Present normal inspection; Absent edema or joint swelling Back Exam Back exam: Present normal inspection; Absent tenderness Neurological Exam Neurological exam: Present alert and oriented X3; Absent motor sensory deficit Psychiatric Psychiatric exam: Present normal affect and normal mood Skin Skin exam: Present warm, dry and normal color Lymphatic Lymphatic Findings: no adenopathy Medical Decision Making Medical Records Medical records reviewed: Yes I reviewed the patient's medical records. Sukhdeep Inquiry Pt receiving controlled substance: No Sukhdeep was queried for this patient: No Lab Data Lab results reviewed: Yes I reviewed the patient's lab results. Orders (Tests/Meds): ED MEDICATIONS Generic Name Dose Route Start Last Admin Trade Name Freq PRN Reason Stop Dose Admin Acetaminophen 1,000 mg 08/07/24 06:26 Acetaminophen 500mg Tab PO 08/07/24 06:27 ONCE ONE Clindamycin HCl 300 mg 08/07/24 06:26 Clindamycin 150mg Capsule PO 08/07/24 06:27 ONCE ONE Ibuprofen 600 mg 08/07/24 06:26 Ibuprofen 600 Mg Tablet PO 08/07/24 06:27 ONCE ONE Medical Decision Narrative: 38-year-old male presents for right frontal maxillary dental pain and mild swelling.. History was obtained via interactive discussion with patient. On arrival, patient is [afebrile, hemodynamically stable, satting appropriately, alert, oriented x4, GCS 15], moving all extremities spontaneously. Full physical exam performed and significant for no obvious intraoral abscess, poor dentition throughout Differential includes but is not limited to pulpitis, abscess, odontogenic infection. Patient was given ibuprofen, Tylenol and clindamycin for treatment given reported penicillin allergy. Patient was discharged in stable condition with prescription for clindamycin and instructed to follow-up with dentistry soon as possible for definitive management. Procedures Risk/Benefits of Procedure(s) Were Explained: Yes Critical Care Critical Care Time Critical Care Time: No
[2024-08-07] MEDS: CLINDAMYCIN 150MG CAPSULE 300 MG PO (06:31)
[2024-08-07] MEDS: ACETAMINOPHEN 500MG TAB 1000 MG PO (06:31)
[2024-08-07] MEDS: IBUPROFEN 600 MG TABLET PO (06:31)
[2024-08-07 06:41] VITALS: BP 160/100; PULSE 80; RESP 17; TEMP 36.6; O2SAT 98
== END 2024-08-07 06:44 | disposition home or self-care (01) ==
PROVIDERS: Emergency Provider Emergency Medicine; PCP Internal Medicine
DX: K04.7 Periapical abscess without sinus (principal); R22.0 Localized swelling, mass and lump, head; F17.210 Nicotine dependence, cigarettes, uncomplicated
CPT/HCPCS: 99283

== ENCOUNTER 2024-11-28 18:38 | Emergency (ER) | payer SELFPAY ==
[2024-11-28 18:39] VITALS: BP 162/84; PULSE 102; RESP 16; TEMP 37.4; O2SAT 98; BMI 36.2
--- NOTE | 2024-11-28 18:53 | XR_ITS ---
PROCEDURE INFORMATION: Exam: XR Chest Exam date and time: 11/28/2024 6:49 PM Age: 39 years old Clinical indication: Cough and fever; Additional info: Cough fever TECHNIQUE: Imaging protocol: Radiologic exam of the chest. Views: 2 views. COMPARISON: CR XR CHEST 2V 03/20/2024 10:49 AM FINDINGS: Lungs: Again demonstrated is pulmonary nodule in the lingula. It overlies the heart on the lateral . It was present in February 2024. Consider chest CT if clinically indicated. No focal consolidation. Pleural spaces: Unremarkable. No pleural effusion. No pneumothorax. Heart/Mediastinum: Unremarkable. No cardiomegaly. Bones/joints: Unremarkable. IMPRESSION: 1. Again demonstrated is pulmonary nodule in the lingula. It overlies the heart on the lateral . It was present in February 2024. Consider chest CT if clinically indicated. 2. No focal consolidation.
--- NOTE | 2024-11-28 18:59 | ED_ITS ---
Discharge Plan Disposition Patient Disposition: Home, Self-Care Prescriptions Prescriptions: New benzonatate 100 mg capsule 100 mg PO TID PRN (Reason: cough) 5 Days Qty: 20 0RF albuterol sulfate 90 mcg/actuation HFA aerosol inhaler 4 inh inhalation Q4H PRN (Reason: shortness of breath or wheezing) Qty: 8.5 0RF Rx Instructions: 4 puffs every 4 hours for 48 hours then as needed for shortness of breath or wheezing following bssoovubkzxqbds-gepzmrwqj-CH 2-30-10 mg/5 mL syrup 5 ml PO Q6H PRN (Reason: cold symptoms) 7 Days Qty: 118 0RF No Action gabapentin 600 mg tablet 600 mg PO TID 30 Days Qty: 90 1RF lisinopril 10 mg tablet 10 mg PO DAILY Qty: 30 2RF hydrochlorothiazide 12.5 mg tablet 12.5 mg PO DAILY Qty: 30 2RF quetiapine [Seroquel] 200 mg tablet 400 mg PO DAILY 30 Days Qty: 60 3RF Referrals Follow up/Referrals: Clifford Hein DO [Primary Care Provider] - See instructions Jennifer Santana MD [Physician] - See instructions Activity Restrictions/Add. Instructions Additional Instructions/Restrictions: Your chest x-ray did not demonstrate pneumonia. Your symptoms are consistent with a viral syndrome you may follow-up on your COVID and flu test but they would not exchange underwriting consultant if they are positive. Supportive care including Tylenol and ibuprofen and symptomatic medications that were prescribed to you other management for what is currently going on in addition to you stopping smoking please follow-up with our dye beck reel operator as a referral has been made. Clinical Impressions Clinical Impression: Bronchitis, RAD (reactive airway disease), Encounter for smoking cessation counseling, Adenopathy, cervical, Conjunctivitis of right eye Print Language Print Language: Vietnamese Discharge ED Provider: Haseeb El General Adult HPI General Chief complaint: Upper Respiratory Infection Stated complaint: cough, weak nausea Time Seen by Provider: 11/28/24 18:42 Mode of Arrival: Ambulatory Source of Information: Patient Limitations: No Limitations Description of Symptoms (Recalled from ER Triage Doc. by RN): pt presents to ED with c/o cough, weakness. ongoing since wednesday History of Present Illness HPI narrative: Patient is a 39-year-old male who is a 22-year history of smoking 1-1/2 packs/day who has been wheezing for years but does not carry diagnosis of COPD presents today with 4 days of cough, body aches, fevers etc. He also states his throats been sore with cervical adenopathy from historical standpoint. Denies any difficulty swallowing nausea and vomiting or other significant past medical problems. Continues to smoke. Related Data Previous Rx's ?Medication ?Instructions ?Recorded gabapentin 600 mg tablet 600 mg PO TID 30 days #90 tabs 08/10/24 hydrochlorothiazide 12.5 mg tablet 12.5 mg PO DAILY #30 tabs 08/10/24 lisinopril 10 mg tablet 10 mg PO DAILY #30 tabs 08/10/24 quetiapine 200 mg tablet (Seroquel) 400 mg (2 x 200 mg) PO DAILY sleep 08/15/24 30 days #60 tabs albuterol sulfate 90 mcg/actuation 4 inh inhalation Q4H PRN shortness 11/28/24 aerosol inhaler of breath or wheezing #8.5 grams benzonatate 100 mg capsule 100 mg PO TID PRN cough 5 days #20 11/28/24 caps hkdhaxagmwauqqm-sbvvhnhvsxkasic-ZW 5 ml PO Q6H PRN cold symptoms 7 11/28/24 2 mg-30 mg-10 mg/5 mL oral syrup days #118 mL Allergies Allergy/AdvReac Type Severity Reaction Status Date / Time erythromycin base Allergy Intermediate Rash Verified 08/10/24 11:14 Penicillins Allergy Intermediate Rash Verified 08/10/24 11:14 [facility] Disclaimer: The information contained in this section may have been updated after the patient was seen, as this information can be updated by other users. Medical History Chronic bronchitis with wheezing I gave the patient a sample of the [employer] inhaler. I think this patient probably should see pulmonary and have an evaluation. We have other issues to take care of before we do that. Wheezing Cough Dyspnea Pharyngitis Pharyngitis Overdose History of peritonsillar abscess Cervical strain, acute Dog bite Sinusitis Nausea vomiting and diarrhea Acute internal derangement of knee Dizziness Alcohol use disorder He has been clean for 2 years, I congratulated him on this. 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 Have you lived/traveled outside US in past 30 days?: No Contact w/someone who lives/traveled outside US past 30 days?: No Exposure to someone with infectious disease in past 14 days?: No Do you have a fever (greater than 100.4 F or 38 C)?: No Have you tested positive for COVID-19: No Exposed to someone with COVID-19 in past 14 days?: No Do you have a sore throat?: Yes Do you have a cough?: Yes Do you have any weakness?: Yes Do you have any diarrhea?: Yes Are you experiencing any unusual bleeding?: No Do you have any muscle aches/pain?: No Do you have any abdominal pain?: No Are you experiencing loss of taste or smell?: No Other Medical History Have you received the Flu Vaccine for this season: No Have you received the Pneumonia Vaccine: No ROS Obtained: Yes All systems reviewed & no additional complaints except as documented Physical Exam General General appearance: alert and in no apparent distress Eye Eye exam: Present conjunctival redness and conjunctival injection (right eye ) Respiratory Respiratory exam: Present normal lung sounds bilaterally; Absent respiratory distress, wheezes, stridor, accessory muscle use or prolonged expiratory phase Cardiovascular Cardiovascular exam: Present regular rate Neurological Exam Neurological exam: Present alert and oriented X3 Medical Decision Making Medical Records Screening: Per USPSTF and CDC recommendations, given the prevalence of disease in our region, it is our hospital?s policy to screen for HIV and viral Hepatitis for all patients aged 18 and over and those with ongoing risk factors. Sukhdeep Inquiry Pt receiving controlled substance: No Vital Signs: 11/28/24 18:39 Temperature 99.4 F Temperature Source Oral Pulse Rate [Left Radial] 102 H Respiratory Rate 16 Blood Pressure [Right Arm] 162/84 H Blood Pressure Mean [Right Arm] 110 02 Sat by Pulse Oximetry 98 Oxygen Delivery Method Room Air Orders (Tests/Meds): ED MEDICATIONS Discontinued Medications Generic Name Dose Route Start Last Admin Trade Name Ravi PRN Reason Stop Dose Admin Albuterol/Ipratropium 3 ml 11/28/24 18:53 Ipratropium/Albuterol 3 Ml Neb IH 11/28/24 18:54 ONCE ONE Dexamethasone 10 mg 11/28/24 18:53 Dexamethasone 1mg/1ml Intensol 10ml Udc (Er) PO 11/28/24 18:54 ONCE ONE Ketorolac Tromethamine 30 mg 11/28/24 18:53 Ketorolac 30mg/Ml Vial IM 11/28/24 18:54 ONCE ONE ORDERS Category Date Time Status Chest XR 2 view (NOT portable) [XR chest 2V] Stat Exams 11/28/24 18:53 Taken Hep C Ab with Reflex to RNA Stat Lab 11/28/24 18:56 Ordered Rapid PCR Covid and Flu A/B Stat Lab 11/28/24 18:55 Ordered Medical Decision Narrative: 39-year-old with 4 days of viral symptoms. Exam is largely nonfocal but he has a history of wheezing and increased cough and sputum production probably has underlying COPD but I am not making that formal diagnosis today we will refer him to pulmonology. He claims that he has not been diagnosed with that but there is documentation potentially in the past. Nonetheless we will give him steroids and breathing treatments and get a chest x-ray to rule out any pneumonia. Swab for COVID and flu have been administered he will also get Toradol and dexamethasone and symptomatic care. Medications administered chest x-ray performed which I personally interpreted which shows no focal consolidation or other abnormalities. Patient discharged in stable condition with supportive care discussed. Return precautions emphasized he will follow-up with her dye beck reel operator. Critical Care Critical Care Time Critical Care Time: No
[2024-11-28] MEDS: DEXAMETHASONE 1MG/1ML INTENSOL 10ML UDC (ER) 10 MG PO (19:26)
[2024-11-28] MEDS: KETOROLAC 30MG/ML VIAL 30 MG IM (19:26)
[2024-11-28] MEDS: IPRATROPIUM/ALBUTEROL 3 ML NEB IH (19:30)
[2024-11-28 19:38] VITALS: BP 132/72; PULSE 99; RESP 20; TEMP 37.4; O2SAT 98
== END 2024-11-28 19:41 | disposition home or self-care (01) ==
PROVIDERS: Emergency Provider Student in an Organized Health Care Education/Training Program; PCP Internal Medicine
DX: H10.31 Unspecified acute conjunctivitis, right eye (principal); R59.0 Localized enlarged lymph nodes; J45.909 Unspecified asthma, uncomplicated; R05.8 Other specified cough; R53.1 Weakness; R06.02 Shortness of breath; M79.10 Myalgia, unspecified site; R50.9 Fever, unspecified; J02.9 Acute pharyngitis, unspecified; F17.210 Nicotine dependence, cigarettes, uncomplicated; Z71.6 Tobacco abuse counseling
CPT/HCPCS: 71046; 96372; 99284; J1885; J7620

== ENCOUNTER 2024-12-04 19:20 | Outpatient (CLI) | payer SELFPAY ==
[2024-12-04 19:36] LABS: Coronavirus 19, PCR Not Detected (NotDetected); Influenza A, PCR Not Detected (NotDetected); Influenza B, PCR Not Detected (NotDetected)
== END 2024-12-04 23:59 | disposition home or self-care (01) ==
LOC: LAB.DROPOF 19:20
PROVIDERS: PCP Family Medicine; Visit Provider Family Medicine
DX: J02.9 Acute pharyngitis, unspecified (principal); R68.89 Other general symptoms and signs
CPT/HCPCS: 87636

== ENCOUNTER 2025-01-11 17:07 | Emergency (ER) | payer SELFPAY ==
[2025-01-11 17:12] VITALS: BP 153/94; PULSE 96; RESP 18; TEMP 37.1; O2SAT 100; BMI 35.5
[2025-01-11 17:28] LABS: Coronavirus 19, PCR Not Detected (NotDetected); Influenza A, PCR Not Detected (NotDetected); Influenza B, PCR Not Detected (NotDetected)
[2025-01-11 18:44] VITALS: RESP 18; O2SAT 100
--- NOTE | 2025-01-11 18:47 | HMH.EDGENADL ---
Discharge Plan Disposition Patient Disposition: Home, Self-Care Condition: Good Prescriptions Prescriptions: New prednisone 20 mg tablet 40 mg PO DAILY 4 Days Qty: 8 0RF azithromycin 500 mg tablet 500 mg PO DAILY 3 Days Qty: 3 0RF migcoplvetwkqcc-xcmhueczj-VB [Bromfed DM] 2-30-10 mg/5 mL syrup 5 ml PO Q6H PRN (Reason: cold symptoms) Qty: 118 0RF ondansetron 4 mg tablet,disintegrating 4 mg PO Q8H PRN (Reason: nausea and vomiting) 4 Days Qty: 12 0RF No Action albuterol sulfate 90 mcg/actuation HFA aerosol inhaler 4 inh inhalation Q4H PRN (Reason: shortness of breath or wheezing) Qty: 8.5 3RF Rx Instructions: 4 puffs every 4 hours for 48 hours then as needed for shortness of breath or wheezing following gabapentin 600 mg tablet 600 mg PO TID 30 Days Qty: 90 1RF lisinopril 10 mg tablet 10 mg PO DAILY Qty: 30 2RF quetiapine [Seroquel] 200 mg tablet 400 mg PO DAILY 30 Days Qty: 60 3RF Referrals Follow up/Referrals: Julianne Stephens APRN [Primary Care Provider] - See instructions Activity Restrictions/Add. Instructions Additional Instructions/Restrictions: Please bulk picker your prescriptions at the pharmacy and take them as prescribed. Take Tylenol and ibuprofen every 4-6 hours as needed for pain/fever. Return to the emergency department for new or worsening symptoms. Clinical Impressions Clinical Impression: Acute exacerbation of chronic obstructive pulmonary disease, Viral URI with cough Stand Alone Forms Stand Alone Forms: Work/School Release Instructions Patient Instructions: DI for Chronic Obstructive Pulmonary Disease, DI for Viral Upper Respiratory Infection -- Adult Print Language Print Language: Macedonian Discharge ED Provider: Ayaka Wilkins General Adult HPI General Chief complaint: Upper Respiratory Infection Stated complaint: lightheaded,congestion-head,chest,sore throat Time Seen by Provider: 01/11/25 18:47 Mode of Arrival: Ambulatory Source of Information: Patient Limitations: No Limitations Description of Symptoms (Recalled from ER Triage Doc. by RN): Pt states woke up with a sore throat this AM, has nasal congestion and body aches. History of Present Illness HPI narrative: This patient is a 39-year-old male with a history of COPD presenting to the emergency department for evaluation with concern for cough, congestion, shortness of breath, and bodyaches that started today. No other symptoms noted. Related Data Previous Rx's ?Medication ?Instructions ?Recorded albuterol sulfate 90 mcg/actuation 4 inh inhalation Q4H PRN shortness 12/04/24 aerosol inhaler of breath or wheezing #8.5 grams gabapentin 600 mg tablet 600 mg PO TID 30 days #90 tabs 12/04/24 lisinopril 10 mg tablet 10 mg PO DAILY #30 tabs 12/04/24 quetiapine 200 mg tablet (Seroquel) 400 mg (2 x 200 mg) PO DAILY sleep 12/04/24 30 days #60 tabs azithromycin 500 mg tablet 500 mg PO DAILY 3 days #3 tabs 01/11/25 ofquthvsrobfszf-tvgtgumrhuvxyna-BK 5 ml PO Q6H PRN cold symptoms #118 01/11/25 2 mg-30 mg-10 mg/5 mL oral syrup mL (Bromfed DM) ondansetron 4 mg disintegrating 4 mg PO Q8H PRN nausea and 01/11/25 tablet vomiting 4 days #12 tabs prednisone 20 mg tablet 40 mg (2 x 20 mg) PO DAILY 4 days 01/11/25 #8 tabs Allergies Allergy/AdvReac Type Severity Reaction Status Date / Time erythromycin base Allergy Intermediate Rash Verified 01/11/25 18:46 Penicillins Allergy Intermediate Rash Verified 01/11/25 18:46 [facility] Disclaimer: The information contained in this section may have been updated after the patient was seen, as this information can be updated by other users. Medical History Chronic bronchitis with wheezing Wheezing Cough Dyspnea Pharyngitis Pharyngitis Overdose History of peritonsillar abscess Cervical strain, acute Dog bite Sinusitis Nausea vomiting and diarrhea Acute internal derangement of knee Dizziness Alcohol use disorder Strep pharyngitis Tonsillitis Peritonsillar abscess Fall Bronchitis Laceration Head contusion Family History Other No significant family history Social History Smoking Status: Current every day smoker tobacco type: cigarettes packs per day: 1 second hand exposure: No alcohol intake: current alcohol intake frequency: holidays/special occasions only substance use type: marijuana current occupational status: employed Travel in the last 8 weeks: None household members: family housing: house 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 Have you lived/traveled outside US in past 30 days?: No Contact w/someone who lives/traveled outside US past 30 days?: No Exposure to someone with infectious disease in past 14 days?: No Do you have a fever (greater than 100.4 F or 38 C)?: Yes Have you tested positive for COVID-19: No Exposed to someone with COVID-19 in past 14 days?: No Do you have a sore throat?: Yes Do you have a cough?: Yes Do you have any weakness?: Yes Do you have any diarrhea?: No Are you experiencing any unusual bleeding?: No Do you have any muscle aches/pain?: No Do you have any abdominal pain?: No Are you experiencing loss of taste or smell?: No Other Medical History Have you received the Flu Vaccine for this season: No Have you received the Pneumonia Vaccine: No ROS Obtained: Yes All systems reviewed & no additional complaints except as documented Physical Exam General General appearance: alert and in no apparent distress Head Head exam: atraumatic and normocephalic Eye Eye exam: Present normal appearance, PERRL and EOMI ENT ENT exam: Present normal exam, normal oropharynx, mucous membranes moist and normal external ear exam Neck Neck exam: Present normal inspection, full ROM and trachea midline; Absent tenderness Chest Chest inspection: Present normal inspection and symmetric chest wall rise; Absent tenderness Respiratory Respiratory exam: Present wheezes and other (Wheezes, right greater than left); Absent respiratory distress, stridor or accessory muscle use Cardiovascular Cardiovascular exam: Present regular rate and normal rhythm Abdominal Exam Abdominal exam: Present soft; Absent distention, tenderness or guarding Extremities Exam Extremities exam: Present normal inspection, full ROM and normal capillary refill; Absent tenderness or edema Back Exam Back exam: Present normal inspection and full ROM; Absent tenderness Neurological Exam Neurological exam: Present alert, oriented X3, CN II-XII intact and normal gait; Absent motor sensory deficit Psychiatric Psychiatric exam: Present normal affect and normal mood Skin Skin exam: Present warm and dry Medical Decision Making Medical Records Medical records reviewed: Yes I reviewed the patient's medical records. Screening: Per USPSTF and CDC recommendations, given the prevalence of disease in our region, it is our hospital?s policy to screen for HIV and viral Hepatitis for all patients aged 18 and over and those with ongoing risk factors. Sukhdeep Inquiry Pt receiving controlled substance: No Vital Signs: 01/11/25 17:12 01/11/25 18:44 01/11/25 19:14 Temperature 98.7 F 98.6 F Temperature Source Oral Tympanic Pulse Rate 98 H Pulse Rate [Right] 96 H Respiratory Rate 18 18 18 Blood Pressure 156/97 H Blood Pressure [Right Arm] 153/94 H Blood Pressure Mean [Right Arm] 113 Blood Pressure Source Automatic Cuff Blood Pressure Source [Right Arm] Automatic Cuff Blood Pressure Position Sitting Blood Pressure Position [Right Arm] Sitting 02 Sat by Pulse Oximetry 100 100 Oxygen Delivery Method Room Air Room Air Room Air Lab Data Lab results reviewed: Yes I reviewed the patient's lab results. Lab Results 01/11/25 17:15: SARS-CoV-2 (PCR) Not detected, Influenza A Untype (PCR) Not detected, Influenza Type B (PCR) Not detected Orders (Tests/Meds): ORDERS Category Date Time Status Rapid PCR Covid and Flu A/B Stat Lab 01/11/25 17:15 Completed Medical Decision Narrative: In summary, this patient is a 39-year-old male presenting to the Emergency Department for evaluation of cough, congestion, body aches that started today. Differential diagnoses considered include but are not limited to viral syndrome, pneumonia, respiratory failure, COPD exacerbation. Ruling out the most morbid conditions drove assessment. It should be noted patient's history includes COPD and obesity which are not at goal therapy. This complicates all aspects of care by increasing patient's risk for morbidity. On exam, the patient is well-appearing with no increased work of breathing. Vitals are reassuring. He is negative for COVID and flu based on swab that was obtained here. I considered obtaining basic lab evaluation as well as chest x-ray, however exam is reassuring with no significantly increased work of breathing and I do not feel that this is indicated as it would likely not change over. He does have some wheezing, right greater than left. Will treat as COPD exacerbation in the setting of likely viral upper respiratory infection. Patient was discharged with prescriptions for prednisone, azithromycin. He was discharged after all questions were answered with strict return precautions and instructions for close follow-up with primary care. Critical Care Critical Care Time Critical Care Time: No
--- NOTE | 2025-01-11 18:48 | PC.NURSE ---
Franky KOHLER to triage to assess patient.
[2025-01-11 19:14] VITALS: BP 156/97; PULSE 98; RESP 18; TEMP 37
== END 2025-01-11 19:15 | disposition home or self-care (01) ==
PROVIDERS: Emergency Provider Emergency Medicine; PCP Family Medicine
DX: J06.9 Acute upper respiratory infection, unspecified (principal); J44.1 Chronic obstructive pulmonary disease with (acute) exacerbation; R06.02 Shortness of breath; R05.9 Cough, unspecified; R09.81 Nasal congestion; M79.10 Myalgia, unspecified site; F17.210 Nicotine dependence, cigarettes, uncomplicated
CPT/HCPCS: 87636; 99283

== ENCOUNTER 2025-05-07 10:03 | Outpatient (CLI) | payer OTHER, SELFPAY ==
[2025-05-07 18:43] LABS: Basophils # 0.1 K/mm3 (0-0.2); Basophils % 0.6 % (0.1-2.0); Eosinophils # 0.4 Kmm3 (0.0-0.4); Hematocrit 53.8 % (42.0-52.0); Immature Granulocytes # 0.07 10^3uL; Immature Granulocytes % 0.4 %; Lymphocytes # 2.3 K/mm3 (0.7-4.5); Lymphocytes % 12.9 % (10-50); Mean Corpuscular HGB Conc 33.8 g/dL (31.8-35.4); Mean Corpuscular Hemoglobin 32.2 pg (27.0-31.2); Mean Corpuscular Volume 95.2 fl (80-94); Mean Platelet Volume 11.4 fl (7.4-10.4); Monocytes # 0.9 K/mm3 (0.1-1.0); Monocytes % 5.1 % (1.7-9.3); Neutrophils # 14.1 K/mm3 (1.8-7.8); Nucleated Red Blood Cells # 0 10^3/uL; Nucleated Red Blood Cells % 0 %; Platelet Count 269 K/mm3 (142-424); Red Blood Count 5.65 M/mm3 (4.60-6.20); Red Cell Distribution Width 13.7 % (11.5-17.5); Red Cell Distribution Width-SD 48.3 fL; White Blood Count 17.9 K/mm3 (4.8-10.8)
[2025-05-07 19:10] LABS: Hemoglobin 18.2 g/dL (14.1-18.0)
[2025-05-07 19:34] LABS: Albumin Level 4.2 g/dl (3.5-5.0); Albumin/Globulin Ratio 1.3 (1.1-1.8); Alkaline Phosphatase 98 U/L (38-126); Anion Gap 9.2 mEq/L (5-15); Aspartate Amino Transferase 31 U/L (17-59); Bilirubin,Total 1.8 mg/dl (0.2-1.3); Blood Urea Nitrogen 7 mg/dl (9-20); Calcium 9.5 mg/dl (8.4-10.2); Carbon Dioxide 25 mmol/L (22.0-30.0); Chloride 107 mmol/L (98-107); Cholesterol 156 mg/dl (140-200); Estimated Glomerular Filt Rate 108 ml/min (>60); GFR (African American) 131 ML/MIN (>60); Globulin 3.2 g/dL (1.3-3.2); Glucose 95 mg/dl (74-100); Potassium 4.2 mmoL/L (3.5-5.1); Sodium 137 mmol/L (136-145); Total Protein,Serum 7.4 g/dl (6.3-8.2); Triglycerides 91 mg/dl (30-150); VLDL Cholesterol 18 mg/dL (0-40)
[2025-05-07 19:35] LABS: Alanine Aminotransferase 39 U/L (12-78); Chol/HDL Ratio 5.2 (1-3.5); HDL Cholesterol 30 mg/dl (40-60)
[2025-05-07 19:45] LABS: Direct LDL Cholesterol 93.59 mg/dL (100-129)
[2025-05-07 19:50] LABS: 25-OH Vitamin D, Total 19.1 ng/mL (30-100)
[2025-05-07 20:03] LABS: Thyroid Stimulating Hormone 1.75 uIU/mL (0.465-4.68)
[2025-05-07 20:13] LABS: Hemoglobin A1C 5.3 % (4.0-6.0)
[2025-05-07 20:23] LABS: HIV Combo NEGATIVE (Negative)
[2025-05-07 20:29] LABS: Hepatitis C Ab Qual. W/ RFX NEGATIVE (Negative)
--- OUTSIDE RECORDS SUMMARY | 2025-05-08 11:02 | XMS_ITS | Clinical Summary ---
Author Organization [facility] Address [address] [place] [address] Phone Care Team Providers Care Oracle Fusion Middleware Architect Name Role Phone Tammy Danielle MD, Harold Primary Care Provider + Allergies Active Allergy Reactions Criticality Noted Date Comments Erythromycin Anaphylaxis High 03/07/2021 Penicillins Anaphylaxis High 03/07/2021 Medications trazodone HCl (TRAZODONE ORAL) Take by mouth. Active oxycodone HCl/acetaminophe n (PERCOCET ORAL) Take by mouth. Active VRAYLAR 3 mg Oral Capsule 05/06/2021 Active gabapentin (NEURONTIN) 300 mg Oral Capsule 05/05/2021 Act oren QUEtiapine (SEROQUEL) 100 mg Oral Tablet 05/06/2021 Acti ve zolpidem (AMBIEN) 10 mg Oral Tablet 05/16/2021 Active Active Problems No known active problems Immunizations Immunization Administration Dates Next Due Tdap 05/22/2021 Surgical History Surgery Date Site/Laterality Comments CHOLECYSTECTOMY MANDIBLE FRACTURE SURGERY Social History Tobacco Use Types Packs/Day Years Used Date Smoking Tobacco: Every Day Cigarettes Smokeless Tobacco: Never Alcohol Use Standard Drinks/Week Comments Never 0 (1 standard drink = 0.6 oz pur e alcohol) AUDIT-C Answer Date Recorded Q1: How often do you have a drink containing alc ohol? Never 03/13/2021 Average Number of Drinks Not on file 021 Frequency of Binge Drinking Not on file 02/21 Sex and Gender Information Value Date Recorded Sex Assigned at Not on file Legal Sex Male 10:03 AM EDT Gender Identity Not on file Sexual Orientation Not on file Obstetrics History Last Filed Vital Signs Vital Sign Reading Time Taken Comments Blood Pressure 148/79 05/22/2021 7:23 PM EDT Pulse 77 05/22/2021 7:23 PM EDT Temperature 37.2 C (99 F) 05/22/2021 4:52 PM EDT Respiratory Rate 18 05/22/2021 7:23 PM EDT Oxygen Saturation 99% 05/22/2021 7:23 PM EDT Inhaled Oxygen Concentration - - Weight 96.2 kg (212 lb) 05/22/2021 4:52 PM EDT Height 182.9 cm (6') 05/22/2021 4:52 PM EDT Body Mass Index 28.75 05/22/2021 4:52 PM EDT Plan of Treatment Health Maintenance Due Date Last Done Comments Annual Wellness Exam 1989 COVID-19 Vaccine (2023-2 5 season) 2024 Influenza Vaccine (Season Ended) 2025 DTaP/TDaP/Td (4 - Td or Tdap) 05/22/2031, 07/26/2019, 06/26/2002 Hepatitis B Vaccine Completed 03/14/1999, 09/13/1998, 08/09/1998 Meningococcal B Vaccine Aged Out No l onger eligible based on patient's age to complete this topic Pneumococcal Vaccine 0-49 Aged Out No longer eligible based on patient's age to complete this topic Goals Goal Patient Goal Type Associated Problems Recent Progress Patient-Stated? Author Maintain a healthy diet, exercise regularly and maintain an ideal body weight General No Yolanda Lobo, A Insurance [facility] [id number] [address] [facility] [id number] [facility] Care Teams Oracle Fusion Middleware Architect Relationship Specialty Start Date End Date Scot Munoz MD [address] [place] [phone] PCP - General Family Medicine 09/21/14
[2025-05-09 08:17] LABS: Hepatitis B Surface Antigen Negative (Negative)
== END 2025-05-07 23:59 | disposition home or self-care (01) ==
LOC: LAB.DROPOF 05-08 10:54
PROVIDERS: PCP Family Medicine; Visit Provider Family Medicine
DX: E55.9 Vitamin D deficiency, unspecified (principal); I10 Essential (primary) hypertension; Z11.59 Encounter for screening for other viral diseases; Z13.1 Encounter for screening for diabetes mellitus
CPT/HCPCS: 80053; 80061; 82306; 83036; 84443; 85025; 86803; 87340; 87389

== ENCOUNTER 2025-05-29 23:08 | Emergency (ER) | payer OTHER, SELFPAY ==
[2025-05-29 23:45] VITALS: BP 150/87; PULSE 86; O2SAT 97
[2025-05-29 23:48] VITALS: BP 150/87; PULSE 85; RESP 16; TEMP 36.8; O2SAT 98; BMI 36.1
--- OUTSIDE RECORDS SUMMARY | 2025-05-29 23:56 | XMS_ITS | Clinical Summary ---
Author Organization [facility] Address [address] [place] [address] Phone Care Team Providers Care Rn Patient Care Name Role Phone Tammy Danielle MD, Harold [...] Comments Annual Wellness Exam 1989 COVID-19 Vaccine ( - 2023-2 5 season) 2024 Influenza Vaccine (#1) 2025 DTaP/TDaP/Td (4 - Td or Tdap) [...] weight General No Yolanda Lobo, A Insurance [facility] [id number] [address] [facility] [id number] [facility] Care Teams Rn Patient Care Relationship Specialty Start Date End Date Scot Munoz MD [address] [place] [phone] PCP - General Family Medicine 09/21/14
[2025-05-30 00:01] VITALS: BP 133/87; PULSE 83; O2SAT 97
[2025-05-30 00:30] VITALS: BP 146/91; PULSE 72; O2SAT 96
--- NOTE | 2025-05-30 00:47 | XR_ITS ---
PROCEDURE INFORMATION: Exam: XR Chest Exam date and time: 05/30/2025 1:45 AM Age: 39 years old Clinical indication: Cough; Additional info: Productive cough, copd TECHNIQUE: Imaging protocol: Radiologic exam of the chest. Views: 2 views. COMPARISON: CR XR CHEST 2V 11/28/2024 6:49 PM FINDINGS: Lungs: Unremarkable. No consolidation. Right upper lung zone calcified granuloma. Pleural spaces: Unremarkable. No pleural effusion. No pneumothorax. Heart/Mediastinum: Unremarkable. No cardiomegaly. Bones/joints: Unremarkable. IMPRESSION: No acute findings. No infiltration identified.
[2025-05-30] MEDS: DOXYCYCLINE HYCL 100 MG TABLET PO (01:04)
[2025-05-30] MEDS: IPRATROPIUM/ALBUTEROL 3 ML NEB 9 ML IH (01:18)
[2025-05-30] MEDS: AEROCHAMBER/OPTIHALER 1 UNIT MC (01:18)
[2025-05-30] MEDS: ALBUTEROL-HFA 90MCG/PUFF INHALER 8GM 2 PUFF IH (01:18)
[2025-05-30 01:46] VITALS: PULSE 77
--- NOTE | 2025-05-30 02:36 | ED_ITS ---
Discharge Plan Disposition Patient Disposition: Home, Self-Care Condition: Good Prescriptions Prescriptions: New prednisone 20 mg tablet 40 mg PO DAILY 3 Days Qty: 6 0RF doxycycline hyclate 100 mg capsule 100 mg PO BID 5 Days Qty: 10 0RF No Action clindamycin HCl [Cleocin HCl] 300 mg capsule 300 mg PO Q8H 7 Days Qty: 21 0RF gabapentin 600 mg tablet 600 mg PO TID 30 Days Qty: 90 1RF lisinopril 10 mg tablet 10 mg PO DAILY Qty: 30 2RF azelastine 137 mcg (0.1 %) spray,non-aerosol 137 mcg intranasal BID Qty: 30 2RF quetiapine [Seroquel] 200 mg tablet 400 mg PO DAILY 30 Days Qty: 60 3RF albuterol sulfate 90 mcg/actuation HFA aerosol inhaler 4 inh inhalation Q4H PRN (Reason: shortness of breath or wheezing) Qty: 8.5 3RF Rx Instructions: 4 puffs every 4 hours for 48 hours then as needed for shortness of breath or wheezing following Trelegy Ellipta 100-62.5-25 mcg blister with device 1 inh inhalation DAILY Qty: 60 2RF Trelegy Ellipta 100-62.5-25 mcg blister with device 0RF Referrals Follow up/Referrals: Provider,Referral, MD [Primary Care Provider, Medical] - See instructions Activity Restrictions/Add. Instructions Additional Instructions/Restrictions: You were evaluated in the ER and I believe to be appropriate for discharge at this time. Take the prescribed antibiotics and steroids as directed. Do not skip doses, do not stop taking them early. Use the provided albuterol inhaler 2 puffs every 6 hours if needed for shortness of breath, wheezing. Make an appointment with your primary care doctor for reevaluation in 2 to 3 days. Follow-up with ENT as scheduled for cyst removal. Return to the ER with any new, worsening, or otherwise concerning symptoms. Clinical Impressions Clinical Impression: COPD exacerbation, Productive cough, Blood-streaked sputum Stand Alone Forms Stand Alone Forms: Work/School Release Print Language Print Language: Japanese Discharge ED Provider: Makenna Gomez Adult HPI General Chief complaint: PAIN Stated complaint: cyst in throat, coughing with blood Time Seen by Provider: 05/30/25 00:34 Mode of Arrival: Ambulatory Source of Information: Patient Description of Symptoms (Recalled from ER Triage Doc. by RN): Pt presents to ED for throat pain. Pt states he has a cyst that is getting removed on 06/[address] Allred. Pt states he's been coughing and the cyst is bleeding and uncomfortable. Pt rates pain 05/31. Pt is A&O*4. History of Present Illness HPI narrative: 39-year-old male presents to the ER complaining of cough, blood-streaked sputum, and left throat cyst that is causing him discomfort. Patient reports he was recently found to have a cyst in the throat and that he is scheduled to have it removed on the with ENT. He states this was identified about a week ago but for the last 2-3 weeks he has been having cough. He states a does have a history of seasonal allergies but usually just at the beginning of spring and states he is not currently on anything for allergies or for cough. He states he can feel mucus start to build up on the cyst and that causes more of a tickle in his throat. He states he has some discomfort but is not experiencing significant pain unless he coughs. He states when he coughs it feels irritated. He states he has had very small blood-streaked sputum mixed with mucus today that he believes is from the cyst being irritated when he coughs. He has no difficulty breathing or swallowing, does not feel like the cyst is growing or worse. He states he is mostly concerned about the cough irritating the cyst and having a small amount of blood in it. He has not coughing up renetta blood or clots. He states his muscles are sore from coughing but he does not otherwise have chest pain, no difficulty breathing or oxygenating. Patient reports he does smoke and has been cutting back but since his girlfriend has not stopped, he has not stopped. He states he does have a diagnosis of COPD but is not able to afford his Trelegy inhaler and does not have any other inhalers or breathing treatments at home so he has not been taking anything like this. He also reports he sometimes coughs so hard that he gags. Related Data Previous Rx's ?Medication ?Instructions ?Recorded albuterol sulfate 90 mcg/actuation 4 inh inhalation Q4 H PRN shortness 05/07/25 aerosol inhaler of breath or wheezing #8.5 g dixie azelastine 137 mcg (0.1 %) nasal 137 mcg (0.137 mL) in tranasal BID 05/07/25 spray #30 mL clindamycin HCl 300 mg capsule 300 mg PO Q8H 7 days #2 1 caps 05/07/25 (Cleocin HCl) fluticasone fur. 100 mcg-umeclid 1 inh inhalation MAGGIE Y #60 ea 05/07/25 62.5 mcg-vilant 25 mcg inhalat.powder (Trelegy Ellipta) gabapentin 600 mg tablet 600 mg PO TID 30 days #90 ta bs 05/07/25 lisinopril 10 mg tablet 10 mg PO DAILY #30 tabs 04/22 05/16 quetiapine 200 mg tablet (Seroquel) 400 mg (2 x 200 mg ) PO DAILY sleep 05/07/25 30 days #60 tabs doxycycline hyclate 100 mg capsule 100 mg PO BID 5 day s #10 caps 05/30/25 prednisone 20 mg tablet 40 mg (2 x 20 mg) PO DAILY 3 days 05/30/25 #6 tabs Allergies Allergy/AdvReac Type Severity Reaction Status Date / Time erythromycin base Allergy Intermediate Rash Verified 05/23/25 13:33 Penicillins Allergy Intermediate Rash Verified 05/23/25 13:33 [facility] Disclaimer: The information contained in this section may have been updated after the patient was seen, as this information can be updated by other users. Medical History (Updated 05/30/25 @ 02:34 by Makenna Gomez MD) Hypertrophy of tonsils Back pain Right foot pain History of ankle sprain Metatarsalgia, right foot Macrocytosis Plantar fasciitis Dislocation of right shoulder joint Neck muscle spasm Dental infection Bronchitis Adenopathy, cervical Conjunctivitis of right eye Viral illness Acute exacerbation of chronic obstructive pulmonary disease Viral URI with cough Chronic bronchitis with wheezing Wheezing Cough Dyspnea Pharyngitis Pharyngitis Overdose History of peritonsillar abscess Cervical strain, acute Dog bite Sinusitis Nausea vomiting and diarrhea Acute internal derangement of knee Dizziness Alcohol use disorder Strep pharyngitis Tonsillitis Peritonsillar abscess Fall Bronchitis Laceration Head contusion Family History Other No significant family history Social History Smoking Status: Current every day smoker tobacco type: cigarettes packs per day: 1 second hand exposure: No alcohol intake: current alcohol intake frequency: holidays/special occasions only substance use type: marijuana current occupational status: employed Travel in the last 8 weeks?: None household members: family housing: house 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 Do you have a sore throat?: Yes Do you have a cough?: Yes Are you experiencing any unusual bleeding?: Yes Other Medical History Have you received the Flu Vaccine for this season: No Have you received the Pneumonia Vaccine: No ROS Obtained: Yes Systems reviewed as appropriate & no additional complaints except as documented Per HPI Physical Exam General General appearance: alert and in no apparent distress Head Head exam: atraumatic and normocephalic Eye Eye exam: Present PERRL and EOMI ENT ENT exam: Present normal oropharynx (No tonsillomegaly, erythema, or exudates, airway patent, tolerating secretions) and mucous membranes moist Neck Neck exam: Present normal inspection and full ROM; Absent lymphadenopathy Chest Chest inspection: Present symmetric chest wall rise Respiratory Respiratory exam: Present wheezes (Mild end expiratory without other adventitious sounds) and other (Saturating 96 to 98% on room air); Absent respiratory distress, stridor or accessory muscle use Cardiovascular Cardiovascular exam: Present regular rate and normal rhythm Abdominal Exam Abdominal exam: Present soft; Absent distention or tenderness Extremities Exam Extremities exam: Present full ROM Neurological Exam Neurological exam: Present alert and oriented X3; Absent motor sensory deficit Psychiatric Psychiatric exam: Present normal affect and normal mood Skin Skin exam: Present warm and dry Medical Decision Making Medical Records Medical records reviewed: Yes I reviewed the patient's medical records. Screening: Per USPSTF and CDC recommendations, given the prevalence of disease in our region, it is our hospital?s policy to screen for HIV and viral Hepatitis for all patients aged 18 and over and those with ongoing risk factors. MR Comment: ENT note from 05/23/2025 demonstrates patient has a history of frequent strep throat and occasional abscess, patient was offered tonsillectomy and adenoidectomy which patient wants to pursue according to the jose rafael. Sukhdeep Inquiry Pt receiving controlled substance: No Vital Signs: 05/29/25 23:45 05/29/25 23:48 05/30/25 00:01 Temperature 98.2 F Temperature Source Oral Pulse Rate 86 83 Pulse Rate [Left] 85 Respiratory Rate 16 Blood Pressure 150/87 H 133/87 Blood Pressure [Right Arm] 150/87 H Blood Pressure Mean [Right Arm] 108 02 Sat by Pulse Oximetry 97 98 97 Oxygen Delivery Method Room Air 05/30/25 00:30 05/30/25 01:46 Temperature Temperature Source Pulse Rate 72 77 Pulse Rate [Left] Respiratory Rate Blood Pressure 146/91 H Blood Pressure [Right Arm] Blood Pressure Mean [Right Arm] 02 Sat by Pulse Oximetry 96 Oxygen Delivery Method Orders (Tests/Meds): ED MEDICATIONS Discontinued Medications Generic Name Dose Route Start Last Admin Trade Name Traeq PRN Reason Stop Dose Admin Albuterol Sulfate 2 puff 05/30/25 00:48 05/30/25 01:18 Albuterol-Hfa 90mcg/Puff Inhaler 8gm 05/30/25 00:49 2 puff ONCE ONE Administration Albuterol/Ipratropium 9 ml 05/30/25 00:47 05/30/25 01:18 Ipratropium/Albuterol 3 Ml Neb 05/30/25 00:48 9 ml ONCE ONE Administration Doxycycline Hyclate 100 mg 05/30/25 00:49 05/30/25 01:04 Doxycycline Hycl 100 Mg Tablet PO 05/30/25 00:50 100 mg ONCE ONE Administration Miscellaneous 1 unit 05/30/25 00:47 05/30/25 01:18 Aerochamber/Optihaler MC 05/30/25 00:48 1 unit ONCE ONE Administration Prednisone 40 mg 05/30/25 00:47 05/30/25 01:04 Prednisone 20mg Tab PO 05/30/25 00:48 40 mg ONCE ONE Administration ORDERS Category Date Time Status CXR 2 view (NOT portable) [XR chest 2V] Stat Exams 05/30/25 00:47 Completed Medical Decision Narrative: In summary, this 39-year-old male with comorbidities described in the HPI presents to the emergency department today with persistent cough which is productive and occasionally produces slightly blood-streaked sputum, cough is causing irritation of a cyst in the throat which on review of records is actually chronic disease of the tonsils and adenoids. On initial evaluation patient is hemodynamically stable, afebrile, airway widely patent with no stridor, no difficulty tolerating secretions, no lymphadenopathy, no significant tonsillomegaly, all structures midline, no exudate, lungs with mild end expiratory wheezing but no evidence of respiratory distress, no other adventitious sounds, remainder of exam benign. Differential diagnosis includes but is not limited to bronchitis, COPD exacerbation, postnasal drip, these are considered to be the most likely explanations for his symptoms, since patient had trace hemoptysis I did consider the possibility of PE but he has no chest pain, shortness of breath, no significant risk factors for PE. I have such low suspicion for this and that at this time I am not going to pursue it. I did consider the possibility of worsening of cyst however based on review of ENT note I do not believe this is specifically the case and have higher suspicion for bronchitis. I am also very reassured that patient has no globus sensation, difficulty breathing or swallowing. Chest x-ray was ordered to assess the lung parenchyma for bronchitis or lobar infiltrate that would indicate pneumonia. Patient received DuoNebs, steroids, doxycycline in the ER for initial treatment. I also provided the patient an albuterol inhaler which he used. On reassessment he has had significant improvement of symptoms, his cough which was persistent and hacking on arrival is significantly improved and he states he feels much better. Lungs are clear bilaterally with no remaining wheezing. Chest x-ray personally interpreted does not demonstrate lobar infiltrate or other acute intrathoracic pathology, see radiology read for final interpretation. I believe patient is appropriate for discharge at this time and he is very comfortable with this plan. Doxycycline and prednisone were prescribed for continued management of COPD exacerbation, doxycycline would also help treat bronchitis. Additionally I provided the patient the albuterol inhaler which she took home with instructions on use. Patient was given instructions on continued symptomatic monitoring and management including medication use, follow-up instructions, and strict return precautions for the ER. He requested a work note which was provided. He indicated understanding to all instructions and was discharged in stable condition. Critical Care Critical Care Time Critical Care Time: No
[2025-05-30 02:43] VITALS: BP 136/78; PULSE 85; RESP 16; TEMP 36.6; O2SAT 96
== END 2025-05-30 02:44 | disposition home or self-care (01) ==
PROVIDERS: Emergency Provider Emergency Medicine
DX: J44.1 Chronic obstructive pulmonary disease with (acute) exacerbation (principal); R04.2 Hemoptysis; F17.210 Nicotine dependence, cigarettes, uncomplicated
CPT/HCPCS: 71046; 99283

== ENCOUNTER 2025-06-15 08:36 | Outpatient (CLI) | payer OTHER, SELFPAY ==
[2025-06-15 08:21] VITALS: BMI 36.5
--- OUTSIDE RECORDS SUMMARY | 2025-06-15 08:42 | XMS_ITS | Clinical Summary ---
Author Organization [facility] Address [address] [place] [address] Phone Care Team Providers Care Auto Service Representative Name Role Phone Tammy Danielle MD, Harold [...] weight General No Yolanda Lobo, A Insurance [facility] [place] [id number] [employer] [facility] [place] [id number] [facility] Care Teams Auto Service Representative Relationship Specialty Start Date End Date Scot Munoz MD [address] [place] [phone] PCP - General Family Medicine 09/21/14
--- NOTE | 2025-06-15 09:14 | ECG_ITS ---
APPROVED REPORT Exam: Resting ECG HR:78 bpm ECG Measurements Heart Rate 78 AXES AK 153 P 48 QRSd 105 QRS 48 QT 356 T 55 QTc 389 Conclusion SINUS RHYTHM NORMAL ECG UNCONFIRMED REPORT Electronically signed by : Shukri Huff MD 06/16/2025 08:53:16
[2025-06-15 09:23] LABS: Hematocrit 46.9 % (42.0-52.0); Hemoglobin 16.1 g/dL (14.1-18.0); Immature Granulocytes % 0.3 %; Mean Corpuscular HGB Conc 34.3 g/dL (31.8-35.4); Mean Corpuscular Hemoglobin 31.2 pg (27.0-31.2); Mean Corpuscular Volume 90.9 fl (80-94); Nucleated Red Blood Cells % 0 %; Platelet Count 229 K/mm3 (142-424); Red Blood Count 5.16 M/mm3 (4.60-6.20); Red Cell Distribution Width-SD 43.7 fL; White Blood Count 10.1 K/mm3 (4.8-10.8)
[2025-06-15 09:31] LABS: Anion Gap 9.8 mEq/L (5-15); Blood Urea Nitrogen 10 mg/dl (9-20); Calcium 9.0 mg/dl (8.4-10.2); Carbon Dioxide 27 mmol/L (22.0-30.0); Chloride 106 mmol/L (98-107); Creatinine Clearance Estimated 210 mL/min (50-200); Creatinine,Serum 0.80 mg/dl (0.66-1.25); Estimated Glomerular Filt Rate 108 ml/min (>60); GFR (African American) 131 ML/MIN (>60); Glucose 104 mg/dl (74-100); Potassium 3.8 mmoL/L (3.5-5.1); Sodium 139 mmol/L (136-145)
== END 2025-06-15 23:59 | disposition home or self-care (01) ==
LOC: PREOP 08:40
PROVIDERS: Nurse Practitioner; PCP Family Medicine; Visit Provider Student in an Organized Health Care Education/Training Program
DX: Z01.810 Encounter for preprocedural cardiovascular examination (principal); Z01.812 Encounter for preprocedural laboratory examination
CPT/HCPCS: 80048; 85025; 93005

== ENCOUNTER 2025-06-20 07:20 | Day surgery (SDC) | payer OTHER, SELFPAY ==
[2025-06-15 12:53] VITALS: BMI 36.5
[2025-06-20] VITALS (10 sets, daily range): BP systolic 136–168; BP diastolic 79–93; PULSE 74–91; RESP 14–22; TEMP 36.1–36.7; O2SAT 79–95; BMI 36.5
[2025-06-20] MEDS: LACTATED RINGERS 1000ML 1,000 ML 25 ML IV (07:47)
--- NOTE | 2025-06-20 07:53 | EXP.ANES.CKL ---
[facility] Disclaimer: The information contained in this section may have been updated after the patient was seen, as this information can be updated by other users. Medical History Hypertrophy of tonsils Back pain Right foot pain History of ankle sprain Metatarsalgia, right foot Macrocytosis Plantar fasciitis Dislocation of right shoulder joint Neck muscle spasm Dental infection Bronchitis Adenopathy, cervical Conjunctivitis of right eye Viral illness Acute exacerbation of chronic obstructive pulmonary disease Viral URI with cough Chronic bronchitis with wheezing Wheezing Cough Dyspnea Pharyngitis Pharyngitis Overdose History of peritonsillar abscess Cervical strain, acute Dog bite Sinusitis Nausea vomiting and diarrhea Acute internal derangement of knee Dizziness Alcohol use disorder Strep pharyngitis Tonsillitis Peritonsillar abscess Fall Bronchitis Laceration Head contusion Surgical History History of mandibular surgery History of cholecystectomy Family History Other Family history of CVA Social History (Updated 06/20/25 @ 07:31 by Patti Reeves RN) Smoking Status: Current every day smoker tobacco type: cigarettes packs per day: 1 second hand exposure: No alcohol intake: never substance use type: marijuana current occupational status: employed Travel in the last 8 weeks?: None household members: family housing: house 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 Have you lived/traveled outside [place] in past 30 days?: No Contact w/someone who lives/traveled outside US past 30 days?: No Exposure to someone with infectious disease in past 14 days?: No Do you have a fever (greater than 100.4 F or 38 C)?: No Have you tested positive for COVID-19?: No Exposed to someone with COVID-19 in past 14 days?: No Do you have a sore throat?: No Do you have a cough?: No Do you have any weakness?: No Are you experiencing any nausea/vomitting?: No Do you have any diarrhea?: No Are you experiencing any unusual bleeding?: No Do you have any muscle aches/pain?: No Do you have any abdominal pain?: No Are you experiencing loss of taste or smell?: No [facility] Anesthesia Checklist Patient Identification Patient Identification: Arm Band and Verbal (Name & ) Structural Data Admitted From: Home Planned Operative Procedure/s: T&A Verified Documents: Surgical Consent NPO Status Verified Time NPO: 00:00 Chart Verification Results Verified: None Additional verifications Anesthesia Reactions: No Hx Blood Transfusions: No Blood Transfusion Reaction: No Airway Assessment Mallampati Score:: Class II C-Spine Mobility Assessed: Yes TMJ Mobility Assessed: Yes Dentition: Poor Dentition Neurological Assessment Level of Consciousness: Awake, Alert and Appropriate Hx Seizures: No Numbness or tingling in extremities: No Anesthesia Plan Anesthesia Risk discussed: Yes Anesthesia Plan: Verified ASA Class: II Anesthesia Type: General
[2025-06-20] MEDS: BUPIVACAINE 0.5% W/EPI 1:200,000 30ML VIAL 30 ML IJ (08:25)
--- NOTE | 2025-06-20 09:22 | SUR.OPER ---
0902- procedure end. Upon extubation bleeding was noted coming from surgical site. Pt was re-intubated at this time. See anesthesia records. Resumed surgery to stop the bleeding at 0915. 09- family notified of pt current status at this time via loreo,sr. payroll processor
--- NOTE | 2025-06-20 09:51 | P.OP_ITS ---
Date of procedure: 06/20/25 Pre-op Diagnosis:: recurrent tonsillitis, history of peritonsilar abscesses Post-op Diagnosis:: same Procedure performed:: tonsillectomy and adenoidectomy Surgeon:: Ryan Allred MD Anesthesia: JOSEA Estimated blood loss (mL): 20 Operative findings:: 3+ tonsils 1+ adenoids sigificant scarring in the superior capsule of both tonsilar fossa Operative note:: The patient was brought to the OR and laid in supine position. General anesthesia was induced. The patient was prepped and draped in the usual fashion. Their mouth was suspended with a Aixa-Miguelito mouth gag. Examination of the palate revealed no palatal clefts. The palate was elevated with a red rubber catheter. Mirror examination revealed? 1 + adenoid hypertrophy. Adenoids were taken down with the suction cautery. I then turned my attention towards the tonsils. The patient had 3+ tonsils bilaterally. First the right tonsil, and then the left tonsil were excised with Bovie cautery. Hemostasis was then achieved with suction cautery. The patient had significant scarring in the superior capsule area of both tonsilar fossa likely from his previous peritonsilar abscesses. There was a fair amount of venous oozing from the left superior pole requiring extensive cauterization to control. The patient's nose and mouth were then thoroughly irrigated and suctioned out. Marcaine-soaked tonsil balls were placed in the tonsillar fossae for local anesthetic. These were then removed. Stomach was suctioned with an OG tube. All counts were confirmed correct. They were then turned back over to anesthesia to be awoken and extubated. Immediately on extubation patient began to cough and spit out blood. We re- intubated the patient and he was resuspended. There was a clot in the left superior pole. It was irrigated out. I removed the existing scab from the fossa and re-cauterized the area. His stomach was suctioned out again with an OG. I dropped the suspension for a couple of minutes, then resuspended him, and there was no evidence of any further bleeding. He was then turned over to anesthesia to be extubated again. There was no obvious bleeding on repeat extubation. Condition: stable Disposition: PACU Complications:: immediate post operative bleed from left superior pole on extubation, requiring re-intubation and repeat cautery
--- NOTE | 2025-06-20 10:00 | P.PNANES_ITS ---
[facility] Anesthesia Record Part I Anesthesia Record I Intake, IV Amount: 800 Hydration: Adequate Estimated blood loss (mL): 100 Urine output (mL): 0 Blood Products used (#): none Blood Pressure: 160/93 SaO2: 95 Pulse Rate: 91 Airway Patency: Patent Respiratory Rate: 14 Temperature: 97.0 F Patient is:: Drowsy, Mask O2 and Stable Stable to PACU at:: 09:55
[2025-06-20] MEDS: HYDROMORPHONE 2MG/ML SYRINGE 0.5 MG IV (10:14)
--- NOTE | 2025-06-21 06:55 | EXP.ANES.II ---
[facility] Anesthesia Record Part II Anesthesia Record Part II Discharge Time: 10:56 Destination: Surgical Day Care (OP Surgery) PACU nurse assessment reviewed?: Yes Patient Condition:: Good Anesthesia Complications:: None Required reintubation at end of case for tonsillar bleed. No bleeding after extubation (2nd time) with no issues in PACU. Swallowing reflex intact?: Yes Airway Patency: Patent Cyanosis?: No Blood Pressure: 137/81 SaO2: 94 Respiratory Rate: 16 Pulse Rate: 74 Temperature: 97.0 F Mental Status: Alert & Oriented Pain level:: 0 Nausea and/or vomitting:: None Intake, IV Amount: 0 Hydration: Adequate
[2025-06-21 06:58] VITALS: BP 137/81; PULSE 74; RESP 16; TEMP 36.1; O2SAT 94
== END 2025-06-20 11:15 | disposition home or self-care (01) ==
PROVIDERS: PCP Family Medicine; Visit Provider Student in an Organized Health Care Education/Training Program
PROC: (CPT 42821; principal; 2025-06-20 09:45)
DX: J35.03 Chronic tonsillitis and adenoiditis (principal); F17.210 Nicotine dependence, cigarettes, uncomplicated; J44.9 Chronic obstructive pulmonary disease, unspecified; Z88.1 Allergy status to other antibiotic agents; Z88.0 Allergy status to penicillin; Z79.899 Other long term (current) drug therapy; Z79.51 Long term (current) use of inhaled steroids; Z79.52 Long term (current) use of systemic steroids
CPT/HCPCS: 42821; J1100; J1171; J2003; J2250; J2405; J2704; J3010; J7120

== ENCOUNTER 2025-08-13 09:56 | Emergency (ER) | payer SELFPAY ==
--- NOTE | 2025-08-13 10:05 | ED_ITS ---
<Statement entered by Hardeep Casarez MD - 08/13/25 16:33> I consulted the MICHA, and we discussed the complexity of the problems being addressed. I approved the treatment and management plan for this patient's care in the emergency department, thus performing a substantial portion of the medical decision making. Carlos Casarez MD Discharge Plan Disposition Patient Disposition: Home, Self-Care Condition: Good Prescriptions Prescriptions: New methocarbamol 750 mg tablet 750 mg PO HS Qty: 14 0RF No Action gabapentin 600 mg tablet 600 mg PO TID 30 Days Qty: 90 1RF lisinopril 10 mg tablet 10 mg PO DAILY Qty: 30 2RF azelastine 137 mcg (0.1 %) spray,non-aerosol 137 mcg intranasal BID Qty: 30 2RF quetiapine [Seroquel] 200 mg tablet 400 mg PO DAILY 30 Days Qty: 60 3RF albuterol sulfate 90 mcg/actuation HFA aerosol inhaler 4 inh inhalation Q4H PRN (Reason: shortness of breath or wheezing) Qty: 8.5 3RF Rx Instructions: 4 puffs every 4 hours for 48 hours then as needed for shortness of breath or wheezing following Trelegy Ellipta 100-62.5-25 mcg blister with device 1 inh inhalation DAILY Qty: 60 2RF Referrals Follow up/Referrals: Julianne Stephens APRN [Primary Care Provider, Family Practice] - See instructions Activity Restrictions/Add. Instructions Additional Instructions/Restrictions: Please return to the emergency department with any worsening signs or symptoms. Please utilize muscle relaxer and other anti-inflammatory medications as needed for pain. Please follow-up with your family doctor for consideration of MRI of your back if your symptoms persist. Clinical Impressions Clinical Impression: Lumbar spine strain Instructions Patient Instructions: DI for Back Strain or Sprain Print Language Print Language: Nauruan Discharge ED Provider: Hardeep Casarez General Adult HPI General Chief complaint: PAIN Stated complaint: Pain R side/back, cloudy urine, Diarrhea Time Seen by Provider: 08/13/25 09:59 Mode of Arrival: Ambulatory Source of Information: Patient and Significant Other Limitations: No Limitations History of Present Illness HPI narrative: 39-year-old male presents the emergency department with right-sided flank pain that has been ongoing for 1 month, describes it as a throbbing , pain, denies any fever chills chest pain shortness of breath nausea vomiting no abdominal pain, does have some diarrhea that has been going on for long time , he also endorses cloudy urine , for 1 week, the pain will extend down into his lateral thigh at times, denies any dysuria, denies urinary frequency, urinary hesitancy, denies any melena hematochezia hematemesis or hemoptysis, denies any recent trauma or injury per history, patient is a current everyday smoker, denies any alcohol use, denies any drug use, initial triage vitals are unremarkable. Other past medical history is consistent with COPD, bipolar 1 disorder, hypertension, previous opioid use disorder in remission, previous alcohol use disorder in remission, NUSRAT, GERD. Please note that above description of symptoms, in this electronic medical record under categorization of recalled from ER triage doctor by RN are reflective of an initial nursing assessment, however, is not reflective of my full history and physical exam that was personally taken and clarified. Consequentially, this preceding description of symptoms, which may include the patient's categorized chief complaint in the EMR, do not reflect my personal clinical impression, and the ultimate description of history of present illness and patient stated complaints should be deferred to this section of the note. Unless stated otherwise or congruent with this section of the note, additional signs, symptoms, or incongruence should be interpreted as inaccurate with my clinical impression. Onset (ago): month(s) Related Data Previous Rx's ?Medication ?Instructions ?Recorded albuterol sulfate 90 mcg/actuation 4 inh inhalation Q4 H PRN shortness 05/07/25 aerosol inhaler of breath or wheezing #8.5 g dixie azelastine 137 mcg (0.1 %) nasal 137 mcg (0.137 mL) in tranasal BID 05/07/25 spray #30 mL fluticasone fur. 100 mcg-umeclid 1 inh inhalation MAGGIE Y #60 ea 05/07/25 62.5 mcg-vilant 25 mcg inhalat.powder (Trelegy Ellipta) gabapentin 600 mg tablet 600 mg PO TID 30 days #90 ta bs 05/07/25 lisinopril 10 mg tablet 10 mg PO DAILY #30 tabs 04/22 05/16 quetiapine 200 mg tablet (Seroquel) 400 mg (2 x 200 mg ) PO DAILY sleep 05/07/25 30 days #60 tabs methocarbamol 750 mg tablet 750 mg PO HS #14 tabs 07/24 01/16 Allergies Allergy/AdvReac Type Severity Reaction Status Date / Time erythromycin base Allergy Intermediate Rash Verified 07/10/25 10:19 Penicillins Allergy Intermediate Rash Verified 07/10/25 10:19 [facility] Disclaimer: The information contained in this section may have been updated after the patient was seen, as this information can be updated by other users. Medical History Hypertrophy of tonsils Back pain Right foot pain History of ankle sprain Metatarsalgia, right foot By history and examination this is his main problem on the right foot. The DPM and Dr. Mullins both suggested an MRI of the foot. Will get this to RO other potential disorders. For now will increase his gabapentin and add duloxetine. Macrocytosis Plantar fasciitis Dislocation of right shoulder joint With chronic posterior labral tear Neck muscle spasm Dental infection Bronchitis Adenopathy, cervical Conjunctivitis of right eye Viral illness Acute exacerbation of chronic obstructive pulmonary disease Viral URI with cough Chronic bronchitis with wheezing I gave the patient a sample of the Kodinglogy inhaler. I think this patient probably should see pulmonary and have an evaluation. We have other issues to take care of before we do that. Wheezing Cough Dyspnea Pharyngitis Pharyngitis Overdose History of peritonsillar abscess Cervical strain, acute Dog bite Sinusitis Nausea vomiting and diarrhea Acute internal derangement of knee Dizziness Alcohol use disorder He has been clean for 2 years, I congratulated him on this. Strep pharyngitis Tonsillitis Peritonsillar abscess Fall Bronchitis Laceration Head contusion Surgical History Status post tonsillectomy and adenoidectomy sx date: 06/20/25 pt is 97% healed History of tonsillectomy and adenoidectomy History of oral surgery History of mandibular surgery History of cholecystectomy Family History Other Family history of CVA Social History Smoking Status: Current every day smoker tobacco type: cigarettes packs per day: 1 second hand exposure: No alcohol intake: never substance use type: marijuana current occupational status: employed Travel in the last 8 weeks?: None household members: family housing: house 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 Have you lived/traveled outside [place] in past 30 days?: No Contact w/someone who lives/traveled outside US past 30 days?: No Exposure to someone with infectious disease in past 14 days?: No Do you have a fever (greater than 100.4 F or 38 C)?: No Have you tested positive for COVID-19?: No Exposed to someone with COVID-19 in past 14 days?: No Do you have a sore throat?: No Do you have a cough?: No Do you have any weakness?: No Do you have any diarrhea?: No Are you experiencing any unusual bleeding?: No Do you have any muscle aches/pain?: No Do you have any abdominal pain?: No Are you experiencing loss of taste or smell?: No Other Medical History Have you received the Flu Vaccine for this season: No Have you received the Pneumonia Vaccine: No ROS Obtained: Yes All systems reviewed & no additional complaints except as documented Physical Exam General General appearance: alert and in no apparent distress Head Head exam: atraumatic and normocephalic Eye Eye exam: Present PERRL and EOMI ENT ENT exam: Present mucous membranes moist Neck Neck exam: Present normal inspection Chest Chest inspection: Present normal inspection and symmetric chest wall rise Respiratory Respiratory exam: Present normal lung sounds bilaterally; Absent respiratory distress Cardiovascular Cardiovascular exam: Present regular rate and normal rhythm Abdominal Exam Abdominal exam: Present soft; Absent tenderness, guarding, rebound or rigidity Extremities Exam Extremities exam: Present normal inspection Back Exam Back exam: Present CVA tenderness (R) and paraspinal tenderness; Absent CVA tenderness (L) or vertebral tenderness Neurological Exam Neurological exam: Present alert and oriented X3 Psychiatric Psychiatric exam: Present normal affect Skin Skin exam: Present warm and dry Medical Decision Making Medical Records Medical records reviewed: Yes I reviewed the patient's medical records. Screening: Per USPSTF and CDC recommendations, given the prevalence of disease in our region, it is our hospital?s policy to screen for HIV and viral Hepatitis for all patients aged 18 and over and those with ongoing risk factors. Sukhdeep Inquiry Pt receiving controlled substance: No Sukhdeep was queried for this patient: No Vital Signs: 08/13/25 10:07 08/13/25 10:07 08/13/25 11:00 Temperature 98.2 F 98.2 F Temperature Source Oral Oral Pulse Rate 88 77 Pulse Rate [Right] 88 Respiratory Rate 18 18 18 Blood Pressure 166/105 H 149/92 H Blood Pressure [Right Arm] 166/105 H Blood Pressure Mean [Right Arm] 125 Blood Pressure Source Automatic Cuff Automatic Cuff Blood Pressure Source [Right Arm] Automatic Cuff Blood Pressure Position Supine Supine Blood Pressure Position [Right Arm] Supine 02 Sat by Pulse Oximetry 96 96 98 Oxygen Delivery Method Room Air Room Air Room Air 08/13/25 11:26 Temperature Temperature Source Pulse Rate 73 Pulse Rate [Right] Respiratory Rate 18 Blood Pressure 137/93 H Blood Pressure [Right Arm] Blood Pressure Mean [Right Arm] Blood Pressure Source Automatic Cuff Blood Pressure Source [Right Arm] Blood Pressure Position Supine Blood Pressure Position [Right Arm] 02 Sat by Pulse Oximetry 97 Oxygen Delivery Method Room Air Lab Data Lab results reviewed: Yes I reviewed the patient's lab results. Lab Results 08/13/25 10:02: Urine Color Yellow, Urine Appearance Clear, Urine pH 7.5, Ur Specific Lagro 1.025, Urine Protein Trace, Urine Glucose (UA) Negative, Urine Ketones Negative, Urine Blood Negative, Urine Nitrate Negative, Urine Bilirubin Negative, Urine Urobilinogen 0.2, Ur Leukocyte Esterase Negative, Urine RBC None, Urine WBC None, Ur Squamous Epith Cells None, Urine Bacteria None 08/13/25 10:10: WBC 11.2 H, RBC 5.41, Hgb 17.3, Hct 50.4, MCV 93.2, MCH 32.0 H, MCHC 34.3, RDW 13.3, Plt Count 245, MPV 10.2, Neut % (Auto) 63.7, Lymph % (Auto) 24.7, Baxter % (Auto) 6.0, Eos % (Auto) 4.5, Baso % (Auto) 0.7, Neut # (Auto) 7.2, Lymph # (Auto) 2.8, Baxter # (Auto) 0.7, Eos # (Auto) 0.5 H, Baso # (Auto) 0.1, Sodium 141, Potassium 4.2, Chloride 105, Carbon Dioxide 29, Anion Gap 11.2, BUN 8 L, Creatinine 0.80, Estimated Creat Clear 205, Estimated GFR 108, Est GFR ( Amer) 131, Glucose 95, Lactate 1.1, Calcium 9.5, Total Bilirubin 1.5 H, AST 41, ALT 50, Alkaline Phosphatase 73, Total Protein 7.6, Albumin 4.4, Globulin 3.2, Albumin/Globulin Ratio 1.4, Lipase 83, HCV Ab AILYN w/Rflx PCR Qn Negative 08/13/25 10:10 08/13/25 10:10 Orders (Tests/Meds): ED MEDICATIONS Discontinued Medications Generic Name Dose Route Start Last Admin Trade Name Freq PRN Reason Stop Dose Admin Iopamidol 75 ml 08/13/25 10:47 08/13/25 10:48 Iopamidol-370 (76%);100ml Bottle IV 08/13/25 10:48 75 ml ONCE ONE Administration Ketorolac Tromethamine 15 mg 08/13/25 10:04 08/13/25 10:18 Ketorolac 15mg/Ml Vial IV 08/13/25 10:05 15 mg ONCE ONE Administration Sodium Chloride 10 ml 08/13/25 10:47 08/13/25 10:48 Sodium Chloride 0.9% 10ml Syr (Rad Only) IV 08/13/25 10:48 10 ml ONCE ONE Administration ORDERS Category Date Time Status CT abdomen pelvis w con Stat Cat Scan 08/13/25 10:09 Taken Complete Blood Count Auto Diff Stat Lab 08/13/25 10:10 Completed Comprehensive Metabolic Panel Stat Lab 08/13/25 10:10 Completed HIV Combo Stat Lab 08/13/25 10:10 Received Hepatitis C Ab Qual. W/ RFX Stat Lab 08/13/25 10:10 Completed Lactic Acid Stat Lab 08/13/25 10:10 Completed Lipase Stat Lab 08/13/25 10:10 Completed Urinalysis and Microscopic Stat Lab 08/13/25 10:02 Completed Medical Decision Narrative: 39-year-old male presents to the emergency department accompanied by significant other for a 1 month history of right-sided flank pain, cloudy urine for 1 week and chronic diarrhea, differential diagnose include but not limited to, acute lumbar sacral strain, nephrolithiasis, ureterolithiasis, acute pyelonephritis, cystitis, pancreatitis, diverticulitis, degenerative disc disease of lumbar spine, among others. I discussed this patient case with the attending physician Dr. Casarez he saw and examined the patient as well Will obtain basic laboratory studies, UA, lipase lactic acid level, will give 15 mg IV Toradol for pain, obtain CT head and pelvis with contrast for further evaluation of characterization. CBC noted for minimal leukocytosis 11.2 otherwise unremarkable CBC UA is unremarkable. CMP notable for minimal bilirubin elevation 1.5, otherwise grossly unremarkable, lipase is within normal limits. I reviewed the patient's CT abdomen pelvis with contrast along the corresponding radiologic report, no acute abnormality of the abdomen pelvis, fat infiltration of the liver. I discussed the results with the patient family bedside patient family in agreement with current treatment plan/discharge plan. Most likely acute lumbar sacral strain, that would be the reason for the patient's symptomatology, as patient is had negative CT abdomen pelvis, unremarkable laboratory studies, recommend follow-up with PCP for possible MRI of the lumbar spine, if symptoms persist, no urinary bladder or bowel dysfunction, 5 out of 5 strength in the bilateral lower and upper extremities. Patient voiced understanding and agreement with the current treatment plan/discharge plan. Strict ED return precautions given. Will prescribe the patient at 750 mg p.o. methocarbamol as needed for symptomatic relief, recommended other anti-inflammatory medications presented medically. Critical Care Critical Care Time Critical Care Time: No
[2025-08-13 10:07] VITALS: BP 166/105; PULSE 88; RESP 18; TEMP 36.8; O2SAT 96; BMI 35.5
[2025-08-13 10:07] LABS: Microscopic, Urine URINE MICROSCOPIC (MICROSCOPIC)
--- NOTE | 2025-08-13 10:09 | CT_ITS ---
FINAL REPORT TECHNIQUE: Thin section axial images are obtained through the abdomen and pelvis after intravenous contrast. Reconstruction images were obtained from the axial data. Exam was performed using dose reduction techniques. CLINICAL HISTORY: rt Sided flank pain COMPARISON: 11/12/2021 FINDINGS: LUNG BASES: Evidence of granulomatous disease. Otherwise, lung bases are clear. Heart size is normal. LIVER: Fatty infiltrated. No focal lesion. GALLBLADDER/BILIARY SYSTEM: Gallbladder is absent. No biliary dilatation. SPLEEN: Unremarkable. PANCREAS: Unremarkable. ADRENALS: Unremarkable. KIDNEYS/URETERS/BLADDER: No hydronephrosis, renal mass, or renal stone. Unremarkable urinary bladder. GI TRACT: No small bowel obstruction or dilatation. Normal appendix. No acute colon abnormality. PELVIC ORGANS: Unremarkable for age. LYMPH NODES/RETROPERITONEUM/MESENTERY: No lymphadenopathy. No abdominal aortic aneurysm. ABDOMINAL WALL: The abdominal wall is intact. FREE FLUID: No ascites. BONES: No acute osseous abnormality. IMPRESSION: No acute abnormality of the abdomen or pelvis. Fatty infiltration of the liver. Reviewed, Interpreted and Dictated by Evelin Carrillo MD Transcribed by Yaquelin Jeffery Authenticated and [facility]
[2025-08-13 10:12] LABS: Bilirubin,Urine Negative (Negative); Color,Urine YELLOW (Yellow); Glucose,Urine (UA) Negative (Negative); Ketones,Urine Negative (Negative); Leukocyte Esterase,Urine Negative (Negative); PH,Urine 7.5 (5.0-8.5); Protein,Urine TRACE (Negative); Specific Gravity, Urine 1.025 (1.005-1.030); Urobilinogen,Urine 0.2 EU/dl (0.2)
[2025-08-13 10:17] LABS: Hematocrit 50.4 % (42.0-52.0); Hemoglobin 17.3 g/dL (14.1-18.0); Immature Granulocytes % 0.4 %; Mean Corpuscular HGB Conc 34.3 g/dL (31.8-35.4); Mean Corpuscular Hemoglobin 32.0 pg (27.0-31.2); Mean Corpuscular Volume 93.2 fl (80-94); Nucleated Red Blood Cells % 0 %; Platelet Count 245 K/mm3 (142-424); Red Blood Count 5.41 M/mm3 (4.60-6.20); Red Cell Distribution Width-SD 45.2 fL; White Blood Count 11.2 K/mm3 (4.8-10.8)
[2025-08-13] MEDS: KETOROLAC 15MG/ML VIAL 15 MG IV (10:18)
--- OUTSIDE RECORDS SUMMARY | 2025-08-13 10:19 | XMS_ITS | Clinical Summary ---
Author Organization [facility] Address [address] [place] [address] Phone Care Team Providers Care Steelscope Operator Name Role Phone Tammy Danielle MD, Harold [...] COVID-19 Vaccine ( - 2023-2 5 season) 2025 Influenza Vaccine (#1) 2025 DTaP/TDaP/Td (4 - [...] weight General No Yolanda Lobo, A Insurance [facility] [id number] [address] [facility] [id number] [facility] Care Teams Steelscope Operator Relationship Specialty Start Date End Date Scot Munoz MD [address] [place] [phone] PCP - General Family Medicine 09/21/14
[2025-08-13 10:30] LABS: Albumin Level 4.4 g/dl (3.5-5.0); Chloride 105 mmol/L (98-107); Potassium 4.2 mmoL/L (3.5-5.1); Sodium 141 mmol/L (136-145)
[2025-08-13 10:32] LABS: Blood Urea Nitrogen 8 mg/dl (9-20); Creatinine Clearance Estimated 205 mL/min (50-200); Creatinine,Serum 0.80 mg/dl (0.66-1.25); Estimated Glomerular Filt Rate 108 ml/min (>60); GFR (African American) 131 ML/MIN (>60); Lipase 83 U/L (23-300)
[2025-08-13 10:33] LABS: Alanine Aminotransferase 50 U/L (12-78); Albumin/Globulin Ratio 1.4 (1.1-1.8); Alkaline Phosphatase 73 U/L (38-126); Anion Gap 11.2 mEq/L (5-15); Aspartate Amino Transferase 41 U/L (17-59); Bilirubin,Total 1.5 mg/dl (0.2-1.3); Calcium 9.5 mg/dl (8.4-10.2); Carbon Dioxide 29 mmol/L (22.0-30.0); Globulin 3.2 g/dL (1.3-3.2); Glucose 95 mg/dl (74-100); Total Protein,Serum 7.6 g/dl (6.3-8.2)
[2025-08-13] MEDS: SODIUM CHLORIDE 0.9% 10ML SYR (RAD ONLY) 10 ML IV (10:48)
[2025-08-13] MEDS: IOPAMIDOL-370 (76%);100ML BOTTLE 75 ML IV (10:48)
[2025-08-13 11:00] VITALS: BP 149/92; PULSE 77; RESP 18; O2SAT 98
[2025-08-13 11:26] VITALS: BP 137/93; PULSE 73; RESP 18; O2SAT 97
[2025-08-13 11:45] LABS: Hepatitis C Ab Qual. W/ RFX NEGATIVE (Negative)
[2025-08-13 12:13] VITALS: BP 145/74; PULSE 85; RESP 16; TEMP 36.9; O2SAT 99
== END 2025-08-13 12:13 | disposition home or self-care (01) ==
PROVIDERS: Physician Assistant; Emergency Provider Student in an Organized Health Care Education/Training Program; PCP Family Medicine
DX: S39.012A Strain of muscle, fascia and tendon of lower back, initial encounter (principal); F17.210 Nicotine dependence, cigarettes, uncomplicated; X50.0XXA Overexertion from strenuous movement or load, initial encounter
CPT/HCPCS: 74177; 80053; 81001; 83605; 83690; 85025; 86803; 87389; 96374; 99284; J1885; Q9967